=== PATIENT | male | born 1955 | race Caucasian/White ===

== ENCOUNTER 2022-10-05 18:55 | Inpatient (IN) | payer MEDICARE, BC, SELFPAY ==
--- NOTE | ~2022-10-05 | XR_ITS ---
EXAMINATION: XR HIP, RIGHT CLINICAL INFORMATION: Acute right hip pain COMPARISON: None available. TECHNIQUE: Two views of the right hip. FINDINGS: There is a subtle irregular lucency seen along the intertrochanteric region suggestive of complex fracture. There is no dislocation. There is total left hip prosthesis in place.. Rest of the visualized pelvis is unremarkable XR/XR hip RT w PEL1V IMPRESSION: Nondisplaced complex intertrochanteric fracture right hip. Total left hip prosthesis is in place with no loosening. There is no dislocation.
--- NOTE | ~2022-10-05 | CT_ITS ---
EXAMINATION: CT PELVIS WITHOUT CONTRAST CLINICAL INFORMATION: Right hip pain COMPARISON: AP pelvis performed earlier today at 6:00 PM TECHNIQUE: Helical scanning was performed with submillimeter collimation through the pelvis. Sagittal and coronal multiplanar 2-D reconstructions were obtained. This CT examination was performed using dose optimization techniques as appropriate, variously including the following: *Automated exposure control *Adjustment of mA and/or kV according to patient size (this includes techniques or standardized protocols for targeted exams where dose is matched to indication/reason for exam; i.e. extremities or head) *Use of iterative reconstruction technique DLP: 320 mGy-cm FINDINGS: PELVIS: There is scattered stool and gas seen throughout the colon without distention. The small bowel loops are normal caliber. No retroperitoneal lymph nodes or mass seen. There is no free fluid or free air. The bladder is nondistended with multiple dependent radiopaque calculi or gravel. No bladder wall thickening seen. OSSEOUS STRUCTURES: There is a right hip comminuted intertrochanteric fracture without displacement. No additional fracture seen. There is diffuse osteopenia. There is a normal left hip prosthesis in place. CT/CT pelvis wo IV con IMPRESSION: 1. Comminuted right hip intertrochanteric fracture without displacement or dislocation. 2. Total left hip prosthesis in satisfactory alignment.. 3. Diffuse osteopenia..
--- NOTE | ~2022-10-05 | FL_ITS ---
EXAMINATION: XR FLUOROSCOPY WITH IMAGES CLINICAL INFORMATION: Right hip fracture. COMPARISON: 10/05/2022. TECHNIQUE: Fluoroscopy Supervised By: Dr. Sera Stephenson. Fluoroscopy Time: 0.9 minutes. 20.9 mg DAP: 0.363 Gycm2. Images: 5. FINDINGS: 5 images demonstrate placement of compression screw and intramedullary radha for right proximal femoral fracture. Alignment appears satisfactory on provided imaging. FL/FL guidance in OR IMPRESSION: Intraoperative fluoroscopy for orthopedic procedure.
[2022-10-05 19:13] VITALS: BP 125/86; BP 142/98; PULSE 79; PULSE 81; RESP 18; TEMP 36.6; O2SAT 98; O2SAT 99; BMI 23.9
--- NOTE | 2022-10-05 19:24 | ED.GENADULT ---
HPI - General Adult General Chief complaint: Extremity Injury, Lower Stated complaint: fall Time Seen by Provider: 10/05/22 19:14 Source: patient and EMS Mode of arrival: EMS Limitations: other (Dementia) History of Present Illness HPI narrative: 66-year-old male with history of dementia presents with right hip pain. Appears the hip pain may have started 2 days ago. There was no witnessed fall or injury. The pain is moderate in nature. Does not radiate. Worse with movement. Patient does claim to have fallen but he reports this could have happened months ago. He denies any headache, vision changes, nausea, vomiting, photo or phonophobia. He denies any new numbness, tingling or focal weakness. He denies any other musculoskeletal complaints. Related Data Allergies Allergy/AdvReac Type Severity Reaction Status Date / Time No Known Allergies Allergy Verified 10/05/22 19:18 [facility] Social History Social History Advance Directives: No Advance Directives Information Provided: No Physical Exam ED Vital Signs: Vital Signs - 24 hr 10/05/22 19:13 10/05/22 20:44 Temperature 97.9 F 97.7 F Pulse Rate 79 68 Respiratory Rate 18 16 Blood Pressure 125/86 134/75 Pulse Oximetry 98 100 Oxygen Delivery Method Room Air Room Air BMI result Body Mass Index 23.9 GEN: Well developed, no acute distress, alert, oriented to person and place HEENT: Normocephalic, atraumatic, normal external ears, nose appears normal, no oropharyngeal edema or exudates Eyes: Normal to appearance Neck: Supple, no lymphadenopathy Respiratory: Talks in complete sentences, no respiratory distress, clear to auscultation bilaterally Cardiovascular: Regular rate and rhythm, no murmurs rubs or gallops Abdomen: Soft, nontender, nondistended, no guarding, no rebound Back: No CVA tenderness Extremities: No clubbing cyanosis or edema, right leg may be slightly shortened and slightly externally rotated, tender range of motion Neurologic: No focal neurologic deficits, cranial nerves 2-12 intact, strength is 5/5 bilaterally Skin: No rash Course Course Course Narrative: 66-year-old male presents with right hip pain. Reportedly has a nondisplaced hip fracture on the right leg according to external x-ray report however, I do not have this report to confirm this. Patient denies any other complaints. He does have a slight external rotation and shortening of the right leg. The this is concerning for hip fracture. Will order an x-ray and re-evaluate patient there is no evidence of additional trauma. This time, there is no indication to do any further imaging studies. Should a fracture be evident on x-ray, will order routine lab testing and admitted for possible surgical repair. Reevaluation(s) Reevaluation #1: Patient with hip Fracture. Discussed with JOSHUA Meyers after midnight, needs medical clearance. Time: 21:55 Medications Administered Discontinued Medications Generic Name Dose Route Start Last Admin Trade Name Freq PRN Reason Stop Dose Admin Oxycodone HCl 5 mg 10/05/22 19:18 10/05/22 19:25 Oxycodone Hcl Immed Release 5 Mg Tablet PO 10/05/22 19:19 5 mg ONCE ONE Administration Medical Decision Making Medical Decision Making MDM Narrative: 66-year-old male presents with right hip pain. Reportedly has a nondisplaced hip fracture on the right leg according to external x-ray report however, I do not have this report to confirm this. Patient denies any other complaints. He does have a slight external rotation and shortening of the right leg. The this is concerning for hip fracture. Will order an x-ray and re-evaluate patient there is no evidence of additional trauma. This time, there is no indication to do any further imaging studies. Should a fracture be evident on x-ray, will order routine lab testing and admitted for possible surgical repair Differential Diagnosis Differential Diagnoses: The differential diagnosis associated with the presentation includes (Fracture, sprain, strain, contusion, spasm) closed right hip fracture Admission/Observation Consideration of admission/observation: Escalation of care including admission/observation considered Lab Data 10/05/22 21:25 10/05/22 21:25 Labs: Lab Results 10/05/22 10/05/22 10/05/22 Range/Units 21:25 21:25 21:25 WBC 5.8 (4.8-10.8) X10*3/uL RBC 3.95 L (4.60-5.80) X10*6/uL Hgb 12.5 L (14.0-18.0) g/dl Hct 37.5 L (42.0-52.0) % MCV 94.9 (80.0-98.0) fL MCH 31.6 (27.0-33.0) pg MCHC 33.3 (31.0-36.0) g/dl RDW 12.8 (11.0-16.0) % Plt Count 213 (160-400) X10*3/uL MPV 8.4 L (9.4-12.4) fL Immature Gran % (Auto) 1.0 H (0.0-0.4) % Neut % (Auto) 66.7 (45-73) % Lymph % (Auto) 16.8 L (20-40) % [place] % (Auto) 9.0 (2-11) % Eos % (Auto) 6.2 H (0-4) % Baso % (Auto) 0.3 (0-2) % Lymph # (Auto) 1.0 L (1.2-4.9) X10*3/uL [place] # (Auto) 0.5 (0.1-1.2) X10*3/uL Eos # (Auto) 0.4 (0.0-0.4) X10*3/uL Baso # (Auto) 0.0 (0.0-0.2) X10*3/uL Abs Immat Gran (auto) 0.06 H (0.00-0.03) X10*3/uL Absolute Neuts (auto) 3.9 (2.0-8.3) x10*3/uL Absolute Nucleated RBC 0.000 (0.0-0.012) X10*3/uL Nucleated RBC % (auto) 0.0 (0.0-0.2) /100WBC PT 10.8 (10.0-13.1) SEC INR 0.9 (0.9-1.1) APTT 36.7 H (26.0-36.4) SEC Sodium 139 (135-145) mmol/L Potassium 4.3 (3.3-5.1) mmol/L Chloride 103 (96-108) mmol/L Carbon Dioxide 31 H (22-29) mmol/L Anion Gap 9 L (12-20) BUN 21 H (9-16) mg/dL Creatinine 0.65 (0.5-1.4) mg/dL Estim Creat Clear Calc 113.8 Estimated GFR > 60 Random Glucose 103 (60-115) mg/dL Calcium 9.2 (8.4-10.2) mg/dL Independent Interpretation I performed an independent interpretation of an: EKG (Normal sinus rhythm heart rate 69, normal intervals, no acute ST elevations or depressions) and Plain X-Ray Radiology Impression Discussion of test interpretation with radiology: I have reviewed the radiologist's reading. ( XR/XR hip RT w PEL1V IMPRESSION: Nondisplaced complex intertrochanteric fracture right hip. Total left hip prosthesis is in place with no loosening. There is no dislocation. Dictated By:Angelito De La Cruz MDSigned By:<Electronically signed by Angelito De La Cruz MD in OV>10/05/22) Independent Historian Clinical information obtained from an independent historian. History obtained from or confirmed by: EMS Prescription Management I considered prescription management with: Pain Medication Discharge Plan Discharge Clinical Impression: Fracture of hip Patient Disposition: Admitted As Inpatient
[2022-10-05] MEDS: oxyCODONE HCl Immed Release 5 MG TABLET PO (19:25)
[2022-10-05 20:44] VITALS: BP 134/75; PULSE 68; RESP 16; TEMP 36.5; O2SAT 100
--- NOTE | 2022-10-05 20:51 | ECG_ITS ---
Test Reason : CHEST PAIN Blood Pressure : / mmHG Vent. Rate : 069 BPM Atrial Rate : 069 BPM P-R Int : 204 ms QRS Dur : 100 ms QT Int : 376 ms P-R-T Axes : 058 029 063 degrees QTc Int : 402 ms Normal sinus rhythm Normal ECG No previous ECGs available Referred By: Colt Jackson Electronically Signed By:ERIKA ALEXANDER
[2022-10-05 21:29] LABS: MANUAL DIFF FLAG NO
[2022-10-05 21:31] LABS: Basophils Percent Auto 0.3 % (0-2); Eosinophils Absolute Auto 0.4 X10*3/uL (0.0-0.4); Eosinophils Percent Auto 6.2 % (0-4); Hematocrit 37.5 % (42.0-52.0); Hemoglobin 12.5 g/dl (14.0-18.0); Imm Gran Abs Auto 0.06 X10*3/uL (0.00-0.03); Lymphocytes Percent Auto 16.8 % (20-40); Mean Corpuscular HGB Conc 33.3 g/dl (31.0-36.0); Mean Corpuscular Hemoglobin 31.6 pg (27.0-33.0); Mean Corpuscular Volume 94.9 fL (80.0-98.0); Mean Platelet Volume 8.4 fL (9.4-12.4); Monocytes Absolute Auto 0.5 X10*3/uL (0.1-1.2); Neutrophils Absolute Auto 3.9 x10*3/uL (2.0-8.3); Neutrophils Percent Auto 66.7 % (45-73); Platelet Count 213 X10*3/uL (160-400); Red Blood Count 3.95 X10*6/uL (4.60-5.80); Red Cell Distribution Width 12.8 % (11.0-16.0); White Blood Count 5.8 X10*3/uL (4.8-10.8)
[2022-10-05 21:36] LABS: INTERNATIONAL NORM RATIO 0.9 (0.9-1.1); Prothrombin Time 10.8 SEC (10.0-13.1)
[2022-10-05 21:39] LABS: Partial Thromboplastin Time 36.7 SEC (26.0-36.4)
[2022-10-05 21:42] LABS: Anion Gap 9 (12-20); Blood Urea Nitrogen 21 mg/dL (9-16); Calcium 9.2 mg/dL (8.4-10.2); Carbon Dioxide 31 mmol/L (22-29); Chloride 103 mmol/L (96-108); Creatinine Clr Calc Pharmacy 113.8; Estimated Glomerular Filt Rate > 60; Glucose Random 103 mg/dL (60-115); Potassium 4.3 mmol/L (3.3-5.1); Sodium 139 mmol/L (135-145)
[2022-10-05 22:00] VITALS: BP 123/83; PULSE 67; RESP 14; TEMP 36.2; O2SAT 98
--- NOTE | 2022-10-05 22:00 | PC.NURSE ---
late entry-this rn assisted pt in changing into hospital gown. bedlinens changed. excess linens removed from bed. pt HOB lowered for comfort
--- NOTE | 2022-10-05 22:21 | P.HPHOSP_ITS ---
History of Present Illness Date of Service: 10/05/22 Attending physician on admission: Corinne Saha Chief Complaint: hip pain This is a 66-year-old male with a past medical history as noted below who presents to the emergency department with right-sided hip pain ongoing for the past 2 days. Unfortunately, patient is a limited historian secondary to dementia however he denies recent falls/trauma. Patient did report to ED provider that he ?might have fallen a few months ago?. Unfortunately, I am unable to reach patient's mother whom he lives with at this time. Currently, denies headache, nausea, vomiting, numbness, tingling or weakness trauma extremities. Hip and pelvis x-ray:Nondisplaced complex intertrochanteric fracture right hip. Total left hip prosthesis is in place with no loosening. There is no dislocation. Official read of CT pelvis pending at time of this dictation. Initial laboratory results: HGB 12 0.5/37.5, platelets 213, PTT/INR 10.8/0.9, APTT 36.7, BUN/creatinine 21/0.65, carbon dioxide 31, anion gap 9. In the emergency department the above was performed and patient received 5 mg p.o. oxycodone. The decision was made to admit patient for medical management. Review of Systems Review of Systems: A complete 12 point review of systems was performed and are negative if not noted in HPI. [facility] Medical History (Updated 10/05/22 @ 22:56 by JENA Dupree) Chronic back pain Dementia Skull fracture Pertinent family history: Patient reports mother is healthy Surgical History (Updated 10/05/22 @ 22:56 by JENA Dupree) History of surgery on lower extremity Social History Advance Directives: No Advance Directives Information Provided: No Meds Allergies Allergy/AdvReac Type Severity Reaction Status Date / Time No Known Allergies Allergy Verified 10/05/22 19:18 Physical Exam Vital Signs and Narrative: Vital Signs: Last Vital Signs Temp 97.2 F 10/05/22 22:00 Pulse 67 10/05/22 22:00 Resp 14 10/05/22 22:00 BP 123/83 10/05/22 22:00 Pulse Ox 98 10/05/22 22:00 O2 Del Method Room Air 10/05/22 22:00 BMI result Body Mass Index 23.9 Const: Other: General: Appears stated age, in no acute distress, patient is limited with replies to questions secondary to dementia. Skin: Warm and well perfused, no obvious lesions, bruises, open wounds or sores Cardiology: Regular rate and rhythm, no murmurs, rubs, gallops or clicks, no JVD or carotid bruits appreciated Respiratory: Lungs CTAB, no inspiratory wheezing, rales or rhonchi, no increased accessory muscle use noted Abdomen: Soft, non distended, nontender, bowel sounds active in all 4 quadrants, no abdominal guarding or Wayne sign Musculoskeletal: Extremity: No pitting edema noted, no redness, tenderness or swelling noted to bilateral lower extremities. Right lower extremity mildly rotated externally, tenderness noted to right hip on exam without bruising. Neuro: Alert and oriented to person and situation, limited historian secondary to dementia Psych: Calm, appropriate, follows commands, no agitation restlessness noted Results Labs 10/05/22 21:25 10/05/22 21:25 Labs: Laboratory Results - last 24 hr 10/05/22 10/05/22 10/05/22 21:25 21:25 21:25 MCV 94.9 MCH 31.6 MCHC 33.3 RDW 12.8 Plt Count 213 MPV 8.4 L Immature Gran % (Auto) 1.0 H Neut % (Auto) 66.7 Lymph % (Auto) 16.8 L [place] % (Auto) 9.0 Eos % (Auto) 6.2 H Baso % (Auto) 0.3 Lymph # (Auto) 1.0 L [place] # (Auto) 0.5 Eos # (Auto) 0.4 Baso # (Auto) 0.0 Abs Immat Gran (auto) 0.06 H Absolute Neuts (auto) 3.9 Absolute Nucleated RBC 0.000 Nucleated RBC % (auto) 0.0 PT 10.8 INR 0.9 APTT 36.7 H Anion Gap 9 L Estim Creat Clear Calc 113.8 Estimated GFR > 60 Random Glucose 103 Calcium 9.2 Blood Type Antibody Screen 10/05/22 21:25 MCV MCH MCHC RDW Plt Count MPV Immature Gran % (Auto) Neut % (Auto) Lymph % (Auto) [place] % (Auto) Eos % (Auto) Baso % (Auto) Lymph # (Auto) [place] # (Auto) Eos # (Auto) Baso # (Auto) Abs Immat Gran (auto) Absolute Neuts (auto) Absolute Nucleated RBC Nucleated RBC % (auto) PT INR APTT Anion Gap Estim Creat Clear Calc Estimated GFR Random Glucose Calcium Blood Type O Positive Antibody Screen NEGATIVE Imaging Radiologist's Impressions: Impressions Hip/Pelvis X-Ray 10/05/22 19:47 IMPRESSION: Nondisplaced complex intertrochanteric fracture right hip. Total left hip prosthesis is in place with no loosening. There is no dislocation. Assessment and Plan (1) Fracture of hip: Status: Acute Plan This is a [age]-year-old male with a past medical history of dementia will be admitted to the hospital due to right hip fracture. ACUTE MEDICAL ISSUES: Right hip fracture -Hip and pelvis x-ray:Nondisplaced complex intertrochanteric fracture right hip. Total left hip prosthesis is in place with no loosening. There is no dislocation. -Official read of CT pelvis pending at time of this dictation. -analgesics, antiemetics antipyretics ordered -consult placed for ortho as patient will likely require surgical repair in a.m. -NPO at midnight. IV fluids. Up questions in place. CHRONIC MEDICAL ISSUES: Chronic back pain -patient wears a brace. Denies change in pain level. Fall precautions in place. Dementia -frequent reorientation. Fall /aspiration precautions. OTHER: DVT prophylaxis-intermittent sequential boots, patient requires surgical procedure in a.m., hold off chemical. Patient is presumed full code. HCP/person to contact is patient's mother Christal Mac, Time Spent With Patient Time: Total time managing care of this patient today ____ minutes. Quality Stroke Does the patient have a stroke diagnosis?: No VTE Prior VTE?: No VTE Risk Level:: Medical - moderate - high VTE Device Contraindication: N/A - Device Ordered VTE Drug Contraindication: Treatment Not Indicated
[2022-10-06] VITALS (11 sets, daily range): BP systolic 96–136; BP diastolic 55–87; PULSE 62–78; RESP 14–18; TEMP 36.1–36.6; O2SAT 97–99; BMI 23.9
[2022-10-06] MEDS: oxyCODONE HCl Immed Release 5 MG TABLET PO (00:54)
[2022-10-06] MEDS: Lactated Ringers 1,000 ML 80 ML IVCONT ×2 (01:20→11:35)
[2022-10-06] MEDS: 0.9 % Sodium Chloride Flush 3 ML SYRINGE IVFLUSH (01:21)
--- NOTE | 2022-10-06 01:30 | PC.NURSE ---
late entry- iv placed. 20 g in L ac. pt medicated according to aug. pt boosted up in bed. lights dimmed
--- NOTE | 2022-10-06 04:20 | PC.NURSE ---
IV line infiltrated. this rn placed 20g in R AC. pt tolerated well. . IV fluids switched to this iv line. running well. no signs of occlusion. IV in L AC removed at this time
[2022-10-06] MEDS: oxyCODONE HCl Immed Release 5 MG TABLET 7.5 MG PO (06:15)
--- NOTE | 2022-10-06 06:19 | PC.NURSE ---
pt reporting 7/10 pain at this time. pt medicated according to mar. pt clean and dry at this time. this rn emptied 200ml of urine from bedside urinal. pt states no new needs at this time
[2022-10-06 06:26] LABS: Hematocrit 36.9 % (42.0-52.0); Hemoglobin 12.2 g/dl (14.0-18.0); Mean Corpuscular HGB Conc 33.1 g/dl (31.0-36.0); Mean Corpuscular Hemoglobin 31.6 pg (27.0-33.0); Mean Corpuscular Volume 95.6 fL (80.0-98.0); Mean Platelet Volume 8.5 fL (9.4-12.4); Platelet Count 208 X10*3/uL (160-400); Red Blood Count 3.86 X10*6/uL (4.60-5.80); White Blood Count 5.4 X10*3/uL (4.8-10.8)
[2022-10-06 06:43] LABS: Anion Gap 11 (12-20); Blood Urea Nitrogen 17 mg/dL (9-16); Calcium 9.2 mg/dL (8.4-10.2); Carbon Dioxide 30 mmol/L (22-29); Chloride 104 mmol/L (96-108); Creatinine Clr Calc Pharmacy 115.6; Estimated Glomerular Filt Rate > 60; Glucose Random 86 mg/dL (60-115); Potassium 4.1 mmol/L (3.3-5.1); Sodium 141 mmol/L (135-145)
--- NOTE | 2022-10-06 07:08 | PC.NURSE ---
pt alert, reporting 7/10 low back pain. LR running. will cont to [facility]
--- NOTE | 2022-10-06 07:38 | PHA.MEDREC ---
Pharmacy Consult ? Medication Reconciliation Pharmacy has completed the medication reconciliation. Pt with list from [facility] and [facility]
--- NOTE | 2022-10-06 08:13 | P.HPOP_ITS ---
History of Present Illness History of Present Illness Date of Service: 10/06/22 Chief complaint: fall Narrative: Nabeel Mac is a 66 year old male who resides at [facility] in [place]. He has a PMH significant for a Brain tumor with brain surgery, Epilepsy last seizure was believed to be December of last year, anxiety, dementia and dysphagia. Patient reports that he fell about 2 weeks ago and this is also confirmed with the family via telephone. He walks at baseline with a walker. No thinner use. Hx of left hip fx with implant. X-rays obtained in the ED reveal a right hip intertrochanteric fracture. The patient was admitted to the medicine service with orthopedic consult for further evaluation and treatment. Review of Systems Review of Systems: Yes all other systems are reviewed and are negative [facility] Past Medical History Medical History (Updated 10/05/22 @ 22:56 by JENA Dupree) Chronic back pain Dementia Skull fracture Surgical History Surgical History (Updated 10/05/22 @ 22:56 by JENA Dupree) History of surgery on lower extremity Social History Social History Patient Tobacco Use Status: Never used Tobacco Smoked in Last 30 Days: No Use of substances other than those prescribed or required for medical reasons: No Advance Directives: No Advance Directives Information Provided: No Nutrition Risks: No Nutritional Risk Meds Allergies Allergy/AdvReac Type Severity Reaction Status Date / Time No Known Allergies Allergy Verified 10/05/22 19:18 Active Medications: Current Medications Acetaminophen (Acetaminophen 325 Mg Tablet) 650 mg PO Q6H PRN PRN Reason: FEVER, Pain,(Pain Scale 1-3) Al Hydroxide/Mg Hydroxide (Magnesium Hydrox/Alum Hydrox 30 Ml Oral.Susp) 30 ml PO Q4H PRN PRN Reason: Indigestion Baclofen (Baclofen 10 Mg Tablet) 5 mg PO BID MICAELA Bisacodyl (Bisacodyl 10 Mg Supp.Rect) 10 mg [place] DAILY PRN PRN Reason: Constipation Docusate Sodium (Docusate Sodium 100 Mg Capsule) 100 mg PO BID MICAELA Folic Acid (Folic Acid 1 Mg Tablet) 1 mg PO DAILY MICAELA Guaifenesin (Guaifenesin 100 Mg/5 Ml Liquid) 10 ml PO Q4H PRN PRN Reason: Cough Lactated Ringer's (Lr) 1,000 mls @ 80 mls/hr IVCONT .[id number] [facility] Last Admin: 10/06/22 01:20 Dose: 80 mls/hr Latanoprost (Latanoprost 0.005 % Ophth Elizabeth 2.5 Ml Drops) 1 drop EYE-BOTH BEDTIME [facility] Levetiracetam (Levetiracetam 1,000 Mg Tablet) 1,000 mg PO BID [facility] Magnesium Hydroxide (Milk Of Magnesia 30 Ml Oral.Susp) 30 ml PO DAILY PRN PRN Reason: Constipation Melatonin (Melatonin 3 Mg Tablet) 6 mg PO BEDTIME [facility] Naloxone HCl (Naloxone Hcl 0.4 Mg/Ml Vial) 0.1 mg IVPUSH Q2M PRN PRN Reason: Respiratory Rate < 10 Ondansetron HCl (Ondansetron Hcl 4 Mg/2 Ml Vial) 4 mg IVPUSH Q8H PRN PRN Reason: Nausea and Vomiting Oxycodone HCl (Oxycodone Hcl Immed Release 5 Mg Tablet) 5 mg PO Q6H PRN PRN Reason: Pain, Moderate (Pain Scale 4-6 Last Admin: 10/06/22 00:54 Dose: 5 mg Oxycodone HCl (Oxycodone Hcl Immed Release 5 Mg Tablet) 7.5 mg PO Q6H PRN PRN Reason: Pain, Severe (Pain Scale 7-10) Last Admin: 10/06/22 06:15 Dose: 7.5 mg Senna (Sennosides 8.6 Mg Tablet) 17.2 mg PO BEDTIME PRN PRN Reason: Constipation Sodium Chloride (0.9 % Sodium Chloride Flush 3 Ml Syringe) 3 ml IVFLUSH QSHIFT [facility] Last Admin: 10/06/22 01:21 Dose: 3 ml Tamsulosin HCl (Tamsulosin Hcl 0.4 Mg Capsule) 0.4 mg PO DAILY [facility] Timolol Maleate (Timolol Maleate 0.5 % Oph Elizabeth 5 Ml Drbtl) 1 drop EYE-LEFT DAILY [facility] Home Medications Medication Instructions Recorded Confirmed Last Taken Type acetaminophen 325 mg tablet 650 mg PO Q4H PRN Fever 10/06/22 10/06/22 Unknown History acetaminophen 500 mg tablet 1,000 mg PO BID 10/06/22 10/06/22 Unknown History aluminum-mag hydroxide-simethicone 30 ml PO Q4H PRN Indigestion 10/06/22 3 Unknown History 200 mg-200 mg-20 mg/5 mL oral susp (Ophelia-Lanta) baclofen 5 mg tablet 5 mg PO BID 10/06/22 10/06/22 Unknown History bisacodyl 10 mg rectal suppository 10 mg [place] DAILY PRN Constipation 10/06/22 10/06/22 Unknown History folic acid 1 mg tablet 1 mg PO DAILY 10/06/22 10/06/22 Unknown History guaifenesin 100 mg/5 mL oral 200 mg PO Q4H PRN Cough 10/06/22 10/06/22 Unknown History liquid (Ophelia-Tussin) latanoprost 0.005 % eye drops 1 drp ophthalmic (eye) BEDTIME 10/06/22 10/06/22 Unknown History levetiracetam 1,000 mg tablet 1,000 mg PO BID 10/06/22 10/06/22 Unknown History linaclotide 290 mcg capsule 290 mcg PO DAILY 10/06/22 10/06/22 Unknown History (Linzess) magnesium hydroxide 400 mg/5 mL 30 ml PO DAILY PRN Constipation 10/06/22 10/06/22 Unknown History oral suspension (Milk of Magnesia) melatonin 3 mg tablet 6 mg PO BEDTIME 10/06/22 10/06/22 Unknown History menthol 5 % topical patch (Icy Hot 1 patch topical DAILY 10/06/22 10/06/22 Unknown History (menthol)) tamsulosin 0.4 mg capsule 0.4 mg PO DAILY 10/06/22 10/06/22 Unknown History timolol maleate 0.5 % eye drops 1 drp ophthalmic-Left DAILY 10/06/22 10/06/22 Un known History Physical Exam Vital Signs: Vital Signs: Last Vital Signs Temp 97.7 F 10/06/22 07:31 Pulse 68 10/06/22 07:31 Resp 17 10/06/22 07:31 BP 131/70 10/06/22 07:31 Pulse Ox 99 10/06/22 07:31 O2 Del Method Room Air 10/06/22 07:31 BMI result Body Mass Index 23.9 Const: General: cooperative, healthy appearing and no acute distress Resp: Effort & Inspection: normal respiratory effort and able to speak in complete sentences Cardio: Rate: regular rate Peripheral pulses: Peripheral pulses 2+ throughout GI: Palpation (GI): Soft to palpation Skin: Lesions: no lesions Rashes: no rashes Extrem: Other: Right hip tenderness to palpation lateral aspect. Skin is intact. Able to dorsi/plantarflex. NVI. Results Labs 10/06/22 05:48 10/06/22 05:48 Labs: Abnormal lab results 10/05/22 10/05/22 10/05/22 Range/Units 21:25 21:25 21:25 RBC 3.95 L (4.60-5.80) X10*6/uL Hgb 12.5 L (14.0-18.0) g/dl Hct 37.5 L (42.0-52.0) % MPV 8.4 L (9.4-12.4) fL Immature Gran % (Auto) 1.0 H (0.0-0.4) % Lymph % (Auto) 16.8 L (20-40) % Eos % (Auto) 6.2 H (0-4) % Lymph # (Auto) 1.0 L (1.2-4.9) X10*3/uL Abs Immat Gran (auto) 0.06 H (0.00-0.03) X10*3/uL APTT 36.7 H (26.0-36.4) SEC Carbon Dioxide 31 H (22-29) mmol/L Anion Gap 9 L (12-20) BUN 21 H (9-16) mg/dL 10/06/22 10/06/22 Range/Units 05:48 05:48 RBC 3.86 L (4.60-5.80) X10*6/uL Hgb 12.2 L (14.0-18.0) g/dl Hct 36.9 L (42.0-52.0) % MPV 8.5 L (9.4-12.4) fL Immature Gran % (Auto) (0.0-0.4) % Lymph % (Auto) (20-40) % Eos % (Auto) (0-4) % Lymph # (Auto) (1.2-4.9) X10*3/uL Abs Immat Gran (auto) (0.00-0.03) X10*3/uL APTT (26.0-36.4) SEC Carbon Dioxide 30 H (22-29) mmol/L Anion Gap 11 L (12-20) BUN 17 H (9-16) mg/dL H & H 10/05/22 10/06/22 Range/Units 21:25 05:48 Hgb 12.5 L 12.2 L (14.0-18.0) g/dl Hct 37.5 L 36.9 L (42.0-52.0) % Coagulation 10/05/22 Range/Units 21:25 INR 0.9 (0.9-1.1) All other labs normal. Assessment and Plan (1) Fracture of hip: Status: Acute Plan I discussed the case with Seema Ramachandran and explained the extent of the injury to the patient as well has his mother, Komal, and sister Camille. I discussed options available which include surgical intervention. I explained the procedure in detail along with the length of recovery and rehab course. I explained the risk, benefits and alternatives. Risk including, but not limited to infection, blood clots, bleeding, non union or malunion and nerve/tissue damage to surrounding areas. I answered all their questions and with their understanding they have consented to move forward with Operative Fixation of the right hip. The patient will be T&S, med clearance obtained by medicine and remain NPO. Camille can be reached at [phone] for consent. Patient's mother is 93 and requests we contact daughter. Time Spent With Patient Time: Total time managing care of this patient today ____ minutes. Quality Stroke Does the patient have a stroke diagnosis?: No VTE Prior VTE?: No VTE Risk Level:: Medical - moderate - high VTE Device Contraindication: N/A - Device Ordered VTE Drug Contraindication: Treatment Not Indicated Procedures Date of Service Date of Service: 10/06/22
--- NOTE | 2022-10-06 08:13 | PC.NURSE ---
Sister phone Number Camille [phone]
[2022-10-06] MEDS: Docusate Sodium 100 MG CAPSULE PO ×2 (10:25→20:25)
[2022-10-06] MEDS: Folic Acid 1 MG TABLET PO (10:26)
[2022-10-06] MEDS: levETIRAcetam 1,000 MG TABLET 1000 MG PO ×2 (10:26→20:25)
[2022-10-06] MEDS: Tamsulosin HCL 0.4 MG CAPSULE PO (10:27)
[2022-10-06] MEDS: Baclofen 10 MG TABLET 5 MG PO ×2 (10:29→20:24)
--- NOTE | 2022-10-06 10:34 | PC.NURSE ---
pt medicated per AUG. Aguilar inserted per tiged text from
--- NOTE | 2022-10-06 10:36 | P.PNIM_ITS ---
Subjective Subjective Date of Service: 10/06/22 Interval History: Seen and evaluated reports pain under fair control No fever or chills No other overnight events Review of Systems Review of Systems: Yes all other systems are reviewed and are negative Physical Exam Vital Signs: Vital Signs: Last Vital Signs Temp 97.7 F 10/06/22 07:31 Pulse 68 10/06/22 07:31 Resp 17 10/06/22 07:31 BP 131/70 10/06/22 07:31 Pulse Ox 99 10/06/22 07:31 O2 Del Method Room Air 10/06/22 07:31 BMI result Body Mass Index 23.9 Const: Other: General: no acute distress, interactive Skin: Warm and well perfused Cardiology: Regular rate and rhythm, no murmurs,, no JVD or carotid bruits appreciated Respiratory: Lungs CTAB, no inspiratory wheezing, rales or rhonchi, Abdomen: Soft, non distended, nontender, bowel sounds active Musculoskeletal: Right leg externally rotated Extremity: No pitting edemano redness, tenderness or swelling noted to bilateral lower extremities Neuro: Alert and oriented to person and situation, limited historian secondary to dementia Psych: Calm, follows commands, no agitation restlessness noted Objective Data Active Medications Acetaminophen (Acetaminophen 325 Mg Tablet) 650 mg PO Q6H PRN PRN Reason: FEVER, Pain,(Pain Scale 1-3) Al Hydroxide/Mg Hydroxide (Magnesium Hydrox/Alum Hydrox 30 Ml Oral.Susp) 30 ml PO Q4H PRN PRN Reason: Indigestion Baclofen (Baclofen 10 Mg Tablet) 5 mg PO BID [facility] Last Admin: 10/06/22 10:29 Dose: 5 mg Documented By: PREET Bisacodyl (Bisacodyl 10 Mg Supp.Rect) 10 mg [place] DAILY PRN PRN Reason: Constipation Docusate Sodium (Docusate Sodium 100 Mg Capsule) 100 mg PO BID [facility] Last Admin: 10/06/22 10:25 Dose: 100 mg Documented By: PREET Folic Acid (Folic Acid 1 Mg Tablet) 1 mg PO DAILY [facility] Last Admin: 10/06/22 10:26 Dose: 1 mg Documented By: PREET Guaifenesin (Guaifenesin 100 Mg/5 Ml Liquid) 10 ml PO Q4H PRN PRN Reason: Cough Lactated Ringer's (Lr) 1,000 mls @ 80 mls/hr IVCONT .[id number] [facility] Last Admin: 10/06/22 01:20 Dose: 80 mls/hr Documented By: MAKENZIE Latanoprost (Latanoprost 0.005 % Ophth Elizabeth 2.5 Ml Drops) 1 drop EYE-BOTH BEDTIME [facility] Levetiracetam (Levetiracetam 1,000 Mg Tablet) 1,000 mg PO BID [facility] Last Admin: 10/06/22 10:26 Dose: 1,000 mg Documented By: PREET Magnesium Hydroxide (Milk Of Magnesia 30 Ml Oral.Susp) 30 ml PO DAILY PRN PRN Reason: Constipation Melatonin (Melatonin 3 Mg Tablet) 6 mg PO BEDTIME [facility] Naloxone HCl (Naloxone Hcl 0.4 Mg/Ml Vial) 0.1 mg IVPUSH Q2M PRN PRN Reason: Respiratory Rate < 10 Ondansetron HCl (Ondansetron Hcl 4 Mg/2 Ml Vial) 4 mg IVPUSH Q8H PRN PRN Reason: Nausea and Vomiting Oxycodone HCl (Oxycodone Hcl Immed Release 5 Mg Tablet) 5 mg PO Q6H PRN PRN Reason: Pain, Moderate (Pain Scale 4-6 Last Admin: 10/06/22 00:54 Dose: 5 mg Documented By: MAKENZIE Oxycodone HCl (Oxycodone Hcl Immed Release 5 Mg Tablet) 7.5 mg PO Q6H PRN PRN Reason: Pain, Severe (Pain Scale 7-10) Last Admin: 10/06/22 06:15 Dose: 7.5 mg Documented By: MAKENZIE Senna (Sennosides 8.6 Mg Tablet) 17.2 mg PO BEDTIME PRN PRN Reason: Constipation Sodium Chloride (0.9 % Sodium Chloride Flush 3 Ml Syringe) 3 ml IVFLUSH QSHIFT [facility] Last Admin: 10/06/22 10:25 Dose: Not Given Documented By: PREET Non-Admin Reason: IV Running Tamsulosin HCl (Tamsulosin Hcl 0.4 Mg Capsule) 0.4 mg PO DAILY [facility] Last Admin: 10/06/22 10:27 Dose: 0.4 mg Documented By: PREET Timolol Maleate (Timolol Maleate 0.5 % Oph Elizabeth 5 Ml Drbtl) 1 drop EYE-LEFT DAILY [facility] Labs 10/06/22 05:48 10/06/22 05:48 Labs: Laboratory Results - last 24 hr 10/05/22 10/05/22 10/05/22 21:25 21:25 21:25 MCV 94.9 MCH 31.6 MCHC 33.3 RDW 12.8 Plt Count 213 MPV 8.4 L Immature Gran % (Auto) 1.0 H Neut % (Auto) 66.7 Lymph % (Auto) 16.8 L Rankin % (Auto) 9.0 Eos % (Auto) 6.2 H Baso % (Auto) 0.3 Lymph # (Auto) 1.0 L Rankin # (Auto) 0.5 Eos # (Auto) 0.4 Baso # (Auto) 0.0 Abs Immat Gran (auto) 0.06 H Absolute Neuts (auto) 3.9 Absolute Nucleated RBC 0.000 Nucleated RBC % (auto) 0.0 PT 10.8 INR 0.9 APTT 36.7 H Anion Gap 9 L Estim Creat Clear Calc 113.8 Estimated GFR > 60 Random Glucose 103 Calcium 9.2 Blood Type Antibody Screen 10/05/22 10/06/22 10/06/22 21:25 05:48 05:48 MCV 95.6 MCH 31.6 MCHC 33.1 RDW 13.0 Plt Count 208 MPV 8.5 L Immature Gran % (Auto) Neut % (Auto) Lymph % (Auto) Rankin % (Auto) Eos % (Auto) Baso % (Auto) Lymph # (Auto) Rankin # (Auto) Eos # (Auto) Baso # (Auto) Abs Immat Gran (auto) Absolute Neuts (auto) Absolute Nucleated RBC 0.000 Nucleated RBC % (auto) 0.0 PT INR APTT Anion Gap 11 L Estim Creat Clear Calc 115.6 Estimated GFR > 60 Random Glucose 86 Calcium 9.2 Blood Type O Positive Antibody Screen NEGATIVE Assessment and Plan (1) Fracture of hip: Status: Acute Plan This is a [age]-year-old male with a past medical history of dementia will be admitted to the hospital due to right hip fracture. PreOp eval No ACS, Non-emergency surgery RCRI score of 0 Patient carries mild-moderate perioperative cardiovascular risk Can proceed to operating room, no further testing needed Right hip fracture Hip and pelvis x-ray:Nondisplaced complex intertrochanteric fracture right hip analgesics, antiemetics antipyretics Orthopeding to do surgery this afternoon NPO for now Chronic back pain patient wears a brace.Denies change in pain level. Fall precautions in place. Dementia frequent reorientation. Fall /aspiration precautions. Hx Seizure disorder Continue Keppra seizure precautions DVT prophylaxis intermittent sequential boots full code. HCP/person to contact is patient's mother Christal Mac, Will need overnight hospital stay for hip surgery and safe discharge plan Time Spent With Patient Time: Total time managing care of this patient today ____ minutes. Quality Stroke Does the patient have a stroke diagnosis?: No VTE Prior VTE?: No VTE Risk Level:: Medical - moderate - high VTE Device Contraindication: N/A - Device Ordered VTE Drug Contraindication: Treatment Not Indicated
--- NOTE | 2022-10-06 10:57 | PC.NURSE ---
called pharmacy for eye drops, unavailable in [facility].
[2022-10-06] MEDS: timoloL maleate 0.5 % Oph Sol 5 ML DRBTL 1 DROP EYE-LEFT (11:10)
--- NOTE | 2022-10-06 11:30 | PC.NURSE ---
seizure precautions in place, pads in place. O2 functional
--- NOTE | 2022-10-06 11:37 | PC.NURSE ---
pt remians NPO except for PO meds as ordered per MD. LR running per order. Aguilar output at this time 300ml. vitals stable, call feng within reach, will CTM
--- NOTE | 2022-10-06 13:17 | PC.NURSE ---
report given to RN on [employer]
--- NOTE | 2022-10-06 15:25 | P.CONAN_ITS ---
HPI - Anesthesia Eval Consult details Narrative: for IM Nail right hip. PMFSH Active Problems Active Problems: All Active Problems (Updated 10/05/22 @ 22:56 by JENA Dupree) Chronic back pain (Acute) Fracture of hip (Acute) Past Medical History Medical History (Updated 10/05/22 @ 22:56 by JENA Dupree) Chronic back pain Dementia Skull fracture Functional capacity: uses cane/walker Family History Family history of problems with anesthesia: No Surgical History Surgical History (Updated 10/05/22 @ 22:56 by JENA Dupree) History of surgery on lower extremity History of Problems with Anesthesia: No Social History Social History Patient Tobacco Use Status: Never used Tobacco Meds Allergies Allergy/AdvReac Type Severity Reaction Status Date / Time No Known Allergies Allergy Verified 10/05/22 19:18 Active Medications: Current Medications Acetaminophen (Acetaminophen 325 Mg Tablet) 650 mg PO Q6H PRN PRN Reason: FEVER, Pain,(Pain Scale 1-3) Al Hydroxide/Mg Hydroxide (Magnesium Hydrox/Alum Hydrox 30 Ml Oral.Susp) 30 ml PO Q4H PRN PRN Reason: Indigestion Baclofen (Baclofen 10 Mg Tablet) 5 mg PO BID [facility] Last Admin: 10/06/22 10:29 Dose: 5 mg Bisacodyl (Bisacodyl 10 Mg Supp.Rect) 10 mg MS DAILY PRN PRN Reason: Constipation Docusate Sodium (Docusate Sodium 100 Mg Capsule) 100 mg PO BID [facility] Last Admin: 10/06/22 10:25 Dose: 100 mg Folic Acid (Folic Acid 1 Mg Tablet) 1 mg PO DAILY [facility] Last Admin: 10/06/22 10:26 Dose: 1 mg Guaifenesin (Guaifenesin 100 Mg/5 Ml Liquid) 10 ml PO Q4H PRN PRN Reason: Cough Lactated Ringer's (Lr) 1,000 mls @ 80 mls/hr IVCONT .[id number] [facility] Last Admin: 10/06/22 11:35 Dose: 80 mls/hr Latanoprost (Latanoprost 0.005 % Ophth Elizabeth 2.5 Ml Drops) 1 drop EYE-BOTH BEDTIME [facility] Levetiracetam (Levetiracetam 1,000 Mg Tablet) 1,000 mg PO BID [facility] Last Admin: 10/06/22 10:26 Dose: 1,000 mg Magnesium Hydroxide (Milk Of Magnesia 30 Ml Oral.Susp) 30 ml PO DAILY PRN PRN Reason: Constipation Melatonin (Melatonin 3 Mg Tablet) 6 mg PO BEDTIME [facility] Naloxone HCl (Naloxone Hcl 0.4 Mg/Ml Vial) 0.1 mg IVPUSH Q2M PRN PRN Reason: Respiratory Rate < 10 Ondansetron HCl (Ondansetron Hcl 4 Mg/2 Ml Vial) 4 mg IVPUSH Q8H PRN PRN Reason: Nausea and Vomiting Oxycodone HCl (Oxycodone Hcl Immed Release 5 Mg Tablet) 5 mg PO Q6H PRN PRN Reason: Pain, Moderate (Pain Scale 4-6 Last Admin: 10/06/22 00:54 Dose: 5 mg Oxycodone HCl (Oxycodone Hcl Immed Release 5 Mg Tablet) 7.5 mg PO Q6H PRN PRN Reason: Pain, Severe (Pain Scale 7-10) Last Admin: 10/06/22 06:15 Dose: 7.5 mg Senna (Sennosides 8.6 Mg Tablet) 17.2 mg PO BEDTIME PRN PRN Reason: Constipation Sodium Chloride (0.9 % Sodium Chloride Flush 3 Ml Syringe) 3 ml IVFLUSH QSHIFT [facility] Last Admin: 10/06/22 10:25 Dose: Not Given Tamsulosin HCl (Tamsulosin Hcl 0.4 Mg Capsule) 0.4 mg PO DAILY [facility] Last Admin: 10/06/22 10:27 Dose: 0.4 mg Timolol Maleate (Timolol Maleate 0.5 % Oph Elizabeth 5 Ml Drbtl) 1 drop EYE-LEFT DAILY [facility] Last Admin: 10/06/22 11:10 Dose: 1 drop Home Medications Medication Instructions Recorded Confirmed Last Taken Type acetaminophen 325 mg tablet 650 mg PO Q4H PRN Fever 10/06/22 10/06/22 Unknown History acetaminophen 500 mg tablet 1,000 mg PO BID 10/06/22 10/06/22 Unknown History aluminum-mag hydroxide-simethicone 30 ml PO Q4H PRN Indigestion 10/06/22 10/06/22 Unknown History 200 mg-200 mg-20 mg/5 mL oral susp (Ophelia-Lanta) baclofen 5 mg tablet 5 mg PO BID 10/06/22 10/06/22 Unknown History bisacodyl 10 mg rectal suppository 10 mg MS DAILY PRN Constipation 10/06/22 10/06/22 Unknown History folic acid 1 mg tablet 1 mg PO DAILY 10/06/22 10/06/22 Unknown History guaifenesin 100 mg/5 mL oral 200 mg PO Q4H PRN Cough 10/06/22 10/06/22 Unknown History liquid (Ophelia-Tussin) latanoprost 0.005 % eye drops 1 drp ophthalmic (eye) BEDTIME 10/06/22 10/06/22 Unknown History levetiracetam 1,000 mg tablet 1,000 mg PO BID 10/06/22 10/06/22 Unknown History linaclotide 290 mcg capsule 290 mcg PO DAILY 10/06/22 10/06/22 Unknown History (Linzess) magnesium hydroxide 400 mg/5 mL 30 ml PO DAILY PRN Constipation 10/06/22 10/06/22 Unknown History oral suspension (Milk of Magnesia) melatonin 3 mg tablet 6 mg PO BEDTIME 10/06/22 10/06/22 Unknown History menthol 5 % topical patch (Icy Hot 1 patch topical DAILY 10/06/22 10/06/22 Unknown History (menthol)) tamsulosin 0.4 mg capsule 0.4 mg PO DAILY 10/06/22 10/06/22 Unknown History timolol maleate 0.5 % eye drops 1 drp ophthalmic-Left DAILY 10/06/22 10/06/22 Unknown History Exam Exam Date and Time: October 06, 2022 1525 Height,Weight and Vital Signs: Height 5 ft 10 in Weight 75.75 kg Last Vital Signs Temp 97.7 F 10/06/22 07:31 Pulse 64 10/06/22 11:39 Resp 16 10/06/22 11:39 BP 131/77 10/06/22 11:39 Pulse Ox 98 10/06/22 11:39 O2 Del Method Room Air 10/06/22 11:39 Pertinent Lab Results Pertinent Lab Results: Laboratory Tests 10/05/22 10/05/22 10/05/22 21:25 21:25 21:25 WBC 5.8 RBC 3.95 L Hgb 12.5 L Hct 37.5 L MCV 94.9 MCH 31.6 MCHC 33.3 RDW 12.8 Plt Count 213 MPV 8.4 L Immature Gran % (Auto) 1.0 H Neut % (Auto) 66.7 Lymph % (Auto) 16.8 L Loup % (Auto) 9.0 Eos % (Auto) 6.2 H Baso % (Auto) 0.3 Lymph # (Auto) 1.0 L Loup # (Auto) 0.5 Eos # (Auto) 0.4 Baso # (Auto) 0.0 Abs Immat Gran (auto) 0.06 H Absolute Neuts (auto) 3.9 Absolute Nucleated RBC 0.000 Nucleated RBC % (auto) 0.0 PT 10.8 INR 0.9 APTT 36.7 H Sodium 139 Potassium 4.3 Chloride 103 Carbon Dioxide 31 H Anion Gap 9 L BUN 21 H Creatinine 0.65 Estim Creat Clear Calc 113.8 Estimated GFR > 60 Random Glucose 103 Calcium 9.2 Blood Type Antibody Screen 10/05/22 10/06/22 10/06/22 21:25 05:48 05:48 WBC 5.4 RBC 3.86 L Hgb 12.2 L Hct 36.9 L MCV 95.6 MCH 31.6 MCHC 33.1 RDW 13.0 Plt Count 208 MPV 8.5 L Immature Gran % (Auto) Neut % (Auto) Lymph % (Auto) Loup % (Auto) Eos % (Auto) Baso % (Auto) Lymph # (Auto) Loup # (Auto) Eos # (Auto) Baso # (Auto) Abs Immat Gran (auto) Absolute Neuts (auto) Absolute Nucleated RBC 0.000 Nucleated RBC % (auto) 0.0 PT INR APTT Sodium 141 Potassium 4.1 Chloride 104 Carbon Dioxide 30 H Anion Gap 11 L BUN 17 H Creatinine 0.64 Estim Creat Clear Calc 115.6 Estimated GFR > 60 Random Glucose 86 Calcium 9.2 Blood Type O Positive Antibody Screen NEGATIVE Airway Mallampati Class: I TM Dist: >3cm Neck ROM: Full Loose/Missing/Broken Teeth: Yes Heart: ok Lungs: ok, 97% Sat on room air Assessment and Plan Assessment Anesthesia Assessment: Anesthesia Plan Discussed (D/W HCP) and Chart Reviewed Final Anesthetic Review Family History of Problems with Anesthesia: No History of Problems with Anesthesia: No NPO: Yes ASA Class: IV Final Preanesthetic Review: No Changes in Pt Med Stat, Meds/Allgs Chart Reviewed, Consent Obtained/Reviewed (Consent obtained from 2? HCP) and Anes Risks/Benef Reviewed Patient Risk: High Procedure Risk: Intermediate Anesthetic Plan Anesthetic Plan: Spinal Disposition: Standard PACU
--- NOTE | 2022-10-06 15:43 | PC.NURSE ---
PT RECEIVED INTO ROOM 378 AT 1445 VIA STRETCHER FROM THE ED. HE SETTLED INTO ROOM. CALL LEDESMA IN REACH. CAMERA AND HIGH FALL MEASURES IN PLACE. POSADAS CATH DRAINING CLEAR YELLOW. SKIN IN TACT. UNABLE TO COMPLETE ADMISSION AT THIS TIME. PT TRANSPORT TO OR AT 1530.
[2022-10-06] MEDS: Lactated Ringers 1,000 ML 100 ML IVCONT (16:00)
--- NOTE | 2022-10-06 16:13 | PC.NURSE ---
Anesthesia consent initially received via telephone consent with sister Camille Guzman who states she is the [facility]. RN checked record to confirm the proxy. The transfer record from [facility] states that sister Amara Hudson is the HCP and her Keshav is the secondary HCP. Camille Guzman was contacted and is aware that she will need to contact rehab facility if she would like to be added as secondary or tertiary HCP. Plan is to contact HCP on record.
--- NOTE | 2022-10-06 16:51 | PC.NURSE ---
Both anesthesia and surgical consent have been obtained from the secondary HCP Keshav Hudson via telephone. Pt gives permission for information about surgery/condition to be shared with his sister Camille Guzman.
[2022-10-06] MEDS: ceFAZolin Sodium/Dextrose,Iso 2 GM/50 ML PIGGYBACK IV ×2 (17:00→22:58)
--- NOTE | 2022-10-06 17:09 | MHC.SHP ---
Pre-Procedural Eval Section A Date of Service: 10/06/22 The patient is an INPATIENT: Yes The History & Physical has been completed within 30 days and I have reviewed it.: Yes Section B Chief Complaint: Right inner trochanteric hip fracture Allergies: Allergies Allergy/AdvReac Type Severity Reaction Status Date / Time No Known Allergies Allergy Verified 10/05/22 19:18 Plan I have reviewed the history and physical and performed a pertinent physical examination on my patient. No changes have occurred unless specified. Assessment and plan: 1. Right inner trochanteric hip fracture Patient was seen and evaluated by me in preop hold. The right hip was marked. We obtained permission from his health proxy to proceed with an ORIF/IM nailing of his right hip fracture. Time Spent With Patient Time: Total time managing care of this patient today ____ minutes.
--- NOTE | 2022-10-06 17:11 | P.OP_ITS ---
Operative Note Operative Note Date of Service: 10/06/22 Narrative: Operative Note Narrative: Preop diagnosis: Right Inter trochanteric hip fracture Postop diagnosis: Same Procedure: Right Short femoral IM nailing Surgeon: Sera Stephenson MD Anesthesia: General Anesthesia plus spinal anesthesia Findings: Right intertrochanteric hip fracture Implants: Rosaura short Gamma 3 intramedullary femoral nail 11 mm x 180 mm, 130 degrees, set screw, 95mm lag screw,, and a 5.5 cortical distal locking screw EBL: 20.0 ml Specimen: none Drains: None Complications: None Disposition: Brought to the recovery room in stable condition Plan: Admit back to floor. Weightbear as tolerated. Follow-up in 10-14 days for wound check, suture removal pre clinic radiographs Indications: The patient is 66 years old with dementia and a right inter trochanteric femur fracture . The risks and benefits of operative treatment, including but not limited to risk of damage to blood vessels, nerves, tendons, infection, recurrence, persistent pain or numbness, incomplete resolution of preoperative symptoms, nonunion, malunion, risks of anesthesia or need for further surgery were discussed with the patient and his medical proxy on the isidro ne and they wished to proceed with surgery. Procedure: Once consent was obtained patient was brought back to the operating suite and placed in the operating fracture table in a supine position. Spinal anesthesia was performed by the anesthesia team. The well leg was positioned in some hip flexion external rotation and abduction. A gentle fracture reduction was performed applying traction and gentle internal rotation through the fracture table. Perioperative antibiotics and anesthesia was administered by the anesthesia team. The C-arm was properly positioned and used throughout the case to assess our reduction and placement of all implants. The right hip and lower extremity was prepped and draped in a standard surgical fashion. Once assured we obtained a satisfactory reduction of our IT hip fracture, a 3 cm longitudinal incision was made proximal to the greater trochanter. A guidewire was passed through the tip of the greater trochanter and into the proximal femur. Its position was assessed on orthogonal fluoroscopic images. Once satisfied, proximal aspect of the canal was prepared using the 15.5 mm conical Reamer through a soft tissue protector. The ball-tipped guidewire was then advanced through the femoral canal down to the distal femur. C-arm images were again obtained to assure proper position. We then reamed sequentially up to a 12.5 mm Reamer, opening up the proximal aspect of the femoral canal in preparation for placement of the femoral nail. An 11 mm x 180 mm, 130 degree short Gamma 3 femoral intramedullary nail was then advanced into the femoral canal. It was advanced such that the lag screw would be properly positioned within the femoral head. At this point the ball-tipped guidewire was removed. The drill guide for the lag screw was then advanced to the skin to help identify proper location of the skin incision. A 2 cm longitudinal incision was then made using a 15. Blade. A shnit was then used to dissected down to the femoral shaft. The drill guide was then advanced on to the femoral shaft. The guidewire for the gamma 3 lag screw was then advanced into the neck of the femur. Orthogonal C-arm images were then obtained as the guidewire position was adjusted to obtain a center center position in the femoral head. Once satisfied, the appropriate lag screw length was selected, the guidewire removed and the lag screw advanced into the femoral head. Screwdriver handle was position parallel to the floor to allow for proper seating of the set screw. The set screw was then placed tight and then backed out a quarter turn. The guide handle was adjusted for placement of the distal locking screw. The drill guide was advanced to the skin to allow for proper skin skin incision placement. A 2 cm longitudinal incision was made using a 15. Blade. A dalton it was used to dissect down to the femoral shaft. The drill was advanced bicortically through the femoral shaft and the screw length measured with a depth gauge. The appropriate length 5.5 mm cortical distal locking screw was then placed. Final AP and lateral fluoroscopic images were then obtained. The wounds were copiously irrigated with normal saline. The subcutaneous layer was closed with 0 Vicryl and 2 0 Vicryl suture, and the skin edges were reapproximated with skin cachorro. The wounds were infiltrated with some 1% lidocaine with epinephrine for postop pain control and a sterile dressing was applied. The patient appears to have tolerated the procedure well and with no complications. She was placed on her bed and brought to the recovery room in stable condition.
[2022-10-06] MEDS: oxyCODONE HCl ER 10 MG TAB.ER.12H PO (20:24)
[2022-10-06] MEDS: Melatonin 3 MG TABLET 6 MG PO (20:24)
[2022-10-06] MEDS: Celecoxib 200 MG CAPSULE PO (20:25)
[2022-10-07] MEDS: Lactated Ringers 1,000 ML 100 ML IVCONT ×3 (02:12→22:10)
[2022-10-07 03:07] VITALS: BP 96/56; PULSE 78; RESP 16; TEMP 37.2; O2SAT 95
[2022-10-07 07:16] LABS: MANUAL DIFF FLAG NO
[2022-10-07 07:21] LABS: Hematocrit 31.6 % (42.0-52.0); Mean Corpuscular HGB Conc 34.8 g/dl (31.0-36.0); Mean Corpuscular Volume 94.9 fL (80.0-98.0); Mean Platelet Volume 8.8 fL (9.4-12.4); Platelet Count 194 X10*3/uL (160-400); Red Blood Count 3.33 X10*6/uL (4.60-5.80); Red Cell Distribution Width 12.9 % (11.0-16.0); White Blood Count 5.4 X10*3/uL (4.8-10.8)
[2022-10-07 07:24] LABS: Basophils Percent Auto 0.4 % (0-2); Eosinophils Absolute Auto 0.2 X10*3/uL (0.0-0.4); Eosinophils Percent Auto 4.3 % (0-4); Hematocrit 31.2 % (42.0-52.0); Hemoglobin 10.5 g/dl (14.0-18.0); Imm Gran Abs Auto 0.06 X10*3/uL (0.00-0.03); Imm Gran Pct Auto 1.1 % (0.0-0.4); Lymphocytes Absolute Auto 0.5 X10*3/uL (1.2-4.9); Lymphocytes Percent Auto 9.2 % (20-40); Mean Corpuscular HGB Conc 33.7 g/dl (31.0-36.0); Mean Corpuscular Hemoglobin 31.7 pg (27.0-33.0); Mean Corpuscular Volume 94.3 fL (80.0-98.0); Mean Platelet Volume 8.8 fL (9.4-12.4); Monocytes Absolute Auto 0.5 X10*3/uL (0.1-1.2); Monocytes Percent Auto 8.5 % (2-11); Neutrophils Absolute Auto 4.1 x10*3/uL (2.0-8.3); Neutrophils Percent Auto 76.5 % (45-73); Platelet Count 196 X10*3/uL (160-400); Red Blood Count 3.31 X10*6/uL (4.60-5.80); Red Cell Distribution Width 12.7 % (11.0-16.0); White Blood Count 5.3 X10*3/uL (4.8-10.8)
[2022-10-07] MEDS: Folic Acid 1 MG TABLET PO (07:25)
[2022-10-07] MEDS: Docusate Sodium 100 MG CAPSULE PO ×2 (07:25→19:54)
[2022-10-07] MEDS: Baclofen 10 MG TABLET 5 MG PO ×2 (07:25→19:54)
[2022-10-07] MEDS: Tamsulosin HCL 0.4 MG CAPSULE PO (07:26)
[2022-10-07] MEDS: levETIRAcetam 1,000 MG TABLET 1000 MG PO ×2 (07:26→19:53)
[2022-10-07] MEDS: oxyCODONE HCl Immed Release 5 MG TABLET PO ×3 (07:26→16:13)
[2022-10-07] MEDS: Celecoxib 200 MG CAPSULE PO ×2 (07:27→19:52)
[2022-10-07] MEDS: Acetaminophen 325 MG TABLET 650 MG PO (07:27)
[2022-10-07 07:29] VITALS: BP 120/63; PULSE 75; RESP 20; TEMP 36.9; O2SAT 99
[2022-10-07 08:09] LABS: Anion Gap 10 (12-20); Blood Urea Nitrogen 16 mg/dL (9-16); Calcium 8.9 mg/dL (8.4-10.2); Carbon Dioxide 28 mmol/L (22-29); Chloride 102 mmol/L (96-108); Creatinine Clr Calc Pharmacy 125.4; Estimated Glomerular Filt Rate > 60; Glucose Fasting 73 mg/dL (60-99); Potassium 4.2 mmol/L (3.3-5.1); Sodium 136 mmol/L (135-145)
[2022-10-07 08:10] LABS: Anion Gap 11 (12-20); Blood Urea Nitrogen 15 mg/dL (9-16); Calcium 8.9 mg/dL (8.4-10.2); Carbon Dioxide 28 mmol/L (22-29); Chloride 101 mmol/L (96-108); Creatinine Clr Calc Pharmacy 125.4; Estimated Glomerular Filt Rate > 60; Glucose Random 72 mg/dL (60-115); Sodium 136 mmol/L (135-145)
--- NOTE | 2022-10-07 08:36 | P.PNOP_ITS ---
Subjective Subjective Date of Service: 10/07/22 Interval history: POD 1 s/p Right hip IMN no overnight events resting in chair, worked with PT Denies cp, sob, palpitations Physical Exam Vital Signs: Vital Signs: Last Vital Signs Temp 98.5 F 10/07/22 07:29 Pulse 75 10/07/22 07:29 Resp 20 10/07/22 07:29 BP 120/63 10/07/22 07:29 Pulse Ox 99 10/07/22 07:29 O2 Del Method Room Air 10/07/22 07:29 BMI result Body Mass Index 23.9 Const: General: cooperative, healthy appearing and no acute distress Resp: Effort & Inspection: normal respiratory effort and able to speak in complete sentences Cardio: Rate: regular rate Peripheral pulses: Peripheral pulses 2+ throughout GI: Palpation (GI): Soft to palpation Skin: General skin exam: no rashes or lesions noted Extrem: Other: incision clean dry and intact. Ceres intact. No erythema or effusion. Calf supple nontender. Neurovascularly intact. Procedures Date of Service Date of Service: 10/07/22 Progress Note: A&P Assessment and plan (1) Fracture of hip: Status: Acute Assessment and Plan: * Continue pain mgmnt * Begin lovenox for dvt ppx * begin PT / OT for right hip imn -wbat * Dispo planning-Pending PT eval, pain mgmnt Time Spent With Patient Time: Total time managing care of this patient today ____ minutes. Quality Stroke Does the patient have a stroke diagnosis?: No VTE Prior VTE?: No VTE Risk Level:: Medical - moderate - high VTE Device Contraindication: N/A - Device Ordered VTE Drug Contraindication: Treatment Not Indicated
[2022-10-07] MEDS: oxyCODONE HCl ER 10 MG TAB.ER.12H PO ×2 (09:02→19:54)
--- NOTE | 2022-10-07 10:18 | HO.POSTANES ---
Post Anesthesia Evaluation Post Anesthesia Evaluation Vital Signs: Vital Signs Temp Pulse Resp BP Pulse Ox O2 Del Method 10/07/22 07:29 98.5 F 75 20 120/63 99 Room Air 10/07/22 03:07 98.9 F 78 16 96/56 L 95 Room Air 10/06/22 23:31 98 F 75 16 96/55 L 98 Room Air Anesthesia: Spinal Mental Status: Awake Pain Control: Satisfactory Nausea/Vomiting: None Hydration: Adequate Anesthesia-Related Issues: No Anes. Related Issues
[2022-10-07] MEDS: Cyclobenzaprine HCl 5 MG TABLET PO (12:12)
--- NOTE | 2022-10-07 13:13 | MHC.CM.PN ---
met with pt and family pt from [facility] where he is a [facility] resident pt will return when dcd
[2022-10-07 15:33] VITALS: BP 127/59; PULSE 77; RESP 20; TEMP 36.6; O2SAT 96
--- NOTE | 2022-10-07 15:52 | PC.NURSE ---
thompson cath removed at 0915
[2022-10-07] MEDS: 0.9 % Sodium Chloride Flush 3 ML SYRINGE IVFLUSH (16:13)
[2022-10-07] MEDS: Enoxaparin Sodium 40 MG/0.4 ML SYRINGE SUBCUT (16:13)
[2022-10-07 19:16] VITALS: BP 150/70; PULSE 75; RESP 18; TEMP 37; O2SAT 97
[2022-10-07] MEDS: Melatonin 3 MG TABLET 6 MG PO (19:53)
[2022-10-07] MEDS: Latanoprost 0.005 % Ophth Sol 2.5 ML DROPS 1 DROP EYE-BOTH (22:10)
[2022-10-08] MEDS: HYDROmorphone HCl 0.5 MG/0.5 ML SYRINGE 0.25 MG IVPUSH (00:06)
--- NOTE | 2022-10-08 01:38 | PC.NURSE ---
pt was touching the incision site, dressing was falling off half of them old blood stain on the dressing, clean with iodine swabstick and new sterile dressing applied with big tegaderm. will continuously monitor.
[2022-10-08 03:46] VITALS: BP 99/55; PULSE 67; RESP 18; TEMP 36.8; O2SAT 98
[2022-10-08] MEDS: oxyCODONE HCl Immed Release 5 MG TABLET PO ×2 (04:15→16:10)
[2022-10-08 06:10] LABS: MANUAL DIFF FLAG NO
[2022-10-08 07:06] LABS: Basophils Percent Auto 0.5 % (0-2); Eosinophils Absolute Auto 0.3 X10*3/uL (0.0-0.4); Eosinophils Percent Auto 6.9 % (0-4); Hematocrit 28.3 % (42.0-52.0); Hemoglobin 9.8 g/dl (14.0-18.0); Imm Gran Abs Auto 0.03 X10*3/uL (0.00-0.03); Imm Gran Pct Auto 0.7 % (0.0-0.4); Lymphocytes Absolute Auto 0.6 X10*3/uL (1.2-4.9); Lymphocytes Percent Auto 15.2 % (20-40); Mean Corpuscular HGB Conc 34.6 g/dl (31.0-36.0); Mean Corpuscular Hemoglobin 32.3 pg (27.0-33.0); Mean Corpuscular Volume 93.4 fL (80.0-98.0); Mean Platelet Volume 8.9 fL (9.4-12.4); Monocytes Absolute Auto 0.4 X10*3/uL (0.1-1.2); Monocytes Percent Auto 8.3 % (2-11); Neutrophils Absolute Auto 2.9 x10*3/uL (2.0-8.3); Neutrophils Percent Auto 68.4 % (45-73); Platelet Count 177 X10*3/uL (160-400); Red Blood Count 3.03 X10*6/uL (4.60-5.80); Red Cell Distribution Width 13.1 % (11.0-16.0); White Blood Count 4.2 X10*3/uL (4.8-10.8)
[2022-10-08 08:00] VITALS: BP 112/56; PULSE 80; RESP 18; TEMP 35.7; O2SAT 96
--- NOTE | 2022-10-08 08:48 | P.CDIM_ITS ---
PROVIDER RESPONSE TEXT: To clarify, the appropriate diagnosis supported by the clinical indicators: Other Anemia (please specify): Dilutional QUERY TEXT: PHYSICIAN'S DOCUMENTATION REQUEST Date of Query: 10/08/2022 08:31 AM EDT Patient Name: Nabeel Mac Admit Date: 10/06/2022 Dear Walker Palm, A review of the medical record indicates additional documentation may be needed. Please review below and update the documentation accordingly. Clinical Indicators: The following diagnoses or signs and symptoms were noted in the patient record: H&H on 10/05/22: 12.5/37.5 H&H on 10/08/22: 9.8/28.3 s/p 10/06/22 right short femoral IM nailing of right intertrochanter fracture Based on the above, could you clarify the appropriate diagnosis, if significant, that supports the ab ove abnormalities and additional evaluation, monitoring, and/or treatment rendered: Acute blood loss anemia Other Anemia (please specify) Clinically unable to determine Other (explain) Clinically unable to determine (explain) Thank you, Zuleyka Amado RN Use of terms such as suspected, likely, concern for, or probable (associated with a specific diagnosi s that is being evaluated, monitored, or treated as if it exists) are acceptable and can be coded in the inpatient se tting, when documented at the time of discharge. Please use your independent medical judgment in providing your response. THIS QUERY IS PART OF THE PERMANENT MEDICAL RECORD
--- NOTE | 2022-10-08 08:50 | P.PNOP_ITS ---
Subjective Subjective Date of Service: 10/08/22 Interval history: POD 2 s/p Right hip IMN no overnight events Resting in recliner Denies cp, sob, palpitations Physical Exam Vital Signs: Vital Signs: Last Vital Signs Temp 96.2 F L 10/08/22 08:00 Pulse 80 10/08/22 08:00 Resp 18 10/08/22 08:00 BP 112/56 L 10/08/22 08:00 Pulse Ox 96 10/08/22 08:00 O2 Del Method Room Air 10/08/22 08:00 BMI result Body Mass Index 23.9 Const: General: cooperative, healthy appearing and no acute distress Resp: Effort & Inspection: normal respiratory effort and able to speak in complete sentences Cardio: Rate: regular rate Peripheral pulses: Peripheral pulses 2+ throughout GI: Palpation (GI): Soft to palpation Skin: General skin exam: no rashes or lesions noted Extrem: Other: Dressings are c/d/i. No erythema or effusion. Calf supple nontender. Able to dorsi/plantarflex. Neurovascularly intact. Procedures Date of Service Date of Service: 10/08/22 Progress Note: A&P Assessment and plan (1) Fracture of hip: Status: Acute Assessment and Plan: * Continue pain mgmnt * Continue lovenox for dvt ppx * Continue PT / OT for right hip imn -wbat * Dispo planning- Cleared for d/c from ortho standpoint. Should followup in office in 2 weeks outpatient. Time Spent With Patient Time: Total time managing care of this patient today ____ minutes. Quality Stroke Does the patient have a stroke diagnosis?: No VTE Prior VTE?: No VTE Risk Level:: Medical - moderate - high VTE Device Contraindication: N/A - Device Ordered VTE Drug Contraindication: Treatment Not Indicated
[2022-10-08] MEDS: oxyCODONE HCl ER 10 MG TAB.ER.12H PO (09:19)
[2022-10-08] MEDS: Celecoxib 200 MG CAPSULE PO (09:20)
[2022-10-08] MEDS: levETIRAcetam 1,000 MG TABLET 1000 MG PO (09:20)
[2022-10-08] MEDS: Folic Acid 1 MG TABLET PO (09:21)
[2022-10-08] MEDS: Tamsulosin HCL 0.4 MG CAPSULE PO (09:22)
[2022-10-08] MEDS: Baclofen 10 MG TABLET 5 MG PO (09:38)
--- NOTE | 2022-10-08 11:27 | P.DS_ITS ---
DS: Providers Provider Date of Service: 10/08/22 Date of admission: 10/05/22 22:47 Primary care physician: Nonstaff Physician Consults: 10/05/22 22:51 Consult to Orthopedics Routine Consulting Provider: [facility] Reason for consultation: R hip fracture Has provider been notified: Yes DS: Diagnosis Discharge Diagnosis (1) Fracture of hip: Status: Acute DS: Summary Hospital Course Hospital Course: Admission note HPI This is a 66-year-old male with a past medical history as noted below who presents to the emergency department with right-sided hip pain ongoing for the past 2 days.? Unfortunately, patient is a limited historian secondary to dementia however he denies recent falls/trauma.? Patient did report to ED provider that he ?might have fallen a few months ago?.? Unfortunately, I am unable to reach patient's mother whom he lives with at this time.? Currently, denies headache, nausea, vomiting, numbness, tingling or weakness trauma extremities. Hip and pelvis x-ray:Nondisplaced complex intertrochanteric fracture right hip. Total left hip prosthesis is in place with no loosening. There is no dislocation. Official read of CT pelvis pending at time of this dictation.? Initial laboratory results:? HGB 12 0.5/37.5, platelets 213, PTT/INR 10.8/0.9, APTT 36.7, BUN/creatinine 21/0.65, carbon dioxide 31, anion gap 9.? In the emergency department the above was performed and patient received 5 mg p.o. oxycodone.? The decision was made to admit patient for medical management. Hospital course Right hip fracture on presentation after a mechanical fall. Hip and pelvis x-r ay:Nondisplaced complex intertrochanteric fracture right hip. had IMN nailing of his right hip fracture. started physical therapy with good tolerance. started on Lovenox for DVT PPx. plan to DC to facility to continue rehab. Hemoglobin level dropped a little after surgery, likely 2/2 surgical loss and dilution from IVF with no bleeding reported and good looking wound with no oozing. Continue Lovenox for dvt ppx x4 weeks Keep dressing clean,dry and intact-no showering or tub baths Follow up with Orthopedics in 2 weeks Continue physical therapy OXycodone for pain Colace for constipation Time Spent with Patient Time attestation: Total time managing care of this patient today ____ minutes. Discharge coordination time: Greater than 30 minutes Quality: Safe Use of Opioids Does Pt have an Active Cancer Diagnosis on the Problem List?: No Quality: Stroke Does the patient have a stroke diagnosis?: No Physical Exam Vital Signs: Vital Signs: Last Vital Signs Temp 96.2 F L 10/08/22 08:00 Pulse 80 10/08/22 08:00 Resp 18 10/08/22 08:00 BP 112/56 L 10/08/22 08:00 Pulse Ox 96 10/08/22 08:00 O2 Del Method Room Air 10/08/22 08:00 BMI result Body Mass Index 23.9 Const: Other: General: no acute distress, interactive Skin: Warm and well perfused Cardiology: Regular rate and rhythm, no murmurs,, no JVD or carotid bruits appreciated Respiratory: Lungs CTAB, no inspiratory wheezing, rales or rhonchi, Abdomen: Soft, non distended, nontender, bowel sounds active Musculoskeletal: Right hip surigcal site clean with no bleeding. Extremity: No pitting edemano redness, tenderness or swelling noted to bilateral lower extremities Neuro: Alert and oriented to person and situation, limited historian secondary to dementia Psych: Calm, follows commands, no agitation restlessness noted DS: Data Data Completed and Pending Labs on day of discharge: Laboratory Results - last 24 hr 10/08/22 05:52 WBC 4.2 L RBC 3.03 L Hgb 9.8 L Hct 28.3 L MCV 93.4 MCH 32.3 MCHC 34.6 RDW 13.1 Plt Count 177 MPV 8.9 L Immature Gran % (Auto) 0.7 H Neut % (Auto) 68.4 Lymph % (Auto) 15.2 L [place] % (Auto) 8.3 Eos % (Auto) 6.9 H Baso % (Auto) 0.5 Lymph # (Auto) 0.6 L [place] # (Auto) 0.4 Eos # (Auto) 0.3 Baso # (Auto) 0.0 Abs Immat Gran (auto) 0.03 Absolute Neuts (auto) 2.9 Absolute Nucleated RBC 0.000 Nucleated RBC % (auto) 0.0 Imaging XR : Radiologist's impression: ITS Impressions Hip/Pelvis X-Ray 10/05/22 19:47 IMPRESSION: Nondisplaced complex intertrochanteric fracture right hip. Total left hip prosthesis is in place with no loosening. There is no dislocation. Pelvis CT 10/05/22 21:46 IMPRESSION: 1. Comminuted right hip intertrochanteric fracture without displacement or dislocation. 2. Total left hip prosthesis in satisfactory alignment.. 3. Diffuse osteopenia.. Guidance Fluoroscopy 10/06/22 19:01 IMPRESSION: Intraoperative fluoroscopy for orthopedic procedure. Discharge Plan Discharge Anticipated Discharge Date/Time: 10/08/22 11:23 Patient Disposition: [facility] Discharge Diagnosis: Right hip fracture Referrals: Physician,Nonstaff [Primary Care Provider] - 1 Week Lissa Tenorio PA-C [Physician Carpet Installer Helper] - 2 Weeks (10/21/22 10:45 [facility] Lissa Tenorio PA-C) Discharge Medications: New docusate sodium 100 mg Capsule 100 mg PO BID Qty: 60 0RF oxycodone 5 mg Tablet 5 mg PO Q4H PRN (Reason: Pain, Moderate (Pain Scale 4-6) Qty: 24 0RF Rx Instructions: Partial Fill upon patient request. enoxaparin [Lovenox] 40 mg/0.4 mL syringe 40 mg subcut DAILY 28 Days Qty: 11.2 0RF Continued latanoprost 0.005 % drops 1 drp ophthalmic (eye) BEDTIME tamsulosin 0.4 mg capsule 0.4 mg PO DAILY timolol maleate 0.5 % drops 1 drp ophthalmic-Left DAILY levetiracetam 1,000 mg tablet 1,000 mg PO BID Linzess 290 mcg capsule 290 mcg PO DAILY baclofen 5 mg tablet 5 mg PO BID acetaminophen 325 mg Tablet 650 mg PO Q4H PRN (Reason: Fever) melatonin 3 mg Tablet 6 mg PO BEDTIME acetaminophen 500 mg Tablet 1,000 mg PO BID Rx Instructions: back pain guaifenesin [Ophelia-Tussin] 100 mg/5 mL Liquid 200 mg PO Q4H PRN (Reason: Cough) magnesium hydroxide [Milk of Magnesia] 400 mg/5 mL Suspension 30 ml PO DAILY PRN (Reason: Constipation) bisacodyl 10 mg Suppository 10 mg ME DAILY PRN (Reason: Constipation) Rx Instructions: if no BM 8 hours after milk of magnesia folic acid 1 mg Tablet 1 mg PO DAILY alum-mag hydroxide-simeth [Ophelia-Lanta] 200-200-20 mg/5 mL Suspension 30 ml PO Q4H PRN (Reason: Indigestion) Icy Hot (menthol) 5 % Adhesive Patch,Medicated 1 patch TOPICAL DAILY Rx Instructions: Apply to right hip in AM, remove in PM Discharge Orders: Discharge Order (Routine); Ordered 10/08/22 Ordered By: Walker Palm Diet: Advance to usual diet Activity on Discharge: As tolerated Stand Alone Forms: Patient Portal Discharge page Care Plan Goals: Read below Health Concerns: Read below Plan of Treatment: Gait training, strengthening, ADLs Continue Lovenox for dvt ppx x4 weeks Keep dressing clean,dry and intact-no showering or tub baths Follow up with Orthopedics in 2 weeks Assessment: Continue physical therapy OXycodone for pain Colace for constipation
--- NOTE | 2022-10-08 11:45 | HO.PM.IMPN ---
Subjective Subjective Date of Service: 10/07/22 Interval History: Seen and evaluated reports pain under fair control POD 1 drop in Hb No fever or chills No other overnight events Review of Systems Review of Systems: Yes all other systems are reviewed and are negative Physical Exam Vital Signs: Vital Signs: Last Vital Signs Temp 96.2 F L 10/08/22 08:00 Pulse 80 10/08/22 08:00 Resp 18 10/08/22 08:00 BP 112/56 L 10/08/22 08:00 Pulse Ox 96 10/08/22 08:00 O2 Del Method Room Air 10/08/22 08:00 BMI result Body Mass Index 23.9 Const: Other: General: no acute distress, interactive Skin: Warm and well perfused Cardiology: Regular rate and rhythm, no murmurs,, no JVD or carotid bruits appreciated Respiratory: Lungs CTAB, no inspiratory wheezing, rales or rhonchi, Abdomen: Soft, non distended, nontender, bowel sounds active Musculoskeletal: Right hip surigcal site clean with no bleeding. Extremity: No pitting edemano redness, tenderness or swelling noted to bilateral lower extremities Neuro: Alert and oriented to person and situation, limited historian secondary to dementia Psych: Calm, follows commands, no agitation restlessness noted Objective Data Active Medications Acetaminophen (Acetaminophen 325 Mg Tablet) 650 mg PO Q6H PRN PRN Reason: Pain, Mild (Pain Scale 1-3) Last Admin: 10/07/22 07:27 Dose: 650 mg Documented By: LUAN Al Hydroxide/Mg Hydroxide (Magnesium Hydrox/Alum Hydrox 30 Ml Oral.Susp) 30 ml PO Q4H PRN PRN Reason: Indigestion Baclofen (Baclofen 10 Mg Tablet) 5 mg PO BID [facility] Last Admin: 10/08/22 09:38 Dose: 5 mg Documented By: BRADY Bisacodyl (Bisacodyl 10 Mg Supp.Rect) 10 mg LA DAILY PRN PRN Reason: Constipation Celecoxib (Celecoxib 200 Mg Capsule) 200 mg PO BID [facility] Last Admin: 10/08/22 09:20 Dose: 200 mg Documented By: BRADY Docusate Sodium (Docusate Sodium 100 Mg Capsule) 100 mg PO BID [facility] Last Admin: 10/08/22 09:25 Dose: Not Given Documented By: BRADY Non-Admin Reason: Patient Refused Enoxaparin Sodium (Enoxaparin Sodium 40 Mg/0.4 Ml Syringe) 40 mg SUBCUT Q24H [facility] Last Admin: 10/07/22 16:13 Dose: 40 mg Documented By: ONELIA Fentanyl (Fentanyl Citrate/Pf 100 Mcg/2 Ml Vial) 50 mcg IVPUSH Q5M PRN; Protocol PRN Reason: Pain, Severe (Pain Scale 7-10) Folic Acid (Folic Acid 1 Mg Tablet) 1 mg PO DAILY [facility] Last Admin: 10/08/22 09:21 Dose: 1 mg Documented By: BRADY Guaifenesin (Guaifenesin 100 Mg/5 Ml Liquid) 10 ml PO Q4H PRN PRN Reason: Cough Hydromorphone HCl (Hydromorphone Hcl 0.5 Mg/0.5 Ml Syringe) 0.25 mg IVPUSH Q4H PRN; Protocol PRN Reason: Pain, Severe (Pain Scale 7-10) Last Admin: 10/08/22 00:06 Dose: 0.25 mg Documented By: YAA Hydromorphone HCl (Hydromorphone Hcl 0.5 Mg/0.5 Ml Syringe) 0.25 mg IVPUSH Q5M PRN; Protocol PRN Reason: Pain, Severe (Pain Scale 7-10) Latanoprost (Latanoprost 0.005 % Ophth Elizabeth 2.5 Ml Drops) 1 drop EYE-BOTH BEDTIME [facility] Last Admin: 10/07/22 22:10 Dose: 1 drop Documented By: YAA Levetiracetam (Levetiracetam 1,000 Mg Tablet) 1,000 mg PO BID [facility] Last Admin: 10/08/22 09:20 Dose: 1,000 mg Documented By: BRADY Magnesium Hydroxide (Milk Of Magnesia 30 Ml Oral.Susp) 30 ml PO DAILY PRN PRN Reason: Constipation Melatonin (Melatonin 3 Mg Tablet) 6 mg PO BEDTIME [facility] Last Admin: 10/07/22 19:53 Dose: 6 mg Documented By: YAA Non-Formulary Medication (Linaclotide [Linzess]) 290 mcg PO DAILY [facility] Ondansetron HCl (Ondansetron Hcl 4 Mg/2 Ml Vial) 4 mg IVPUSH ONCE PRN PRN Reason: Nausea and Vomiting Oxycodone HCl (Oxycodone Hcl Immed Release 5 Mg Tablet) 5 mg PO Q4H PRN PRN Reason: Pain, Moderate (Pain Scale 4-6 Last Admin: 10/08/22 04:15 Dose: 5 mg Documented By: YAA Oxycodone HCl (Oxycodone Hcl Er 10 Mg Tab.Er.12h) 10 mg PO BID [facility] Last Admin: 10/08/22 09:19 Dose: 10 mg Documented By: BRADY Sodium Chloride (0.9 % Sodium Chloride Flush 3 Ml Syringe) 3 ml IVFLUSH [facility] Last Admin: 10/08/22 07:58 Dose: Not Given Documented By: CIELO Non-Admin Reason: IV Running Sodium Chloride (0.9 % Sodium Chloride Flush 3 Ml Syringe) 3 ml IVFLUSH [facility] Last Admin: 10/08/22 07:59 Dose: Not Given Documented By: CIELO Non-Admin Reason: IV Running Tamsulosin HCl (Tamsulosin Hcl 0.4 Mg Capsule) 0.4 mg PO DAILY [facility] Last Admin: 10/08/22 09:22 Dose: 0.4 mg Documented By: BRADY Timolol Maleate (Timolol Maleate 0.5 % Oph Elizabeth 5 Ml Drbtl) 1 drop EYE-LEFT DAILY [facility] Last Admin: 10/08/22 09:31 Dose: Not Given Documented By: BRADY Non-Admin Reason: Med Not Available Labs 10/08/22 05:52 10/07/22 05:49 Labs: Laboratory Results - last 24 hr 10/08/22 05:52 MCV 93.4 MCH 32.3 MCHC 34.6 RDW 13.1 Plt Count 177 MPV 8.9 L Immature Gran % (Auto) 0.7 H Neut % (Auto) 68.4 Lymph % (Auto) 15.2 L Cross % (Auto) 8.3 Eos % (Auto) 6.9 H Baso % (Auto) 0.5 Lymph # (Auto) 0.6 L Cross # (Auto) 0.4 Eos # (Auto) 0.3 Baso # (Auto) 0.0 Abs Immat Gran (auto) 0.03 Absolute Neuts (auto) 2.9 Absolute Nucleated RBC 0.000 Nucleated RBC % (auto) 0.0 Assessment and Plan (1) Fracture of hip: Status: Acute Plan This is a [age]-year-old male with a past medical history of dementia will be admitted to the hospital due to right hip fracture. Right hip fracture Hip and pelvis x-ray:Nondisplaced complex intertrochanteric fracture right hip POD 1 pain meds Orthopedic following start PT and Lovenox Chronic back pain patient wears a brace.Denies change in pain level. Fall precautions in place. Dementia frequent reorientation. Fall /aspiration precautions. Hx Seizure disorder Continue Keppra seizure precautions DVT prophylaxis Lovenox full code. HCP/person to contact is patient's mother Christal Mac, Will need overnight hospital stay for hip surgery and safe discharge plan Time Spent With Patient Time: Total time managing care of this patient today ____ minutes. Quality Stroke Does the patient have a stroke diagnosis?: No VTE Prior VTE?: No VTE Risk Level:: Medical - moderate - high VTE Device Contraindication: N/A - Device Ordered VTE Drug Contraindication: Treatment Not Indicated
--- NOTE | 2022-10-08 12:04 | MHC.CM.PN ---
PATIENT AND FAMILY (IN ROOM) AGREEABLE TO [facility]S [facility] RE[facility] FOR 1500 RN AND UNIT AWARE OF PLAN. IMM 10/07 PREVIOUSLY COMPLETED
[2022-10-08 14:16] LABS: Influenza A PCR NEGATIVE (Negative); Influenza B PCR NEGATIVE (Negative); Resp Syncy Virus RNA Qual PCR NEGATIVE (Negative); SARS COV2 PCR INHOUSE NEGATIVE (Negative)
== END 2022-10-08 17:12 | disposition skilled nursing facility (03) | DRG 482 ==
LOC: HO.ED 21:28 → HO.EDOVER 23:08 → HO.S3 10-06 12:52
PROVIDERS: Orthopaedic Surgery; Physician Assistant; Admitting Provider Registered Nurse; Emergency Provider Emergency Medicine; PCP Internal Medicine; Visit Provider Student in an Organized Health Care Education/Training Program
DX: S72.144A Nondisplaced intertrochanteric fracture of right femur, initial encounter for closed fracture (principal); W19.XXXA Unspecified fall, initial encounter; D64.9 Anemia, unspecified; F03.90 Unspecified dementia, unspecified severity, without behavioral disturbance, psychotic disturbance, mood disturbance, and anxiety; G40.909 Epilepsy, unspecified, not intractable, without status epilepticus; G89.29 Other chronic pain; M54.9 Dorsalgia, unspecified; Z20.822 Contact with and (suspected) exposure to COVID-19; Z79.899 Other long term (current) drug therapy
CPT/HCPCS: 0241U; 36415; 72192; 73502; 80048; 85025; 85027; 85610; 85730; 86850; 86900; 86901; 93005; 97116; 97162; 97166; 97530; 99285; C1713; C1769; J0690; J1170; J1650; J3010

== ENCOUNTER 2022-10-21 06:25 | Outpatient (REF) | payer OTHER, MEDICARE, BC, SELFPAY ==
--- NOTE | ~2022-10-21 | XR_ITS ---
EXAMINATION: XR HIP, RIGHT CLINICAL INFORMATION: Right hip pain. COMPARISON: None available. TECHNIQUE: Two views of the right hip. AP pelvis one view. FINDINGS: AP PELVIS: There is a total left hip prosthesis and right hip intramedullary femoral radha and nail in place. There is no recurrent new acute fracture seen. There is no periprosthetic loosening or hardware malfunction suspected. Mild osteopenia is noted. XR/XR hip RT w PEL1V IMPRESSION: Total left hip prosthesis and a right hip nail and intramedullary femoral radha appear stable. There is no periprosthetic loosening. No new acute fracture seen.
== END 2022-10-21 06:26 | disposition home or self-care (01) ==
LOC: HO.HOSX 06:25
PROVIDERS: Visit Provider Physician Assistant
DX: S72.001D Fracture of unspecified part of neck of right femur, subsequent encounter for closed fracture with routine healing (principal)
CPT/HCPCS: 73502; 99212

== ENCOUNTER 2022-11-19 06:13 | Outpatient (REF) | payer MEDICARE, BC, SELFPAY ==
--- NOTE | ~2022-11-19 | XR_ITS ---
EXAMINATION: XR HIP, RIGHT CLINICAL INFORMATION: Pain COMPARISON: Previous x-ray most recent October 2022 TECHNIQUE: Two views of the right hip and one view of the pelvis. FINDINGS: ORIF of right femoral intertrochanteric fracture with intramedullary radha, proximal compression/lag screw and distal cortical screw. Orthopedic hardware appears unchanged. Intertrochanteric fracture difficult to visualize due to overlapping skinfold. Mild arthritis of the right hip joint. Left hip replacement replacement. Degenerative changes at the sacroiliac joints. Normal soft tissues. XR/XR hip RT w PEL1V IMPRESSION: Stable appearance post ORIF of right femoral intertrochanteric fracture.
== END 2022-11-19 06:14 | disposition home or self-care (01) ==
LOC: HO.HOSX 06:13
PROVIDERS: Visit Provider Physician Assistant
DX: S72.001D Fracture of unspecified part of neck of right femur, subsequent encounter for closed fracture with routine healing (principal); X58.XXXD Exposure to other specified factors, subsequent encounter
CPT/HCPCS: 73502; 99212

== ENCOUNTER 2025-04-15 13:26 | Inpatient (IN) | payer MEDICARE, BC, SELFPAY ==
--- OUTSIDE RECORDS SUMMARY | 2011-06-16 01:00 | XMS_ITS | Encounter Summary ---
Author Organization [facility] Address [address] [facility] [address] [place] [address] Phone Care Team Providers Care Business Analytics Director Name Role Phone Unavailable Primary Care Provider Unavailabl e Reason for Visit * MRI/CAT Scan - Closed Specialty Diagnoses / Procedures Referred By Allyson mackenzie Referred To Contact Procedures CT Head Outside (No Interpretation) Chanda Alejandre MD, MPH [address] [place] [address] Phone: tel: fax: mailto:[email or web address] Referral ID Status Reason Start Date Expiration Date Visits Re quested Visits Authorized [id number] Closed 02/02/2017 02/02/2018 1 1 Encounter Details Date Type Department Care Team (Late st Contact Info) Description 06/16/2011 Hospital Encounter [facility] General Imaging [address] [place] [address] Chanda Alejandre MD, MPH [address] [place] [address] [email or web address] Social History Tobacco Use Types Packs/Day Years Used Date Smoking Tobacco: Never Smokeless Tobacco: Never Alcohol Use Standard Drinks/Week Comments No 0 (1 standard drink = 0.6 oz pur e alcohol) Education Answer Date Recorded Are you interested in more education? Not on antolin e 10/16/2022 Are you concerned about learning? Not on file 10/16/2022 No 10/16/2022 No 10/16/2022 Digital Access Answer Date Recorded No 11/16/2022 No 11/16/2022 No 11/16/2022 Reliable internet access at home? Not on file 11/16/2022 Device with a working camera? Not on file Sex and Gender Information Value Date Recorded Sex Assigned at Not on file Legal Sex Male 10:53 AM EDT Gender Identity Not on file Sexual Orientation Not on file documented as of this encounter Plan of Treatment Not on file documented as of this encounter Procedures Procedure Name Priority Date/Time Associated Diagnosis Comments CT HEAD OUTSIDE (NO INTERPRETATION) Routine 06/16/2011 12:00 AM EST documented in this encounter Results * CT Head Outside (No Interpretation) (06/16/2011 12:00 AM EST) Narrative [facility] [place] [place] - 02/02/2017 9:31 AM EDT This study is for PACS storage only and not for interpretation. us Chanda Alejandre MD, MPH IMG OUTSIDE IMAGING W/ OUT INTERPRETATION Final Result [facility] documented in this encounter Visit Diagnoses Not on filedocumented in this encounter Additional Source Comments The information contained in this document represents components of the legal health record. It is not the complete legal health record.[facility]
--- OUTSIDE RECORDS SUMMARY | 2011-06-16 01:15 | XMS_ITS | Encounter Summary ---
Author Organization [facility] Address [address] [place] [address] Phone Care Team Providers Care Channel Marketing Coordinator Name Role Phone Unavailable Primary Care Provider Unavailabl e Encounter Details Date Type Department Care Team ([facility] st Contact Info) Description 06/16/2011 12:15 AM EST Hospital Encounter [facility] General Imaging [address] [place] [address] Chanda Alejandre MD, MPH [address] [place] [address] [email or web address] Social History Tobacco Use Types Packs/Day [...] Procedure Name Priority Date/Time Associated Diagnosis Comments XR CHEST OUTSIDE (NO INTERPRETATION) Routine 06/16/2011 12:15 AM EST documented in this encounter Results * XR Chest Outside (No Interpretation) (06/16/2011 12:15 AM EST) Narrative [facility]G INTERFACES - 02/02/2017 9:31 AM EDT This study is for PACS storage only and not for interpretation. us Chanda Alejandre MD, MPH IMG OUTSIDE IMAGING W/ OUT INTERPRETATION Final Result [facility] IMG INTERFACES documented in this encounter Visit Diagnoses Not on filedocumented in this encounter Additional Source Comments The information contained in this document represents components of the legal health record. It is not the complete legal health record.[facility]
--- OUTSIDE RECORDS SUMMARY | 2011-06-17 01:00 | XMS_ITS | Encounter Summary ---
Author Organization [facility] Address [address] [facility] [address] [place] [address] Phone Care Team Providers Care Para Machine Operator Name Role Phone Unavailable Primary Care Provider Unavailabl e Reason for Visit * MRI/CAT Scan - Closed Specialty Diagnoses / Procedures Referred By Allyson mackenzie Referred To Contact Procedures CT Head Outside (No Interpretation) Chanda Alejandre MD, MPH [address] [place] [address] Phone: tel: fax: mailto:[email or web address] Referral ID Status Reason Start Date Expiration Date Visits Re quested Visits Authorized [id number] Closed 02/02/2017 02/02/2018 1 1 Encounter Details Date Type Department Care Team (Late st Contact Info) Description 06/17/2011 Hospital Encounter [facility] General Imaging [address] [place] [address] Chanda Alejandre MD, MPH [address] [place] [address] [email or web address] Social History Tobacco Use Types Packs/Day Years [...] Comments CT HEAD OUTSIDE (NO INTERPRETATION) Routine 06/17/2011 12:00 AM EST documented in this encounter Results * CT Head Outside (No Interpretation) (06/17/2011 12:00 AM EST) Narrative [facility] [place] [place] - 02/02/2017 9:31 AM EDT This study is for PACS storage only and not for interpretation. us Chanda Alejandre MD, MPH IMG OUTSIDE IMAGING W/ OUT INTERPRETATION Final Result [facility] [place] documented in this encounter Visit Diagnoses Not on filedocumented in this encounter Additional Source Comments The information contained in this document represents components of the legal health record. It is not the complete legal health record.[facility]
--- OUTSIDE RECORDS SUMMARY | 2011-06-19 01:00 | XMS_ITS | Encounter Summary ---
Author Organization [facility] Address [address] [facility] [address] [place] [address] Phone Care Team Providers Care Software Configuration Manager Name Role Phone Unavailable Primary Care Provider Unavailabl e Reason for Visit * MRI/CAT Scan - Closed Specialty Diagnoses / Procedures Referred By Allyson mackenzie Referred To Contact Procedures CT Head Outside (No Interpretation) Chanda Alejandre MD, MPH [address] [place] [address] Phone: tel: fax: mailto:[email or web address] Referral ID Status Reason Start Date Expiration Date Visits Re quested Visits Authorized [id number] Closed 02/02/2017 02/02/2018 1 1 Encounter Details Date Type Department Care Team (Late st Contact Info) Description 06/19/2011 Hospital Encounter [facility] General Imaging [address] [place] [address] Chanda Alejandre MD, MPH [address] [place] [address] [email or web address] Social History Tobacco Use Types Packs/Day [...] Comments CT HEAD OUTSIDE (NO INTERPRETATION) Routine 06/19/2011 12:00 AM EST documented in this encounter Results * CT Head Outside (No Interpretation) (06/19/2011 12:00 AM EST) Narrative [facility]G INTERFACES - 02/02/2017 9:33 AM EDT This study is for PACS storage only and not for interpretation. us Chanda Alejandre MD, MPH IMG OUTSIDE IMAGING W/ OUT INTERPRETATION Final Result [facility] INTERFACES documented in this encounter Visit Diagnoses Not on filedocumented in this encounter Additional Source Comments The information contained in this document represents components of the legal health record. It is not the complete legal health record.[facility]
--- OUTSIDE RECORDS SUMMARY | 2011-06-30 01:00 | XMS_ITS | Encounter Summary ---
Author Organization [facility] Address [address] [facility] [address] [place] [address] Phone Care Team Providers Care Solution Analyst Name Role Phone Unavailable Primary Care Provider Unavailabl e Reason for Visit * MRI/CAT Scan - Closed Specialty Diagnoses / Procedures Referred By Allyson mackenzie Referred To Contact Procedures CT Chest Outside (No Interpretation) Chanda Alejandre MD, MPH [address] [place] [address] Phone: tel: fax: mailto:[email or web address] Referral ID Status Reason Start Date Expiration Date Visits Re quested Visits Authorized [id number] Closed 02/02/2017 02/02/2018 1 1 Encounter Details Date Type Department Care Team (Late st Contact Info) Description 06/30/2011 Hospital Encounter [facility] General Imaging [address] [place] [address] Chanda Alejandre MD, MPH [address] [place] [address] [email or web address] Social History Tobacco Use Types [...] Name Priority Date/Time Associated Diagnosis Comments CT CHEST OUTSIDE (NO INTERPRETATION) Routine 06/30/2011 12:00 AM EST documented in this encounter Results * CT Chest Outside (No Interpretation) (06/30/2011 12:00 AM EST) Narrative [facility] [place] - 02/02/2017 9:33 AM EDT This study is for PACS storage only and not for interpretation. us Chanda Alejandre MD, MPH IMG OUTSIDE IMAGING W/ OUT INTERPRETATION Final Result [facility] [place] documented in this encounter Visit Diagnoses Not on filedocumented in this encounter Additional Source Comments The information contained in this document represents components of the legal health record. It is not the complete legal health record.[facility]
--- OUTSIDE RECORDS SUMMARY | 2011-07-08 01:00 | XMS_ITS | Encounter Summary ---
Author Organization [facility] Address [address] [facility] [address] [place] [address] Phone Care Team Providers Care Tenant Relations Coordinator Name Role Phone Unavailable Primary Care Provider Unavailabl e Encounter Details Date Type Department Care Team (Late st Contact Info) Description 07/08/2011 Hospital Encounter [facility] General Imaging [address] [place] [address] Chanda Alejandre MD, MPH [address] [place] [address] [email or web address] Social History Tobacco Use Types Packs/Day Years [...] Procedure Name Priority Date/Time Associated Diagnosis Comments US CHEST OUTSIDE (NO INTERPRETATION) Routine 07/08/2011 12:00 AM EST documented in this encounter Results * US Chest Outside (No Interpretation) (07/08/2011 12:00 AM EST) Narrative [facility] [place] - 02/02/2017 9:33 AM EDT This study is for PACS storage only and not for interpretation. us Chanda Alejandre MD, MPH IMG OUTSIDE IMAGING W/ OUT INTERPRETATION Final Result [facility] documented in this encounter Visit Diagnoses Not on filedocumented in this encounter Additional Source Comments The information contained in this document represents components of the legal health record. It is not the complete legal health record.[facility]
--- OUTSIDE RECORDS SUMMARY | 2011-07-31 01:00 | XMS_ITS | Encounter Summary ---
Author Organization [facility] Address [address] [facility] [address] [place] [address] Phone Care Team Providers Care Placement Coordinator Name Role Phone Unavailable Primary Care Provider Unavailabl e Reason for Visit * MRI/CAT Scan - Closed Specialty Diagnoses / Procedures Referred By Allyson mackenzie Referred To Contact Procedures CT Head Outside (No Interpretation) Chanda Alejandre MD, MPH [address] [place] [address] Phone: tel: fax: mailto:[email or web address] Referral ID Status Reason Start Date Expiration Date Visits Re quested Visits Authorized [id number] Closed 02/02/2017 02/02/2018 1 1 Encounter Details Date Type Department Care Team (Late st Contact Info) Description 07/31/2011 Hospital Encounter [facility] General Imaging [address] [place] [address] Chanda Alejandre MD, MPH [address] [place] [address] [email or web address] Social History Tobacco Use Types Packs/Day [...] Comments CT HEAD OUTSIDE (NO INTERPRETATION) Routine 07/31/2011 12:00 AM EST documented in this encounter Results * CT Head Outside (No Interpretation) (07/31/2011 12:00 AM EST) Narrative [facility] IMG INTERFACES - 02/02/2017 9:32 AM EDT This study is for PACS storage only and not for interpretation. us Chanda Alejandre MD, MPH IMG OUTSIDE IMAGING W/ OUT INTERPRETATION Final Result [facility] IMG INTERFACES documented in this encounter Visit Diagnoses Not on filedocumented in this encounter Additional Source Comments The information contained in this document represents components of the legal health record. It is not the complete legal health record.[facility]
--- OUTSIDE RECORDS SUMMARY | 2011-08-11 01:00 | XMS_ITS | Encounter Summary ---
Author Organization [facility] Address [address] [facility] [address] [place] [address] Phone Care Team Providers Care Manager Critical Care Name Role Phone Unavailable Primary Care Provider Unavailabl e Reason for Visit * MRI/CAT Scan - Closed Specialty Diagnoses / Procedures Referred By Allyson mackenzie Referred To Contact Procedures CT Head Outside (No Interpretation) Chanda Alejandre MD, MPH [address] [place] [address] Phone: tel: fax: mailto:[email or web address] Referral ID Status Reason Start Date Expiration Date Visits Re quested Visits Authorized [id number] Closed 02/02/2017 02/02/2018 1 1 Encounter Details Date Type Department Care Team (Late st Contact Info) Description 08/11/2011 Hospital Encounter [facility] General Imaging [address] [place] [address] Chanda Alejandre MD, MPH [address] [place] [address] [email or web address] Social History Tobacco Use Types Packs/Day Years [...] Comments CT HEAD OUTSIDE (NO INTERPRETATION) Routine 08/11/2011 12:00 AM EST documented in this encounter Results * CT Head Outside (No Interpretation) (08/11/2011 12:00 AM EST) Narrative [facility] INTERFACES - 02/02/2017 9:30 AM EDT This study is for PACS storage only and not for interpretation. us Chanda Alejandre MD, MPH IMG OUTSIDE IMAGING W/ OUT INTERPRETATION Final Result [facility]G INTERFACES documented in this encounter Visit Diagnoses Not on filedocumented in this encounter Additional Source Comments The information contained in this document represents components of the legal health record. It is not the complete legal health record.[facility]
--- OUTSIDE RECORDS SUMMARY | 2011-11-20 | XMS_ITS | Encounter Summary ---
Author Organization [facility] Address [address] [facility] [address] [place] [address] Phone Care Team Providers Care Supervisor Porcelain Department Name Role Phone Unavailable Primary Care Provider Unavailabl e Reason for Visit * MRI/CAT Scan - Closed Specialty Diagnoses / Procedures Referred By Allyson mackenzie Referred To Contact Procedures CT Head Outside (No Interpretation) Chanda Alejandre MD, MPH [address] [place] [address] Phone: tel: fax: mailto:[email or web address] Referral ID Status Reason Start Date Expiration Date Visits Re quested Visits Authorized [id number] Closed 02/02/2017 02/02/2018 1 1 Encounter Details Date Type Department Care Team (Late st Contact Info) Description 11/20/2011 Hospital Encounter [facility] General Imaging [address] [place] [address] Chanda Alejandre MD, MPH [address] [place] [address] [email or web address] Social History Tobacco Use Types [...] Comments CT HEAD OUTSIDE (NO INTERPRETATION) Routine 11/20/2011 12:00 AM EDT documented in this encounter Results * CT Head Outside (No Interpretation) (11/20/2011 12:00 AM EDT) Narrative [facility] IMG INTERFACES - 02/02/2017 9:30 AM EDT This study is for PACS storage only and not for interpretation. us Chanda Alejandre MD, MPH IMG OUTSIDE IMAGING W/ OUT INTERPRETATION Final Result [facility] IMG INTERFACES documented in this encounter Visit Diagnoses Not on filedocumented in this encounter Additional Source Comments The information contained in this document represents components of the legal health record. It is not the complete legal health record.[facility]
--- OUTSIDE RECORDS SUMMARY | 2012-02-02 | XMS_ITS | Encounter Summary ---
Author Organization [facility] Address [address] [facility] [address] [place] [address] Phone Care Team Providers Care Quality Systems Technician Name Role Phone Unavailable Primary Care Provider Unavailabl e Reason for Visit * MRI/CAT Scan - Closed Specialty Diagnoses / Procedures Referred By Allyson mackenzie Referred To Contact Procedures CT Head Outside (No Interpretation) Chanda Alejandre MD, MPH [address] [place] [address] Phone: tel: fax: mailto:[email or web address] Referral ID Status Reason Start Date Expiration Date Visits Re quested Visits Authorized [id number] Closed 02/02/2017 02/02/2018 1 1 Encounter Details Date Type Department Care Team (Late st Contact Info) Description 02/02/2012 Hospital Encounter [facility] General Imaging [address] [place] [address] Chanda Alejandre MD, MPH [address] [place] [address] [email or web address] Social History Tobacco Use Types Packs/Day [...] Comments CT HEAD OUTSIDE (NO INTERPRETATION) Routine 02/02/2012 12:00 AM EDT documented in this encounter Results * CT Head Outside (No Interpretation) (02/02/2012 12:00 AM EDT) Narrative [facility] [place] - 02/02/2017 9:13 AM EDT This study is for PACS storage only and not for interpretation. us Chanda Alejandre MD, MPH IMG OUTSIDE IMAGING W/ OUT INTERPRETATION Final Result [facility] [place] documented in this encounter Visit Diagnoses Not on filedocumented in this encounter Additional Source Comments The information contained in this document represents components of the legal health record. It is not the complete legal health record.[facility]
--- OUTSIDE RECORDS SUMMARY | 2012-06-01 01:00 | XMS_ITS | Encounter Summary ---
Author Organization [facility] Address [address] [facility] [address] [place] [address] Phone Care Team Providers Care Software Test Automation Engineer Name Role Phone Unavailable Primary Care Provider Unavailabl e Reason for Visit * MRI/CAT Scan - Closed Specialty Diagnoses / Procedures Referred By Allyson mackenzie Referred To Contact Procedures CT Head Outside (No Interpretation) Chanda Alejandre MD, MPH [address] [place] [address] Phone: tel: fax: mailto:[email or web address] Referral ID Status Reason Start Date Expiration Date Visits Re quested Visits Authorized [id number] Closed 02/02/2017 02/02/2018 1 1 Encounter Details Date Type Department Care Team (Late st Contact Info) Description 06/01/2012 Hospital Encounter [facility] General Imaging [address] [place] [address] Chanda Alejandre MD, MPH [address] [place] [address] [email or web address] Social History Tobacco Use Types [...] Comments CT HEAD OUTSIDE (NO INTERPRETATION) Routine 06/01/2012 12:00 AM EST documented in this encounter Results * CT Head Outside (No Interpretation) (06/01/2012 12:00 AM EST) Narrative [facility]G INTERFACES - 02/02/2017 9:13 AM EDT This study is for PACS storage only and not for interpretation. us Chanda Alejandre MD, MPH IMG OUTSIDE IMAGING W/ OUT INTERPRETATION Final Result [facility] INTERFACES documented in this encounter Visit Diagnoses Not on filedocumented in this encounter Additional Source Comments The information contained in this document represents components of the legal health record. It is not the complete legal health record.[facility]
--- OUTSIDE RECORDS SUMMARY | 2012-10-06 | XMS_ITS | Encounter Summary ---
Author Organization [facility] Address [address] [facility] [address] [place] [address] Phone Care Team Providers Care Dial Buffer Name Role Phone Unavailable Primary Care Provider Unavailabl e Reason for Visit * MRI/CAT Scan - Closed Specialty Diagnoses / Procedures Referred By Allyson mackenzie Referred To Contact Procedures CT Head Outside (No Interpretation) Chanda Alejandre MD, MPH [address] [place] [address] Phone: tel: fax: mailto:[email or web address] Referral ID Status Reason Start Date Expiration Date Visits Re quested Visits Authorized [id number] Closed 02/02/2017 02/02/2018 1 1 Encounter Details Date Type Department Care Team (Late st Contact Info) Description 10/06/2012 Hospital Encounter [facility] General Imaging [address] [place] [address] Chanda Alejandre MD, MPH [address] [place] [address] [email or web address] Social History Tobacco Use Types Packs/Day Years [...] Comments CT HEAD OUTSIDE (NO INTERPRETATION) Routine 10/06/2012 12:00 AM EDT documented in this encounter Results * CT Head Outside (No Interpretation) (10/06/2012 12:00 AM EDT) Narrative [facility] [place] [place] - 02/02/2017 9:12 AM EDT This study is for PACS storage only and not for interpretation. us Chanda Alejandre MD, MPH IMG OUTSIDE IMAGING W/ OUT INTERPRETATION Final Result [facility] [place] documented in this encounter Visit Diagnoses Not on filedocumented in this encounter Additional Source Comments The information contained in this document represents components of the legal health record. It is not the complete legal health record.[facility]
--- OUTSIDE RECORDS SUMMARY | 2013-01-12 | XMS_ITS | Encounter Summary ---
Author Organization [facility] Address [address] [place] [id number] Phone Care Team Providers Care Network Intern Name Role Phone Unavailable Primary Care Provider Unavailabl e Reason for Visit * MRI/CAT Scan - Closed Specialty Diagnoses / Procedures Referred By Allyson mackenzie Referred To Contact Procedures CT Abdomen Outside (No Interpretation) Chanda Alejandre MD, MPH [address] [place] [address] Phone: tel: fax: mailto:[email or web address] Referral ID Status Reason Start Date Expiration Date Visits Re quested Visits Authorized [id number] Closed 02/02/2017 02/02/2018 1 1 Encounter Details Date Type Department Care Team (Late st Contact Info) Description 01/12/2013 Hospital Encounter [facility] [address] [place] [address] Chanda Alejandre MD, MPH [address] [place] [address] [email or web address] Social History Tobacco Use Types [...] Name Priority Date/Time Associated Diagnosis Comments CT ABDOMEN OUTSIDE (NO INTERPRETATION) Routine 01/12/2013 12:00 AM EDT documented in this encounter Results * CT Abdomen Outside (No Interpretation) (01/12/2013 12:00 AM EDT) Narrative [facility]G INTERFACES - 02/02/2017 9:12 AM EDT This study is for PACS storage only and not for interpretation. us Chanda Alejandre MD, MPH IMG OUTSIDE IMAGING W/ OUT INTERPRETATION Final Result [facility] IMG INTERFACES documented in this encounter Visit Diagnoses Not on filedocumented in this encounter Additional Source Comments The information contained in this document represents components of the legal health record. It is not the complete legal health record.[facility]
--- OUTSIDE RECORDS SUMMARY | 2013-10-03 | XMS_ITS | Encounter Summary ---
Author Organization [facility] Address [address] [place] [phone] Phone Care Team Providers Care Change Control Analyst Name Role Phone Unavailable Primary Care Provider Unavailabl e Reason for Visit * MRI/CAT Scan - Closed Specialty Diagnoses / Procedures Referred By Allyson mackenzie Referred To Contact Procedures CT Head Outside (No Interpretation) Chanda Alejandre MD, MPH [address] [place] [address] Phone: tel: fax: mailto:[email or web address] Referral ID Status Reason Start Date Expiration Date Visits Re quested Visits Authorized [id number] Closed 02/02/2017 02/02/2018 1 1 Encounter Details Date Type Department Care Team (Late st Contact Info) Description 10/03/2013 Hospital Encounter [facility] [address] [place] [address] Chanda Alejandre MD, MPH [address] [place] [address] [email or web address] Social History Tobacco Use Types [...] Comments CT HEAD OUTSIDE (NO INTERPRETATION) Routine 10/03/2013 12:00 AM EDT documented in this encounter Results * CT Head Outside (No Interpretation) (10/03/2013 12:00 AM EDT) Narrative [facility] - 02/02/2017 9:11 AM EDT This study is for PACS storage only and not for interpretation. us Chanda Alejandre MD, MPH IMG OUTSIDE IMAGING W/ OUT INTERPRETATION Final Result [facility] documented in this encounter Visit Diagnoses Not on filedocumented in this encounter Additional Source Comments The information contained in this document represents components of the legal health record. It is not the complete legal health record.[facility]
[2025-04-15] VITALS (24 sets, daily range): BP systolic 71–134; BP diastolic 37–77; PULSE 56–105; RESP 2–28; TEMP 33.4–37.2; O2SAT 80–99; BMI 35.4; BMI 28.6; BMI 28.9
--- NOTE | ~2025-04-15 | XR_ITS ---
CLINICAL HISTORY: SOB 1 view chest x-ray Comparison: None Findings: There is enlargement of the cardiopericardial silhouette. There is increase of interstitial lung markings. There is additional opacity of the right lung base. No acute fracture. IMPRESSION: Cardiomegaly with pulmonary vascular congestion. Additional atelectasis/infiltrate of the right lung base. This document has been electronically signed by: Nomi Álvarez MD on 04/15/2025 17:14:23
--- NOTE | ~2025-04-15 | CT_ITS ---
CLINICAL HISTORY: altered mental status r o IC pathology CT head without contrast Comparison: None provided Findings: There is a bifrontal craniotomy. There is streak artifact from metallic objects partially obscuring the frontal lobes. There is bifrontal encephalomalacia [id number]. There are small areas of encephalomalacia within the left frontal periventricular white matter and left basal ganglia. There is no acute intracranial hemorrhage. Ventricles are within normal limits in size. No mass effect or midline shift is present. The vincent-white matter differentiation appears normal. There is generalized cerebral atrophy. The visualized portions of the orbits, paranasal sinuses, and mastoids are unremarkable. No acute fractures are identified. IMPRESSION: 1. No acute intracranial abnormality. 2. Chronic findings as above. This document has been electronically signed by: Chema Moore MD on 04/16/2025 04:10:10
--- NOTE | 2025-04-15 13:51 | ECG_ITS ---
Test Reason : SOB Blood Pressure : */* mmHG Vent. Rate : 65 BPM Atrial Rate : 65 BPM P-R Int : 220 ms QRS Dur : 118 ms QT Int : 406 ms P-R-T Axes : 41 17 82 degrees QTcB Int : 422 ms Sinus rhythm with 1st degree A-V block Non-specific intra-ventricular conduction delay Nonspecific T wave abnormality Abnormal ECG When compared with ECG of 05-Oct-2022 21:14, Nonspecific T wave abnormality now evident in Inferior leads Nonspecific T wave abnormality, worse in Anterolateral leads Referred By: Britt Altamirano Electronically Signed By: ERIKA ALEXANDER
--- NOTE | 2025-04-15 14:07 | ED_ITS ---
HPI - General Adult General Chief complaint: General Medical Stated complaint: SOB Time Seen by Provider: 04/15/25 14:06 Source: patient and EMS Mode of arrival: EMS Limitations: physical limitation (pt has a history of dementia) History of Present Illness ED Provider: Britt Altamirano PA-C HPI narrative: Patient is a 69 year old assigned male at with a history of dementia, adjustment disorder with anxiety, BPH, epilepsy, GERD, chronic pain, hodgkin lymphoma, and TBI presenting to the emergency department today with increased shortness of breath and altered mental status. SNF staff states that the patient yesterday was diagnosed with pneumonia but his oxygenation saturation continued to fall and after speaking with the patient's healthcare proxy, Mc, they agreed to transport to a hospital. Patient's healthcare proxy, Mc, confirms the patient is DNR/DNI however, they want him to have his illness treated and to NOT be on comfort measures at this time. Don can be reached at [phone] Related Data Home Medications ?Medication ?Instructions ?Recorded ?Confirmed acetaminophen 500 mg tablet 1,000 mg PO TID 10/06/22 1 aluminum-mag hydroxide-simethicone 30 ml PO Q4H PRN In digestion 10/06/22 04/15/25 200 mg-200 mg-20 mg/5 mL oral susp (Ophelia-Lanta) baclofen 5 mg tablet 15 mg PO TID 10/06/22 bisacodyl 10 mg rectal suppository 10 mg MI DAILY PRN constipation, 10/06/22 04/15/25 if no BM for 8 hours after MOM guaifenesin 100 mg/5 mL oral 200 mg PO Q4H PRN Cough 0 10/06/22 04/15/25 liquid (Ophelia-Tussin) latanoprost 0.005 % eye drops 1 drp ophthalmic (eye) B EDTIME 10/06/22 04/15/25 levetiracetam 1,000 mg tablet 1,000 mg PO BID 10/06/22 04/15/25 linaclotide 290 mcg capsule 290 mcg PO DAILY 10/06/22 04/15/25 (Linzess) magnesium hydroxide 400 mg/5 mL 30 ml PO DAILY PRN Con stipation, 10/06/22 04/15/25 oral suspension (Milk of Magnesia) if no BM for 3 days melatonin 3 mg tablet 6 mg PO BEDTIME 10/06/22 menthol 5 % topical patch (Icy Hot 1 patch topical Q12 H PRN hip pain 10/06/22 04/15/25 (menthol)) tamsulosin 0.4 mg capsule 0.4 mg PO BEDTIME 10/06/22 1 timolol maleate 0.5 % eye drops 1 drp ophthalmic-Left DAILY 10/06/22 04/15/25 albuterol sulfate 2.5 mg/3 mL 2.5 mg inhalation Q6H MI N 04/15/25 04/15/25 (0.083 %) solution for nebulization SOB/wheezing amoxicillin 875 mg-potassium 1 tab PO BID END DATE 04/22/2504/15/25 04/15/25 clavulanate 125 mg tablet calcium carbonate 500 mg PO Q8H PRN Heartburn 04/15/25 04/15/25 docusate sodium 100 mg capsule 100 mg PO BID PRN Const ipation 04/15/25 04/15/25 doxycycline hyclate 100 mg tablet 100 mg PO BID END DA TE 04/22/25 04/15/25 04/15/25 ergocalciferol (vitamin D2) 1,250 1,250 mcg PO Q28D 04/15/25 mcg (50,000 unit) capsule (Vitamin D2) fluticasone furoate 100 1 inh inhalation DAILY 04/1504/15/25 mcg/actuation blister powder for inhalation (Arnuity Ellipta) ipratropium 0.5 mg-albuterol 3 mg 3 ml inhalation Q4H PRN 04/15/25 04/15/25 (2.5 mg base)/3 mL nebulization pneumonia/SOB soln mirtazapine 7.5 mg tablet 7.5 mg PO BEDTIME 04/15/25 1 sodium phosphates 19 gram-7 118 ml MI DAILY PRN consti pation, 04/15/25 04/15/25 gram/118 mL enema (Fleet Enema) if no BM for 8 hours a fter bisacodyl tizanidine 2 mg tablet 2 mg PO BEDTIME 04/15/25 tramadol 50 mg tablet 100 mg PO Q8H PRN LOWER BACK PAIN 04/15/25 04/15/25 trazodone 50 mg tablet 25 mg PO TID 04/15/25 Allergies Allergy/AdvReac Type Severity Reaction Status Date / Time No Known Allergies Allergy Verified 04/15/25 14:07 Review of Systems 2 Constitutional: Constitutional: Reports as per HPI Eyes: Eyes: Reports as per HPI ENT: Reports as per HPI Cardiovascular: Cardiovascular: Reports as per HPI Respiratory: Respiratory: Reports as per HPI Gastrointestinal: Gastrointestinal: Reports as per HPI Genitourinary: Genitourinary: Reports as per HPI Musculoskeletal: Musculoskeletal: Reports as per HPI Integumentary/Breasts: Skin/Breast: Reports as per HPI Neurologic: Reports as per HPI and Reports confusion (per his baseline) Psychiatric: Psychiatric: Reports as per HPI and Reports confusion (per his baseline) Endocrine: Endocrine: Reports as per HPI Hematologic/Lymphatic: Hematologic/Lymphatic: Reports as per HPI Allergic/Immunologic: Allergic/Immunologic: Reports as per HPI [facility] Past Medical History Attestation statement: The following information was validated with the patient. (all information validated with healthcare proxy Don) Source: old records reviewed, obtained from family (patient's healthcare proxy Don provided additional history), nursing notes reviewed and other ([facility] staff provided additional history) Medical History Skull fracture Chronic back pain Dementia Surgical History History of surgery on lower extremity Social History Social History Household Members: Unknown / Unable to assess Housing: Unknown / Unable to assess Patient Tobacco Use Status: Never used Tobacco Currently Displaying Signs/Symptoms of Drug Intoxication Withdrawal: No Advance Directives: Yes Advance Directives Information Provided: No Advance Directives on File: No Advance Directives Date on File: 04/15/25 service: No Physical Exam ED Vital Signs: Vital Signs - 24 hr 04/15/25 13:43 04/15/25 14:06 04/15/25 14:37 Temperature 98.1 F 92.3 F L 92.1 F L Pulse Rate 67 67 68 Respiratory Rate 18 22 H 18 Blood Pressure 111/67 117/67 95/50 L Pulse Oximetry 94 80 L 95 Oxygen Delivery Method Nasal Cannula Room Air Nasal Cannula Oxygen Flow Rate 2 4 04/15/25 15:44 04/15/25 15:54 04/15/25 16:00 Temperature Pulse Rate 58 57 56 Respiratory Rate Blood Pressure 77/40 L 71/40 L 83/37 L Pulse Oximetry Oxygen Delivery Method Oxygen Flow Rate 04/15/25 16:04 04/15/25 16:05 04/15/25 16:19 Temperature 92.3 F L 92.5 F L Pulse Rate 58 56 58 Respiratory Rate 20 18 Blood Pressure 80/37 L 80/37 L 92/43 L Pulse Oximetry 99 98 Oxygen Delivery Method Nasal Cannula Nasal Cannula Oxygen Flow Rate 4 4 BMI result Body Mass Index 28.6 Const General: cooperative, no acute distress, alert, awake and confusion (per his baseline) Nutritional Appearance: well nourished Orientation/consciousness: confusion (per his baseline) HENMT Head: Yes normal to inspection and Yes atraumatic Ears: hearing grossly normal bilaterally and external ears normal General nose exam: Normal external nose present, no nasal discharge noted and no epistaxis Face and sinus: Yes normal facial exam, No abrasion and No laceration Mouth: Normal oral and palatal mucosa present, no drooling and no muffled voice Eyes General: appearance normal, both eyes and all related structures Periorbital: periorbital findings normal Eyelids: Yes eyelids normal Conjunctivae: conjunctivae normal Pupils: Equal, round and reactive pupils present EOM: EOMs intact bilaterally Neck Neck: Yes normal visual inspection and Yes full ROM Resp Effort & Inspection: able to speak in complete sentences and labored Neuro General: confusion (per his baseline) Cranial nerves: Yes Equal, round and reactive pupils present Extrem General: Yes normal to inspection, Yes full ROM and Yes capillary refill normal Medications Administered Generic Name Dose Route Start Last Admin Trade Name Freq PRN Reason Stop Dose Admin Enoxaparin Sodium 40 mg 04/15/25 16:45 04/15/25 17:03 Enoxaparin Sodium 40 Mg/0.4 Ml Syringe SUBCUT 40 mg Q24H MICAELA Administration Famotidine 20 mg 04/15/25 21:00 04/16/25 08:00 Famotidine/Pf 20 Mg/2 Ml Vial IVPUSH 20 mg BID MICAELA Administration Norepinephrine Bitartrate 8 mg in 250 mls @ 0 mls/hr 04/15/25 15:15 04/16/25 05:48 Levophed IVCONT 0.05 mcg/kg/min .Q0M MICAELA 8.33 mls/hr Protocol Titration Per Protocol Piperacillin Sod/Tazobactam 100 mls @ 200 mls/hr 04/15/25 19:45 04/16/25 07:44 Sod 4.5 gm/ Sodium Chloride IV Infused Q6H MICAELA Infusion Levetiracetam 1,000 mg in 100 mls @ 400 mls/hr 04/16/25 09:00 04/16/25 09:54 Keppra IV Infused Q12H MICAELA Infusion Sodium Chloride 3 ml 04/16/25 08:00 04/16/25 07:47 0.9 % Sodium Chloride Flush 3 Ml Syringe IVFLUSH 3 ml QSHIFT MICAELA Administration Discontinued Medications Generic Name Dose Route Start Last Admin Trade Name Freq PRN Reason Stop Dose Admin Ceftriaxone Sodium 1 gm/ 50 mls @ 100 mls/hr 04/15/25 14:11 04/15/25 15:09 Sodium Chloride IV 04/15/25 14:40 Infused ONCE ONE Infusion Lactated Ringer's 2,121 mls @ 2,121 mls/hr 04/15/25 14:49 04/15/25 15:51 Lr IV 04/15/25 15:48 Infused .Q1H ONE Infusion Lactated Ringer's 1,000 mls @ 100 mls/hr 04/15/25 16:45 04/16/25 08:20 Lr IVCONT Infused .Q10H MICAELA Infusion Albumin Human 100 mls @ 133.333 mls/hr 04/15/25 19:30 04/15/25 21:27 Kedbumin 25 % IV 04/15/25 21:14 Infused Q1H MICAELA Infusion Vancomycin HCl 2,000 mg in 500 mls @ 250 mls/hr 04/16/25 02:45 04/16/25 05:26 Vancomycin/Ns IV 04/16/25 04:44 Infused ONCE ONE Infusion Potassium Phos/Sodium Phos 2 packet 04/16/25 09:00 04/16/25 08:01 Sodium,Potassium Phosphates Powd.Pack PO 04/17/25 08:59 2 packet BID MICAELA Administration Procedures Procedure Narrative Procedure Narrative: EMERGENCY ULTRASOUND INTERPRETATION-Limited Echocardiography [This study was ordered, performed, and interpreted by myself. The study reveals: Impression:NO PERICARDIAL EFFUSION, minimal respiratory variation IVC suggestive of fluid nonresponder in shock] [Emergent Cardiac for Indication: Views Used: PLAX, IVC Pericardial Effusion/Tamponade Findings: NONE RV Dilation (> LV diam in 4ch apical): Inadequate/limited assessment Global LV Fxn: Inadequate/limited assessment IVC Dilation and Resp Variation: Minimal respiratory variation suggesting fluid nonresponder in shock Performed by: MD Althea Images were stored CPT:[id number]] Medical Decision Making Medical Decision Making MDM Narrative: Patient is a 69 year old assigned male at with a history of dementia, adjustment disorder with anxiety, BPH, epilepsy, GERD, chronic pain, hodgkin lymphoma, and TBI presenting to the emergency department today with increased shortness of breath and altered mental status. Patient's physical exam was as noted in the physical exam portion of this note. Patient was hypothermic with a temp of 92.3 and hypotensive at 77/40. Patient was initially hypoxic on room air at 80% but once on 2 liters of oxygen via nasal cannula, came up to 95%. Patient's blood work showed a left shift of 76% with 19% bandemia, BUN of 35, lactic acid of 2.5, AST of 38, ALT 85, and alk phos of 187. Patient's urine showed trace blood, small leuks, 21-50 WBC - possible UTI. Patient's EKG was unremarkable. Patient's chest x-ray showed cardiomegaly with pulmonary vascular congestion and a right lung base infiltrate. I was suspicious this patient was severely septic at 1449. Patient's initial weight placed in the chart had his BMI >35 and therefore - he was given a 30ml/kg LR bolus based on ideal body weight. I suspect the patient's source is his right lower lobe pneumonia for which he was given IV ceftriaxone. I explained my physical exam findings as well as all test results to the patient and the patient's healthcare proxy. I answered all questions asked by the patient's healthcare proxy. Patient remained hypotensive after receiving IV fluids - and IV levophed was started. Dr. Terell Oh performed a POCUS and determined the patient's IVC was well appearing and not collapsed. Dr. Terell Oh verbalized agreement with the patient being admitted to ICU level of care. I spoke with the ICU attending, Dr. He, who agreed to admission. Patient's healthcare proxy verbalized agreement and understanding with this treatment plan and admission to the ICU. Differential Diagnosis Differential Diagnoses: The differential diagnosis associated with the presentation includes Hypoxia Pneumonia Sepsis Hypotension Admission/Observation Consideration of admission/observation: Escalation of care including admission/observation considered Patient admitted to the ICU as noted in the MDM Rationale portion of this note. Consult Healthcare Provider Management of the patient was discussed with: Home Office Representative (spoke to Dr. He, the maple products maker, who agreed to admission to the ICU as noted in the MDM Rationale portion of this note. ) Lab Data [facility] Lab Attestation statement: I reviewed the patient's lab results. My interpretation of these results are in the MDM Rationale portion of this note. 04/16/25 04:13 04/16/25 04:13 Labs: Lab Results 04/15/25 04/15/25 Range/Units 14:26 16:11 WBC 10.3 (4.8-10.8) X10*3/uL RBC 4.27 L D (4.60-5.80) X10*6/uL Hgb 12.7 L D (14.0-18.0) g/dl Hct 40.3 L D (42.0-52.0) % MCV 94.4 (80.0-98.0) fL MCH 29.7 (27.0-33.0) pg MCHC 31.5 (31.0-36.0) g/dl RDW 14.2 (11.0-16.0) % Plt Count 103 L D (160-400) X10*3/uL MPV 9.7 (9.4-12.4) fL Immature Gran % (Auto) Cancelled Neut % (Auto) Cancelled Lymph % (Auto) Cancelled Gulf % (Auto) Cancelled Eos % (Auto) Cancelled Baso % (Auto) Cancelled Lymph # (Auto) Cancelled [place] # (Auto) Cancelled Eos # (Auto) Cancelled Baso # (Auto) Cancelled Abs Immat Gran (auto) Cancelled Absolute Neuts (auto) Cancelled Absolute Nucleated RBC 0.000 (0.0-0.012) X10*3/uL Nucleated RBC % (auto) 0.0 (0.0-0.2) /100WBC Neutrophils % (Manual) 76 H (45-73) % Band Neutrophils % 19 H (3-5) % Lymphocytes % (Manual) 3 L (20-40) % Monocytes % (Manual) 1 L (2-11) % Metamyelocytes % 1 % Abs Neuts (Manual) 9.8 H (2.0-8.3) X10*3/uL Lymphocytes # (Manual) 0.3 L (1.2-4.9) X10*3/uL Monocytes # (Manual) 0.1 (0.1-1.2) X10*3/uL Metamyelocytes # 0.1 X10*3/uL Toxic Vacuolation PRESENT Dohle Bodies PRESENT Platelet Estimate SLIGHTLY DECREASED (NORMAL) Large Platelets PRESENT Plt Morphology Comment NOTED RBC Morphology NOTED Macrocytosis 1+ (5-14) /OIF PT 12.1 (10.9-12.4) SEC INR 1.1 (0.9-1.1) Sodium 142 (135-145) mmol/L Potassium 4.5 (3.3-5.1) mmol/L Chloride 103 (96-108) mmol/L Carbon Dioxide 29 (22-29) mmol/L Anion Gap 15 (12-20) BUN 35 H (9-16) mg/dL Creatinine 1.05 (0.5-1.4) mg/dL Estim Creat Clear Calc 79.5 Estimated GFR > 60 Random Glucose 159 H (60-115) mg/dL Lactic Acid 2.5 H* (0.5-2.0) mmol/L Calcium 10.0 D (8.4-10.2) mg/dL Phosphorus 2.7 (2.7-4.5) mg/dL Magnesium 2.3 (1.6-2.6) mg/dL Total Bilirubin 0.5 (0.0-1.0) mg/dL AST 38 H (5-37) U/L ALT 85 H (0-40) U/L Alkaline Phosphatase 187 H (39-117) U/L Troponin I High Sens < 2.7 (<3.5-35.0) ng/L NT-Pro-B Natriuret Pep 210.8 (<300) pg/mL Total Protein 7.6 (6.5-8.0) g/dL Albumin 3.7 (3.5-5.0) g/dL Urine Color Yellow Urine Appearance Clear Urine pH 6.0 (5.0-9.0) Ur Specific [place] 1.025 (1.005-1.025) Urine Protein 30 (1+) H (Neg-Trace) mg/dL Urine Glucose (UA) Negative (Negative) mg/dL Urine Ketones Trace (Negative) mg/dL Urine Blood Trace H (Negative) Urine Nitrite Negative (Negative) Ur Leukocyte Esterase Small (1+) H (Negative) Urine RBC 3-5 H (0-2) /HPF Urine WBC 21-50 H (0-5) /HPF Ur Squamous Epith Cells 6-10 (0-2) /HPF Urine Bacteria None Seen (None Seen) Hyaline Casts 3-5 (0-2) /LPF COVID-19 (DOMONIQUE) Negative (Negative) COVID-19 Clin Com See Note Influenza Type A (LUIS) Negative (Negative) Influenza Type B (LUIS) Negative (Negative) Influenza A & B Note See Note Independent Interpretation I performed an independent interpretation of an: EKG and Plain X-Ray Interpretation: My interpretation is in agreement with the radiologist's impression of this imaging study. L CLINICAL HISTORY: SOB 1 view chest x-ray Comparison: None Findings: There is enlargement of the cardiopericardial silhouette. There is increase of interstitial lung markings. There is additional opacity of the right lung base. No acute fracture. IMPRESSION: Cardiomegaly with pulmonary vascular congestion. Additional atelectasis/infiltrate of the right lung base. This document has been electronically signed by: Nomi Álvarez MD on 04/15/2025 17:14:23 Dictated By: Nomi Álvarez MD Signed By: Electronically signed by Nomi Álvarez MD 04/15/25 1714 I independently interpreted this EKG and am in agreement with the below findings: Vent. Rate: 65 BPM Atrial Rate: 65 BPM P-R Int: 220 ms QRS Dur: 118 ms QT Int: 406 ms P-R-T Axes: 41 17 82 degrees QTcB Int: 422 ms Sinus rhythm with 1st degree A-V block Non-specific intra-ventricular conduction delay Nonspecific T wave abnormality When compared with ECG of 05-Oct-2022 21:14, Nonspecific T wave abnormality now evident in Inferior leads Nonspecific T wave abnormality, worse in Anterolateral leads DD/ 1410 Radiology Impression Discussion of test interpretation with radiology: I have reviewed the radiologist's reading. Independent Historian Clinical information obtained from an independent historian. History obtained from or confirmed by: EMS (EMS provided additional history and confirmed the history provided by the patient. ) and Other (Patient's healthcare proxy provided additional history and confirmed the history provided by the SNF) External Record Review External record reviewed: Other (reviewed SNF records) Attestation Attending Attestation: I was personally present and available for consultation in the ED. I have reviewed everything on the chart that is available and agree with the documentation provided by the SANDEE including discussion about the assessment, treatment plan and discussion. Based on medical record the care appears appropriate. Patient appears to be in septic shock with hypothermia and persistent hypotension. Agree with plan of care for admission to the ICU Terell Oh MD [facility] Emergency Medicine Critical Care Time Critical Care Time Critical Care Time: Yes Total Critical Care Time: 53 Attestation: I spent 53 minutes of Critical Care Time with this patient. This does not include time spent on separately reported billable procedures. ED Critical Care: Authorized and Performed by: Terell Oh MD Total critical care time: Approximately 53 min Due to a high probability of clinically significant, life threatening deterioration, the patient required my highest level of preparedness to intervene emergently and I personally spent this critical care time directly and personally managing the patient. This critical care time included obtaining a history; examining the patient; pulse oximetry; ordering and review of studies; arranging urgent treatment with development of a management plan; evaluation of patient's response to treatment; frequent reassessment; and, discussions with other providers. This critical care time was performed to assess and manage the high probability of imminent, life-threatening deterioration that could result in multi-organ failure. It was exclusive of separately billable procedures and treating other patients and teaching time. Discharge Plan Discharge Clinical Impression: Hypoxia Pneumonia Qualifiers: Pneumonia type: due to unspecified organism Laterality: right Lung location: l ower lobe of lung Qualified Code(s): J18.9 - Pneumonia, unspecified organism Hypotension Qualifiers: Hypotension type: unspecified hypotension type Qualified Code(s): I95.9 - Hypotension, unspecified Patient Disposition: Admitted As Inpatient Interventions: Admission Worksheet (ED) Last Done: 04/15/25 18:11 Discharge Date/Time: 04/15/25 16:45
[2025-04-15 14:39] LABS: Hematocrit 40.3 % (42.0-52.0); Hemoglobin 12.7 g/dl (14.0-18.0); Mean Corpuscular HGB Conc 31.5 g/dl (31.0-36.0); Mean Corpuscular Hemoglobin 29.7 pg (27.0-33.0); Mean Corpuscular Volume 94.4 fL (80.0-98.0); NRBC Abs Auto 0.000 X10*3/uL (0.0-0.012); NRBC Pct Auto 0.0 /100WBC (0.0-0.2); Red Blood Count 4.27 X10*6/uL (4.60-5.80); White Blood Count 10.3 X10*3/uL (4.8-10.8)
[2025-04-15 14:48] LABS: INTERNATIONAL NORM RATIO 1.1 (0.9-1.1); Prothrombin Time 12.1 SEC (10.9-12.4)
[2025-04-15 14:53] LABS: Alanine Aminotransferase 85 U/L (0-40); Albumin Level 3.7 g/dL (3.5-5.0); Alkaline Phosphatase 187 U/L (39-117); Anion Gap 15 (12-20); Aspartate Amino Transferase 38 U/L (5-37); Blood Urea Nitrogen 35 mg/dL (9-16); Calcium 10.0 mg/dL (8.4-10.2); Carbon Dioxide 29 mmol/L (22-29); Chloride 103 mmol/L (96-108); Creatinine Clr Calc Pharmacy 79.5; Estimated Glomerular Filt Rate > 60; Magnesium 2.3 mg/dL (1.6-2.6); Potassium 4.5 mmol/L (3.3-5.1); Sodium 142 mmol/L (135-145); Total Protein 7.6 g/dL (6.5-8.0)
[2025-04-15 15:00] LABS: Troponin-I High Sensitivity < 2.7 ng/L (<3.5-35.0)
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
--- OUTSIDE RECORDS SUMMARY | 2025-04-15 15:01 | XMS_ITS | Encounter Summary ---
Author Organization [facility] Address [address] [place] [address] Phone Care Team Providers Care Pigs Feet Cleaner Name Role Phone Willy Lord DO Primary Care Provider [phone] Encounter Details Date Type Department Care Team (Late st Contact Info) Description 05/28/2017 Procedure Pass [facility], [address] [facility], 2nd Floor, [address] [place] [address] Social History Tobacco Use Types Packs/Day Years Used Date Smoking Tobacco: Never Smokeless Tobacco: Never Alcohol Use Standard Drinks/Week Comments No 0 (1 standard drink = 0.6 oz pur e alcohol) Sex and Gender Information Value Date Recorded Sex Assigned at Not on file Legal Sex Male 10:53 AM EDT Gender Identity Not on file Sexual Orientation Not on file documented as of this encounter Plan of Treatment Not on file documented as of this encounter Visit Diagnoses Not on filedocumented in this encounter Care Teams Pigs Feet Cleaner Relationship Specialty Start Date End Date Willy Lord DO [address] [facility] [address] [place] [address] PCP - General Internal Medicine 01/08/17 documented as of this encounter Additional Source Comments The information contained in this document represents components of the legal health record. It is not the complete legal health record.[facility]
--- OUTSIDE RECORDS SUMMARY | 2025-04-15 15:01 | XMS_ITS | Encounter Summary ---
Author Organization [facility] Address [address] [place] [address] Phone Care Team Providers Care Cooker Chip Name Role Phone Willy Lord DO Primary Care Provider Encounter Details Date Type Department Care Team (Late st Contact Info) Description 02/02/2017 Procedure Pass [facility] [address] [place] [address] Social History Tobacco Use Types Packs/Day Years [...] on filedocumented in this encounter Care Teams Cooker Chip Relationship Specialty Start Date End Date Willy Lord DO [address] [place] [address] PCP - General Internal Medicine 01/08/17 documented as of this encounter Additional Source Comments The information contained in this document represents components of the legal health record. It is not the complete legal health record.[facility]
--- OUTSIDE RECORDS SUMMARY | 2025-04-15 15:01 | XMS_ITS | Encounter Summary ---
Author Organization [facility] Address [address] [place] [address] Care Team Providers Care Mold Insert Changer Name Role Phone Cinthya Jones MD Primary Care Provider + Encounter Details Date Type Department Care Team (Late st Contact Info) Description 08/23/2024 Lab Requisition [facility] - Main Lab [address] [place] [address] Cinthya Jones MD [address] [id number] Fever, unspecified Social History Tobacco Use Types Packs/Day Years Used Date Smoking Tobacco: Never Assessed Sex and Gender Information Value Date Recorded Sex Assigned at Not on file Legal Sex Male 6:36 AM EST Gender Identity Not on file Sexual Orientation Not on file documented as of this encounter Plan of Treatment Not on file documented as of this encounter Procedures Procedure Name Priority Date/Time Associated Diagnosis Comments [id number], RSV, FLU A AND B QUALITATIVE RT-PCR, LOCAL REFERENCE LAB Routine 08/22/2024 12:00 AM EST Fever, unspecified documented in this encounter Results * (ABNORMAL) [id number], RSV, Influenza A and B qualitative RT-PCR (08/22/2024 12:00 AM EST) SARS COV-2 Not Detected Not Detected LAB MOLECULAR DIAGNOSTICS METHOD 08/23/2024 1:42 PM EST [facility] Comment: Disclaimer: The manner in which this information is used to guide patient care is the responsibility of the healthcare provider. Testing was performed using the [employer] m SARS-CoV-2 test. This test has been authorized by FDA under an Emergency Use Authorization (EUA). This test is only authorized for the duration of time the declaration that circumstances exist justifying the authorization of the emergency use of in vitro diagnostic tests for detection of SARS-CoV-2 virus and/or diagnosis of COVID-19 infection under section 564(b)(1) of the Act, 21 U.S.C. 360bbb- 3(b)(1), unless the authorization is terminated or revoked sooner. Fact sheet for Healthcare Providers can be found at: https://www.fda.gov/media/537179/download Fact sheet for Patients can be found at: https://www.fda.gov/media/683698/download Influenza A PCR Detected(A ) Not Detected LAB MOLECULAR DIAGNOSTICS METHOD 08/23/2024 1:42 PM EST [facility] Comment:This patient is posi tive for influenza A. If the patient is admitted, please order the Respiratory Virus Panel PCR (Epic ID: [id number]) so our lab can subtype the influenza A, per CDC recommendations. Influenza B PCR Not Detected Not Detected LAB MOLECULAR DIAGNOSTICS METHOD 08/23/2024 1:42 PM EST [facility] RSV PCR Not Detected Not Detected LAB MOLECULAR DIAGNOSTICS METHOD 08/23/2024 1:42 PM [facility] Swab Nasopharyngeal structure / Unknown Non-blood Collection / Unknown 08/22/2024 08/23/2024 10:42 AM EST Cinthya Jones MD LAB MICROBIOLOGY - GENER AL ORDERABLES Final Result [facility] [address] [place] [address], documented in this encounter Visit Diagnoses Diagnosis Fever, unspecified documented in this encounter Additional Health Concerns Infection Onset Date Last Indicated Resolved Time Influenza 08/22/2024 08/22/2024 09/15/2024 7:06 PM EDT Respiratory Rule-Out 08/23/2024 08/22/2024 025 1:42 PM EST documented as of this encounter Care Teams Mold Insert Changer Relationship Specialty Start Date End Date Cinthya Jones MD [address] [place] [address] PCP - General Family Medicine 07/06/24 documented as of this encounter
--- OUTSIDE RECORDS SUMMARY | 2025-04-15 15:01 | XMS_ITS | Clinical Summary ---
Author Organization [address] [facility] Address [address] [place] [address] Phone Care Team Providers Care Curtain Stitcher Name Role Phone Cinthya Jones MD Primary Care Provider + Encounters Date Type Department Care Team Description 04/15/2025 Lab Requisition [facility] - Main Lab [address] [place] [address] Cinthya Jones MD Personal history of traumatic brain injury from Last 3 Months Social History Tobacco Use Types Packs/Day Years Used Date Smoking Tobacco: Never Assessed Sex and Gender Information Value Date Recorded Sex Assigned at Not on file Legal Sex Male 6:36 AM EST Gender Identity Not on file Sexual Orientation Not on file Plan of Treatment Health Maintenance Due Date Last Done Comments Colorectal Cancer Screening: Colonoscopy 1954 DTaP,Tdap,and Td Vaccines (1 - Tdap) 1973 Pneumococcal Vaccine: 50+ Ye ars (1 of 1 - PCV) 2004 Zoster Vaccines (1 of 2) 2004 Abdominal Aortic Aneurysm (A AA) Screen 05/24/2022 Falls Risk Assessment 05/24/2022 Hepatitis C Screening 05/24/2022 Medicare Annual Wellness Visit 05/24/2022 Social Influencers of Health Screening 05/24/2022 Depression Screening 06/21/2024 COVID-19 Vaccine (1 - 2023-2 5 season) 2025 Influenza Vaccine (#1) 2025 Cholesterol Screening (Lipid Panel) 11/06/2029 11/06/2024 RSV Immunization Adult Patie nts (1 - 1-dose 75+ series) 2029 HIB Vaccines Aged Out No longer eligi ble based on patient's age to complete this topic HPV Vaccines Aged Out No longer eligi ble based on patient's age to complete this topic Hepatitis A Vaccines Aged Out No long er eligible based on patient's age to complete this topic Hepatitis B Vaccines Aged Out No long er eligible based on patient's age to complete this topic IPV Vaccines Aged Out No longer eligi ble based on patient's age to complete this topic MMR Vaccines Aged Out No longer eligi ble based on patient's age to complete this topic Meningococcal ACWY Vaccine Aged Out N o longer eligible based on patient's age to complete this topic Meningococcal B Vaccine Aged Out No l onger eligible based on patient's age to complete this topic RSV Immunization Patients Un dia 20 months Aged Out No longer eligible b ased on patient's age to complete this topic Varicella Vaccines Aged Out No longer eligible based on patient's age to complete this topic Procedures Procedure Name Priority Date/Time Associated Diagnosis Comments BASIC METABOLIC PANEL Routine 04/15/2025 5:33 AM EDT Personal history of traumatic brain injury COMPLETE BLOOD COUNT Routine 04/15/2025 5:33 AM EDT Personal history of traumatic brain injury LIPID PANEL WITH REFLEX TO DIRECT LDL Routine 11/06/2024 10:35 AM EDT Unspecified convulsions (CMS/HCC V24, CMS/HCC V28) Other senior care (current) drug therapy Benign prostatic hyperplasia without lower urinary tract symptoms Encounter for screening for malignant neoplasm of prostate from Last 3 Months or Most Recently Relevant to Health Maintenance Results * (ABNORMAL) Complete blood count (04/15/2025 5:33 AM EDT) WBC 7.8 4.8 - 10.8 K/mcL LAB HEMETOLOGY METHOD 04/15/2025 9:54 AM EDT [facility] RBC 4.20(L) 4.50 - 5.50 M/mcL LAB HEMETOLOGY METHOD 04/15/2025 9:54 AM EDT [facility] Hemoglobin 12.2(L) 13.5 - 17.5 g/dL LAB HEMETOLOGY METHOD 04/15/2025 9:54 AM EDT [facility] Hematocrit 39.7(L) 42.0 - 54.0 % LAB HEMETOLOGY METHOD 04/15/2025 9:54 AM EDT [facility] MCV 95.4 79.0 - 98.0 FL LAB HEMETOLOGY METHOD 04/15/2025 9:54 AM EDT [facility] MCH 29.3 27.0 - 32.0 pcg LAB HEMETOLOGY METHOD 04/15/2025 9:54 AM EDT [facility] MCHC 30.7(L) 32.0 - 37.0 g/dL LAB HEMETOLOGY METHOD 04/15/2025 9:54 AM EDT [facility] RDW 14.2 11.0 - 15.0 % LAB HEMETOLOGY METHOD 04/15/2025 9:54 AM EDT [facility] Platelets 110(L) 130 - 400 K/mcL LAB HEMETOLOGY METHOD 04/15/2025 9:54 AM EDT [facility] MPV 9.9 7.0 - 11.0 FL LAB HEMETOLOGY METHOD 04/15/2025 9:54 AM EDT [facility] NRBC 0.0 <1.0 % LAB [facility] NRBC Absolute 0.00 <0.10 K/mcL LAB HEMETOLOGY METHOD 04/15/2025 9:54 AM EDT [facility] Blood Venous blood specimen / Unknown Venipuncture / Unknown 04/15/2025 5:33 AM EDT 04/15/2025 9:00 AM EDT us Cinthya Jones MD LAB BLOOD ORDERABLES Fin al Result [facility] [address] [place] [address], * (ABNORMAL) Basic metabolic panel (04/15/2025 5:33 AM EDT) Sodium 140 133 - 145 mmol/L LAB CHEMISTRY METHOD 04/15/2025 9:38 AM [facility] Potassium 4.4 3.5 - 5.5 mmol/L LAB CHEMISTRY METHOD 04/15/2025 9:38 AM [facility] Chloride 106 96 - 110 mmol/L LAB CHEMISTRY METHOD 04/15/2025 9:38 AM [facility] CO2 30 21 - 32 mmol/L LAB CHEMISTRY METHOD 04/15/2025 9:38 AM [facility] Anion Gap 4 3 - 11 LAB CHEMISTRY METHOD 04/15/2025 9:38 AM [facility] Glucose 73 70 - 100 mg/dL LAB CHEMISTRY METHOD 04/15/2025 9:38 AM [facility] BUN 35(H) 5 - 25 mg/dL LAB CHEMISTRY METHOD 04/15/2025 9:38 AM [facility] Creatinine 0.80 0.70 - 1.30 mg/dL LAB CHEMISTRY METHOD 04/15/2025 9:38 AM [facility] eGFR 95 >=60 mL/min/1. 73m2 LAB CHEMISTRY METHOD 04/15/2025 9:38 AM [facility] Comment:Calculation based on the Chronic Kidney Disease Epidemiology Collaboration (CKD-EPI) equation refit without adjustment for race. BUN/Creatinine Ratio 43.8 LAB CHEMISTRY METHOD 04/15/2025 9:38 AM [facility] Calcium 9.5 8.5 - 10.5 mg/dL LAB CHEMISTRY METHOD 04/15/2025 9:38 AM [facility] Blood Venous blood specimen / Unknown Venipuncture / Unknown 04/15/2025 5:33 AM EDT 04/15/2025 9:00 AM EDT Cinthya Jones MD LAB BLOOD ORDERABLES Fin al Result [facility] [address] [place] [address], [place] [phone] * Lipid panel with reflex to direct LDL (11/06/2024 10:35 AM EDT) [facility] Signature Cholesterol 158 0 - 200 mg/dL LAB CHEMISTRY METHOD 11/06/2024 5:35 PM EDT [facility] Triglycerides 126 0 - 150 mg/dL LAB CHEMISTRY METHOD 11/06/2024 5:35 PM EDT [facility] HDL 40 >=40 mg/dL LAB CHEMISTRY METHOD 11/06/2024 5:35 PM EDT [facility] LDL Calculated 93 0 - 100 mg/dL LAB CHEMISTRY METHOD 11/06/2024 5:35 PM EDT [facility] VLDL Cholesterol Alexander 25.2 mg/dL LAB CHEMISTRY METHOD 11/06/2024 5:35 PM EDT [facility] Non HDL Chol. (LDL+VLDL) 118 <145 mg/dL LAB CHEMISTRY METHOD 11/06/2024 5:35 PM EDT [facility] Chol/HDL Ratio 4.0 0.0 - 4.4 LAB CHEMISTRY METHOD 11/06/2024 5:35 PM EDT [facility] Blood Venous blood specimen / Unknown Venipuncture / Unknown 11/06/2024 10:35 AM EDT 11/06/2024 1:18 PM EDT Cinthya Jones MD LAB BLOOD ORDERABLES Fin al Result [facility] [address] [place] [address], [place] [phone] from Last 3 Months or Most Recently Relevant to Health Maintenance Insurance [facility] MEDICARE Advance Directives Documents on File Type Date Recorded Patient Auto Phone Installer Expl [facility] Health Care Decision (hx) 12/30/2021 AD HOOVER DIRECTIVE Care Teams Curtain Stitcher Relationship Specialty Start Date End Date ElderCinthya MD [address] [address] PCP - General Family Medicine 07/06/24
--- OUTSIDE RECORDS SUMMARY | 2025-04-15 15:01 | XMS_ITS | Clinical Summary ---
Author Organization [facility] Address [address] [place] [address], [place] [address] Care Team Providers Care Dispatch Machine Runner Name Role Phone Melania Casey MD Primary Care Provider [phone] Allergies No known active allergies Medications celecoxib (CeleBREX) 100 MG capsule 08/30/2020 Active busPIRone (BUSPAR) 10 MG tablet 08/08/2020 Active folic acid (FOLVITE) 1 MG tablet Take 1 mg by mouth daily Active Docusate Sodium (DSS) 100 MG capsule Take 100 mg by mouth 2 (two) times a day if needed 09/29/2017 Active cyclobenzaprine (FLEXERIL) 5 MG tablet 08/07/2020 Active latanoprost (XALATAN) 0.005 % ophthalmic solution 08/28/2020 Active tamsulosin (FLOMAX) 0.4 MG 24 hr capsule 08/06/2020 Activ e senna (SENOKOT) 8.6 MG tablet Take 2 tablets by mouth 2 (two) times a day if needed 09/29/2017 Active polyethylene glycol (GLYCOLAX) 17 GM/SCOOP powder Take 17 g by mouth 09/29/2017 Active levETIRAcetam (KEPPRA) 750 MG tablet Take 750 mg by mouth twice a day 09/29/2017 Active furosemide (LASIX) 40 MG tablet Take 40 mg by mouth daily Active timolol (TIMOPTIC) 0.5 % ophthalmic solution 08/27/2020 Active traMADol (ULTRAM) 50 MG tablet Take 50 mg by mouth every 6 (six) hours if needed 09/29/2017 Active ursodiol (ACTIGALL) 300 MG capsule Take 300 mg by mouth 3 times a day 09/29/2017 Active valproic acid (DEPAKENE) 250 MG/5ML syrup 08/03/2020 Active Active Problems Problem Noted Date Diagnosed Date Edema of lower extremity 09/24/2017 Overview (09/05/2020): Last Assessment & Plan: Significant lower extremity edema that causes him [...] need for albumin tomorrow 09/30. Hypertension 06/23/2017 Overview (09/05/2020): Last Assessment & Plan: History of HTN and ectopy. Had been on labetalol and HCTZ but HCP reports these had been stopped. HoTN 09/26 after SPA + Lasix. VSS after SPA + Lasix on 09/27. 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 Social History Tobacco Use Types Packs/Day Years Used Date Smoking Tobacco: Never Smokeless Tobacco: Never Alcohol Use Standard Drinks/Week Comments Never 0 (1 standard drink = 0.6 oz pur e alcohol) Sex and Gender Information Value Date Recorded Sex Assigned at Not on file Legal Sex Male 5:21 PM EST Gender Identity Not on file Sexual Orientation Not on file Last Filed Vital Signs Vital Sign Reading Time Taken Comments Blood Pressure 107/65 09/05/2020 2:13 PM EDT Pulse - - Temperature - - Respiratory Rate - - Oxygen Saturation 97% 09/05/2020 2:13 PM EDT Inhaled Oxygen Concentration - - Weight 61.7 kg (136 lb) 09/05/2020 2:13 PM EDT Height - - Body Mass Index - - Plan of Treatment Health Maintenance Due Date Last Done Comments Pneumococcal Vaccine: 50+ Ye ars (1 of 2 - PCV) 1973 Colorectal Cancer Screening: Annual FOBT 12/10/2003 Colorectal Cancer Screening: Colonoscopy 12/10/2003 Colorectal Cancer Screening: Sigmoidoscopy 12/10/2003 Influenza Vaccine (#1) 2025 Hepatitis B Vaccine Aged Out No longe r eligible based on patient's age to complete this topic Insurance [facility] [place] [address] [address] [place] [address] Medicare Care Teams Dispatch Machine Runner Relationship Specialty Start Date End Date Melania Casey MD [facility] [address] [place] [address] PCP - General Geriatric Medicine 08/14/20
--- OUTSIDE RECORDS SUMMARY | 2025-04-15 15:01 | XMS_ITS | Encounter Summary ---
Author Organization [facility] Address [address] [place] [address] Phone Care Team Providers Care Informatica Mdm Architect Name Role Phone Willy Lord DO Primary Care Provider [phone] Encounter Details Date Type Department Care Team (Late st Contact Info) Description 05/04/2017 Procedure Pass [facility] [facility], 6th [place] [address] Social History Tobacco Use Types Packs/Day Years [...] on filedocumented in this encounter Care Teams Informatica Mdm Architect Relationship Specialty Start Date End Date Willy Lord DO [address] [place] [address] [address] [place] [address] PCP - General Internal Medicine 01/08/17 documented as of this encounter Additional Source Comments The information contained in this document represents components of the legal health record. It is not the complete legal health record.[facility]
--- OUTSIDE RECORDS SUMMARY | 2025-04-15 15:01 | XMS_ITS | Encounter Summary ---
Author Organization [facility] Address [address] [place] [address] [address] [place] [address] Phone Care Team Providers Care Truck Engine Assembler Name Role Phone Willy Lord DO Primary Care Provider [phone] Encounter Details Date Type Department Care Team (Late st Contact Info) Description 04/05/2017 Documentation [facility] [address] [facility], 9th [address], [address] [place] [address] Prema Koch [address] [place] [address] [email or web address] Social History Tobacco Use Types Packs/Day Years [...] on filedocumented in this encounter Care Teams Truck Engine Assembler Relationship Specialty Start Date End Date Willy Lord DO [address] [place] [address] [address] [place] [address] PCP - General Internal Medicine 01/08/17 documented as of this encounter Additional Source Comments The information contained in this document represents components of the legal health record. It is not the complete legal health record.[facility]
--- OUTSIDE RECORDS SUMMARY | 2025-04-15 15:01 | XMS_ITS | Encounter Summary ---
Author Organization [facility] Address [address] [facility] [address] [place] [address] Phone Care Team Providers Care Fire Prevention Specialist Name Role Phone Willy Lord DO Primary Care Provider [phone] Encounter Details Date Type Department Care Team (Late st Contact Info) Description 09/23/2017 Procedure Pass [facility], [address] [facility], 6th [place] [address] Social History Tobacco Use Types Packs/Day Years [...] on filedocumented in this encounter Care Teams Fire Prevention Specialist Relationship Specialty Start Date End Date Willy Lord DO [address] [place] [address] [address] [place] [address] PCP - General Internal Medicine 01/08/17 documented as of this encounter Additional Source Comments The information contained in this document represents components of the legal health record. It is not the complete legal health record.[facility]
--- OUTSIDE RECORDS SUMMARY | 2025-04-15 15:01 | XMS_ITS | Encounter Summary ---
Author Organization [facility] Address [address] [place] [address] Phone Care Team Providers Care Speech Therapy Assistant Name Role Phone Willy Lord DO Primary Care Provider [phone] Encounter Details Date Type Department Care Team (Late st Contact Info) Description 02/02/2017 Procedure Pass [facility] [address] [place] [address] Social History Tobacco Use Types Packs/Day Years [...] on filedocumented in this encounter Care Teams Speech Therapy Assistant Relationship Specialty Start Date End Date Willy Lord DO [address] [facility] [address] [place] [address] PCP - General Internal Medicine 01/08/17 documented as of this encounter Additional Source Comments The information contained in this document represents components of the legal health record. It is not the complete legal health record.[facility]
--- OUTSIDE RECORDS SUMMARY | 2025-04-15 15:01 | XMS_ITS | Encounter Summary ---
Author Organization [facility] Address [address] [place] [address] Phone Care Team Providers Care Transit Operator Name Role Phone Willy Lord DO Primary Care Provider [phone] Encounter Details Date Type Department Care Team (Late st Contact Info) Description 06/03/[address] [place] [address] [facility], 2nd Floor, [address] [place] [address] Social History Tobacco Use Types Packs/Day Years [...] on filedocumented in this encounter Care Teams Transit Operator Relationship Specialty Start Date End Date Willy Lord DO [address] [facility] [address] [place] [address] PCP - General Internal Medicine 01/08/17 documented as of this encounter Additional Source Comments The information contained in this document represents components of the legal health record. It is not the complete legal health record.[facility]
--- OUTSIDE RECORDS SUMMARY | 2025-04-15 15:01 | XMS_ITS | Encounter Summary ---
Author Organization [facility] Address [address] [facility] [address] [place] [address] Phone Care Team Providers Care Power Plant Inspector Name Role Phone Willy Lord DO Primary Care Provider [phone] Encounter Details Date Type Department Care Team (Late st Contact Info) Description 02/02/2017 Procedure Pass [facility] [address] [place] [address] Social History Tobacco Use Types Packs/Day Years [...] on filedocumented in this encounter Care Teams Power Plant Inspector Relationship Specialty Start Date End Date Willy Lord DO [address] [place] [address] PCP - General Internal Medicine 01/08/17 documented as of this encounter Additional Source Comments The information contained in this document represents components of the legal health record. It is not the complete legal health record.[facility]
--- OUTSIDE RECORDS SUMMARY | 2025-04-15 15:01 | XMS_ITS | Encounter Summary ---
Author Organization [facility] Address [address] [facility] [address] [place] [address] Phone Care Team Providers Care Educational Program Assistant Name Role Phone Willy Lord DO Primary Care Provider [phone] Encounter Details Date Type Department Care Team (Late st Contact Info) Description 02/02/2017 Procedure Pass [facility] Imaging [address] [place] [address] Social History Tobacco Use Types Packs/Day Years [...] on filedocumented in this encounter Care Teams Educational Program Assistant Relationship Specialty Start Date End Date Willy Lord DO [address] [place] [address] PCP - General Internal Medicine 01/08/17 documented as of this encounter Additional Source Comments The information contained in this document represents components of the legal health record. It is not the complete legal health record.[facility]
--- OUTSIDE RECORDS SUMMARY | 2025-04-15 15:01 | XMS_ITS | Encounter Summary ---
Author Organization [facility] Address [address] [facility] [facility] [address] [place] [address] Phone Care Team Providers Care Kitchen Worker Name Role Phone Willy Lord DO Primary Care Provider [phone] Encounter Details Date Type Department Care Team (Late st Contact Info) Description 07/11/2017 Telephone [facility] [address] [place] [phone] Nabila Hollis RN [address] [place] [phone] [email or web address] Social History Tobacco Use Types Packs/Day Years [...] on filedocumented in this encounter Care Teams Kitchen Worker Relationship Specialty Start Date End Date Willy Lord DO [address] [facility] [address] [place] [address] PCP - General Internal Medicine 7/21/17 documented as of this encounter Additional Source Comments The information contained in this document represents components of the legal health record. It is not the complete legal health record.[facility]
--- OUTSIDE RECORDS SUMMARY | 2025-04-15 15:01 | XMS_ITS | Encounter Summary ---
Author Organization [facility] Address [address] [place] [address] Care Team Providers Care Print Finishing Worker Name Role Phone Cinthya Jones MD Primary Care Provider + Encounter Details Date Type Department Care Team (Late st Contact Info) Description 04/24/[address] [facility] - Main Lab [address] [place] [address] Cinthya Jones MD [address] [address] Vitamin D deficiency, unspecified Social History Tobacco Use Types Packs/Day [...] Procedure Name Priority Date/Time Associated Diagnosis Comments TRAVEL PHLEBOTOMY FEE Routine 04/24/2024 7:29 AM EST Vitamin D deficiency, unspecified VITAMIN D 25 HYDROXY Routine 04/24/2024 7:29 AM EST Vitamin D deficiency, unspecified documented in this encounter Results * Travel phlebotomy fee (04/24/2024 7:29 AM EST) [facility] TRAVEL PHLEBOTOMY FEE Completed 04/24/2024 12:01 PM EST [facility] Blood Venous blood specimen / Unknown Venipuncture / Unknown 04/24/2024 7:29 AM EST 04/24/2024 11:04 AM EST Cinthya Jones MD LAB BLOOD ORDERABLES Fin al Result Performing Organization Address [facility]/ZIP Co de Phone Number [facility] [address] [place] [address], [place] [phone] * (ABNORMAL) Vitamin D 25 hydroxy (04/24/2024 7:29 AM EST) Vit D, 25-Hydroxy 25.5(L) 30.0 - 80.0 ng/mL LAB CHEMISTRY METHOD 04/24/2024 12:06 PM EST [facility] Blood Venous blood specimen / Unknown Venipuncture / Unknown 04/24/2024 7:29 AM EST 04/24/2024 11:04 AM EST Cinthya Jones MD LAB BLOOD ORDERABLES Fin al Result Performing Organization Address [facility] Co de Phone Number [facility] [address] [place] [address], documented in this encounter Visit Diagnoses Diagnosis Vitamin D deficiency, unspecified documented in this encounter Additional Health Concerns Infection Onset Date Last Indicated Resolved Time Influenza 08/22/2024 08/22/2024 09/15/2024 7:06 PM EDT Respiratory Rule-Out 08/23/2024 08/22/2024 025 1:42 PM EST documented as of this encounter Care Teams Print Finishing Worker Relationship Specialty Start Date End Date Cinthya Jones MD [address] [place] [address] PCP - General Family Medicine 07/06/24 documented as of this encounter
--- OUTSIDE RECORDS SUMMARY | 2025-04-15 15:01 | XMS_ITS | Encounter Summary ---
Author Organization [facility] Address [address] [place] [address] Phone Care Team Providers Care Field Auditor Name Role Phone Willy Lord DO Primary Care Provider [phone] Encounter Details Date Type Department Care Team (Late st Contact Info) Description 02/02/2017 Procedure Pass [facility] Imaging [address] [place] [address] Social History Tobacco Use Types Packs/Day Years [...] on filedocumented in this encounter Care Teams Field Auditor Relationship Specialty Start Date End Date Willy Lord DO [address] [facility] [facility] [address] [place] [address] PCP - General Internal Medicine 01/08/17 documented as of this encounter Additional Source Comments The information contained in this document represents components of the legal health record. It is not the complete legal health record.[facility]
--- OUTSIDE RECORDS SUMMARY | 2025-04-15 15:01 | XMS_ITS | Encounter Summary ---
Author Organization [facility] Address [address] [place] [address] Care Team Providers Care Housing Manager Name Role Phone Cinthya Jones MD Primary Care Provider + Encounter Details Date Type Department Care Team (Late st Contact Info) Description 11/06/2024 Lab Requisition [facility] - Main Lab [address] [facility] [place] [address] Cinthya Jones MD [address] [phone] Unspecified convulsions (CMS/HCC V24, CMS/HCC V28); Other prison (current) drug therapy; Benign prostatic hyperplasia without lower urinary tract symptoms; Encounter for screening for malignant neoplasm of prostate Social History Tobacco Use Types Packs/Day Years [...] Procedure Name Priority Date/Time Associated Diagnosis Comments PROSTATE SPECIFIC ANTIGEN SCREEN Routine 11/06/2024 10:35 AM EDT Unspecified convulsions (CMS/HCC V24, CMS/HCC V28) 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 Benign prostatic hyperplasia without lower urinary tract symptoms Encounter for screening for malignant neoplasm of prostate LIPID PANEL WITH REFLEX TO DIRECT LDL Routine 11/06/2024 10:35 AM EDT Unspecified convulsions (CMS/HCC V24, CMS/HCC V28) Other prison (current) drug therapy Benign prostatic hyperplasia without lower urinary tract symptoms Encounter for screening for malignant neoplasm of prostate LEVETIRACETAM LEVEL Routine 11/06/2024 1 0:35 AM EDT Unspecified convulsions (CMS/HCC V24, CMS/HCC V28) Other prison (current) drug therapy Benign prostatic hyperplasia without lower urinary tract symptoms Encounter for screening for malignant neoplasm of prostate COMPLETE BLOOD COUNT Routine 11/06/2024 10:35 AM EDT Unspecified convulsions (CMS/HCC V24, CMS/HCC V28) Other prison (current) drug therapy Benign prostatic hyperplasia without lower urinary tract symptoms Encounter for screening for malignant neoplasm of prostate COMPREHENSIVE METABOLIC PANEL Routine 11/06/2024 10:35 AM EDT Unspecified convulsions (CMS/HCC V24, CMS/HCC V28) Other prison (current) drug therapy Benign prostatic hyperplasia without lower urinary tract symptoms Encounter for screening for malignant neoplasm of prostate documented in this encounter Results * Levetiracetam level (11/06/2024 10:35 AM EDT) [facility] Levetiracetam 43.3 3.0 - 60.0 ug/mL 11/09/2024 4:53 AM EDT [facility] Comment: Steady state trough serum or plasma levels following doses of 1000 to 3000 mg/Day: 3 to 37 ug/mL. The same dosage regimen will typically result in peak levels of 10 to 60 ug/mL, at approximately 1.5 hours post dose. If applicable, any drug confirmation testing reported here was developed and the performance characteristics determined by [facility]. This confirmation testing has not been cleared or approved by the FDA. The laboratory is regulated under CLIA as qualified to perform high-complexity testing. This test is used for patient testing purposes. It should not be regarded as investigational or for research. Test performed at [facility], [address], [place] [address] Lori Stanley MD, PhD - Residence Life Coordinator Blood Venous blood specimen / Unknown Venipuncture / Unknown 11/06/2024 10:35 AM EDT 11/06/2024 1:18 PM EDT Cinthya Jones MD LAB BLOOD ORDERABLES Fin al [place] [address] [address] [place] [address] * Prostate specific antigen screen (11/06/2024 10:35 AM EDT) PSA 1.36 0.00 - 4.00 ng/mL LAB CHEMISTRY METHOD 11/06/2024 5:35 PM EDT [facility] Blood Venous blood specimen / Unknown Venipuncture / Unknown 11/06/2024 10:35 AM EDT 11/06/2024 1:18 PM EDT Narrative [facility] - 11/06/2024 5:35 PM EDT The Siemens Advia Centaur Chemiluminescent Immunoassay is used. Results obtained with different assay methods or kits cannot be used interchangeably. Results cannot be interpreted as absolute evidence of the presence or absence of malignant disease. Cinthya Jones MD LAB BLOOD ORDERABLES Fin al Result [facility] [address] [place] [address], [place] [phone] * Lipid panel with reflex to direct LDL (11/06/2024 10:35 AM EDT) Cholesterol 158 0 - 200 mg/dL LAB CHEMISTRY METHOD 11/06/2024 5:35 PM EDT [facility] Triglycerides 126 0 - 150 mg/dL LAB CHEMISTRY METHOD 11/06/2024 5:35 PM EDT [facility] HDL 40 >=40 mg/dL LAB CHEMISTRY METHOD 11/06/2024 5:35 PM EDT [facility] LDL Calculated 93 0 - 100 mg/dL LAB CHEMISTRY METHOD 11/06/2024 5:35 PM EDT [facility] VLDL Cholesterol Alexander 25.2 mg/dL LAB CHEMISTRY METHOD 11/06/2024 5:35 PM EDT [facility] Non HDL Chol. (LDL+VLDL) 118 <145 mg/dL LAB CHEMISTRY METHOD 11/06/2024 5:35 PM EDT [facility] Chol/HDL Ratio 4.0 0.0 - 4.4 LAB CHEMISTRY METHOD 11/06/2024 5:35 PM [facility] Blood Venous blood specimen / Unknown Venipuncture / Unknown 11/06/2024 10:35 AM EDT 11/06/2024 1:18 PM EDT us Cinthya Jones MD LAB BLOOD ORDERABLES Fin al Result [facility] [address] [place] [address], [place] [phone] * (ABNORMAL) Comprehensive metabolic panel (11/06/2024 10:35 AM EDT) Sodium 140 133 - 145 mmol/L LAB CHEMISTRY METHOD 11/06/2024 5:35 PM [facility] Potassium 4.0 3.5 - 5.5 mmol/L LAB CHEMISTRY METHOD 11/06/2024 5:35 PM [facility] Chloride 104 96 - 110 mmol/L LAB CHEMISTRY METHOD 11/06/2024 5:35 PM [facility] CO2 30 21 - 32 mmol/L LAB CHEMISTRY METHOD 11/06/2024 5:35 PM [facility] Anion Gap 6 3 - 11 LAB CHEMISTRY METHOD 11/06/2024 5:35 PM [facility] Glucose 136(H) 70 - 100 mg/dL LAB CHEMISTRY METHOD 11/06/2024 5:35 PM [facility] BUN 16 5 - 25 mg/dL LAB CHEMISTRY METHOD 11/06/2024 5:35 PM [facility] Creatinine 0.78 0.70 - 1.30 mg/dL LAB CHEMISTRY METHOD 11/06/2024 5:35 PM [facility] eGFR 97 >=60 mL/min/1. 73m2 LAB CHEMISTRY METHOD 11/06/2024 5:35 PM [facility] Comment:Calculation based on the Chronic Kidney Disease Epidemiology Collaboration (CKD-EPI) equation refit without adjustment for race. BUN/Creatinine Ratio 20.5 LAB CHEMISTRY METHOD 11/06/2024 5:35 PM [facility] Calcium 9.4 8.5 - 10.5 mg/dL LAB CHEMISTRY METHOD 11/06/2024 5:35 PM [facility] AST (SGOT) 12 10 - 42 unit/L LAB CHEMISTRY METHOD 11/06/2024 5:35 PM [facility] ALT (SGPT) 25 10 - 60 unit/L LAB CHEMISTRY METHOD 11/06/2024 5:35 PM [facility] Alkaline Phosphatase 111 42 - 121 unit/L LAB CHEMISTRY METHOD 11/06/2024 5:35 PM [facility] Total Protein 6.3 6.0 - 8.0 g/dL LAB CHEMISTRY METHOD 11/06/2024 5:35 PM [facility] Albumin 3.0(L) 3.2 - 5.0 g/dL LAB CHEMISTRY METHOD 11/06/2024 5:35 PM [facility] Total Bilirubin 0.6 0.0 - 1.4 mg/dL LAB CHEMISTRY METHOD 11/06/2024 5:35 PM [facility] Blood Venous blood specimen / Unknown Venipuncture / Unknown 11/06/2024 10:35 AM EDT 11/06/2024 1:18 PM EDT us Cinthya Jones MD LAB BLOOD ORDERABLES Fin al Result [facility] [address] [place] [address], * (ABNORMAL) Complete blood count (11/06/2024 10:35 AM EDT) [facility] WBC 9.9 4.8 - 10.8 K/mcL LAB HEMETOLOGY METHOD 11/06/2024 3:09 PM EDT [facility] RBC 4.30(L) 4.50 - 5.50 M/mcL LAB HEMETOLOGY METHOD 11/06/2024 3:09 PM EDT [facility] Hemoglobin 13.5 13.5 - 17.5 g/dL LAB HEMETOLOGY METHOD 11/06/2024 3:09 PM [facility] Hematocrit 42.5 42.0 - 54.0 % LAB HEMETOLOGY METHOD 11/06/2024 3:09 PM [facility] MCV 98.2(H) 79.0 - 98.0 FL LAB HEMETOLOGY METHOD 11/06/2024 3:09 PM [facility] MCH 31.2 27.0 - 32.0 pcg LAB HEMETOLOGY METHOD 11/06/2024 3:09 PM [facility] MCHC 31.8(L) 32.0 - 37.0 g/dL LAB HEMETOLOGY METHOD 11/06/2024 3:09 PM [facility] RDW 13.0 11.0 - 15.0 % LAB HEMETOLOGY METHOD 11/06/2024 3:09 PM EDT [facility] Platelets 156 130 - 400 K/mcL LAB HEMETOLOGY METHOD 11/06/2024 3:09 PM [facility] MPV 9.1 7.0 - 11.0 FL LAB HEMETOLOGY METHOD 11/06/2024 3:09 PM [facility] NRBC 0.0 <1.0 % LAB HEMETOLOGY METHOD 11/06/2024 3:09 PM EDT [facility] NRBC Absolute 0.00 <0.10 K/mcL LAB HEMETOLOGY METHOD 11/06/2024 3:09 PM EDT [facility] Blood Venous blood specimen / Unknown Venipuncture / Unknown 11/06/2024 10:35 AM EDT 11/06/2024 1:18 PM EDT us Cinthya Jones MD LAB BLOOD ORDERABLES Fin al Result [facility] [address] [place] [address], documented in this encounter Visit Diagnoses Diagnosis Unspecified convulsions (CMS/HCC V24, CMS/HCC V28) 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
--- OUTSIDE RECORDS SUMMARY | 2025-04-15 15:01 | XMS_ITS | Encounter Summary ---
Author Organization [facility] Address [address] [place] [address] Phone Care Team Providers Care Barkeep Name Role Phone Willy Lord DO Primary Care Provider [phone] Encounter Details Date Type Department Care Team (Late st Contact Info) Description 05/31/2017 Procedure Pass [facility], [place] [address] [facility], [address] [place] [address] Social History Tobacco Use Types Packs/Day Years [...] on filedocumented in this encounter Care Teams Barkeep Relationship Specialty Start Date End Date Willy Lord DO [address] [facility] [address] [place] [address] PCP - General Internal Medicine 01/08/17 documented as of this encounter Additional Source Comments The information contained in this document represents components of the legal health record. It is not the complete legal health record.[facility]
--- OUTSIDE RECORDS SUMMARY | 2025-04-15 15:01 | XMS_ITS | Encounter Summary ---
Author Organization [facility] Address [address] [place] [address] Phone Care Team Providers Care Sourcing Coordinator Name Role Phone Willy Lord DO Primary Care Provider [phone] Encounter Details Date Type Department Care Team (Late st Contact Info) Description 02/02/2017 Procedure Pass [facility] Imaging [address] [place] [address] Social History Tobacco Use Types Packs/Day Years [...] on filedocumented in this encounter Care Teams Sourcing Coordinator Relationship Specialty Start Date End Date Willy Lord DO [address] [place] [address] PCP - General Internal Medicine 01/08/17 documented as of this encounter Additional Source Comments The information contained in this document represents components of the legal health record. It is not the complete legal health record.[facility]
--- OUTSIDE RECORDS SUMMARY | 2025-04-15 15:01 | XMS_ITS | Encounter Summary ---
Author Organization [facility] Address [address] [place] [address] Care Team Providers Care Sales Development Manager Name Role Phone Cinthya Jones MD Primary Care Provider + Encounter Details Date Type Department Care Team (Late st Contact Info) Description 08/19/2024 Lab Requisition [facility] - Main Lab [address] [place] [address] Cinthya Jones MD [address] [phone] Other residential (current) drug therapy Social History Tobacco Use Types Packs/Day Years [...] Associated Diagnosis Comments BASIC METABOLIC PANEL Routine 08/21/2024 10:03 AM EST Other residential (current) drug therapy documented in this encounter Results * (ABNORMAL) Basic metabolic panel (08/21/2024 10:03 AM EST) Sodium 143 133 - 145 mmol/L LAB CHEMISTRY METHOD 08/21/2024 1:35 PM EST [facility] Potassium 3.9 3.5 - 5.5 mmol/L LAB CHEMISTRY METHOD 08/21/2024 1:35 PM EST [facility] Chloride 108 96 - 110 mmol/L LAB CHEMISTRY METHOD 08/21/2024 1:35 PM EST [facility] CO2 27 21 - 32 mmol/L LAB CHEMISTRY METHOD 08/21/2024 1:35 PM EST [facility] Anion Gap 8 3 - 11 LAB CHEMISTRY METHOD 08/21/2024 1:35 PM [facility] Glucose 111(H) 70 - 100 mg/dL LAB CHEMISTRY METHOD 08/21/2024 1:35 PM [facility] BUN 22 5 - 25 mg/dL LAB CHEMISTRY METHOD 08/21/2024 1:35 PM EST [facility] Creatinine 0.72 0.70 - 1.30 mg/dL LAB CHEMISTRY METHOD 08/21/2024 1:35 PM [facility] eGFR 99 >=60 mL/min/1. 73m2 LAB CHEMISTRY METHOD 08/21/2024 1:35 PM EST [facility] Comment:Calculation based on the Chronic Kidney Disease Epidemiology Collaboration (CKD-EPI) equation refit without adjustment for race. BUN/Creatinine Ratio 30.6 LAB CHEMISTRY METHOD 08/21/2024 1:35 PM [facility] Calcium 9.9 8.5 - 10.5 mg/dL LAB CHEMISTRY METHOD 08/21/2024 1:35 PM [facility] Blood Venous blood specimen / Unknown Venipuncture / Unknown 08/21/2024 10:03 AM EST 08/21/2024 11:26 AM EST us Cinthya Jones MD LAB BLOOD ORDERABLES Fin al Result [facility] [address] [place] [address], documented in this encounter Visit Diagnoses Diagnosis Other residential (current) drug therapy documented in this encounter Additional Health Concerns Infection Onset Date Last Indicated Resolved Time Influenza 08/22/2024 08/22/2024 09/15/2024 7:06 PM EDT Respiratory Rule-Out 08/23/2024 08/22/2024 025 1:42 PM EST documented as of this encounter Care Teams Sales Development Manager Relationship Specialty Start Date End Date Cinthya Jones MD [address] [place] [address] PCP - General Family Medicine 07/06/24 documented as of this encounter
--- OUTSIDE RECORDS SUMMARY | 2025-04-15 15:01 | XMS_ITS | Encounter Summary ---
Author Organization [facility] Address [address] [facility] [address] [place] [address] Phone Care Team Providers Care Human Resources Partner Name Role Phone Willy Lord DO Primary Care Provider [phone] Encounter Details Date Type Department Care Team (Late st Contact Info) Description 09/23/2017 Procedure Pass [facility], [place] [address] [facility] [place] [address] Social History Tobacco Use Types Packs/Day Years [...] on filedocumented in this encounter Care Teams Human Resources Partner Relationship Specialty Start Date End Date Willy Lrod DO [address] [place] [address] [address] [place] [address] PCP - General Internal Medicine 01/08/17 documented as of this encounter Additional Source Comments The information contained in this document represents components of the legal health record. It is not the complete legal health record.[facility]
--- OUTSIDE RECORDS SUMMARY | 2025-04-15 15:01 | XMS_ITS | Encounter Summary ---
Author Organization [facility] Address [address] [place] [address] Phone Care Team Providers Care Animal Husbandry Manager Name Role Phone Willy Lord DO Primary Care Provider [phone] Encounter Details Date Type Department Care Team (Late st Contact Info) Description 02/02/2017 Procedure Pass [facility] Imaging [address] [place] [address] Social History Tobacco Use Types Packs/Day Years [...] on filedocumented in this encounter Care Teams Animal Husbandry Manager Relationship Specialty Start Date End Date Willy Lord DO [address] [facility] [address] [place] [address] PCP - General Internal Medicine 01/08/17 documented as of this encounter Additional Source Comments The information contained in this document represents components of the legal health record. It is not the complete legal health record.[facility]
--- OUTSIDE RECORDS SUMMARY | 2025-04-15 15:01 | XMS_ITS | Encounter Summary ---
Author Organization [facility] Address [address] [place] [address] Care Team Providers Care Louver Door Assembler Name Role Phone Cinthya Jones MD Primary Care Provider + Encounter Details Date Type Department Care Team (Late st Contact Info) Description 04/15/2025 Lab Requisition [facility] - Main Lab [address] [place] [address] Cinthya Jones MD [address] [id number] Personal history of traumatic brain injury Social History Tobacco Use Types Packs/Day Years [...] Procedure Name Priority Date/Time Associated Diagnosis Comments COMPLETE BLOOD COUNT Routine 04/15/2025 5:33 AM EDT Personal history of traumatic brain injury BASIC METABOLIC PANEL Routine 04/15/2025 5:33 AM EDT Personal history of traumatic brain injury documented in this encounter Results * (ABNORMAL) Basic metabolic panel (04/15/2025 5:33 AM EDT) Sodium 140 133 - 145 mmol/L LAB CHEMISTRY METHOD 04/15/2025 9:38 AM EDT [facility] Potassium 4.4 3.5 - 5.5 mmol/L LAB CHEMISTRY METHOD 04/15/2025 9:38 AM EDT [facility] Chloride 106 96 - 110 mmol/L LAB CHEMISTRY METHOD 04/15/2025 9:38 AM [facility] CO2 30 21 - 32 mmol/L LAB CHEMISTRY METHOD 04/15/2025 9:38 AM [facility] Anion Gap 4 3 - 11 LAB CHEMISTRY METHOD 04/15/2025 9:38 AM [facility] Glucose 73 70 - 100 mg/dL LAB CHEMISTRY METHOD 04/15/2025 9:38 AM [facility] BUN 35(H) 5 - 25 mg/dL LAB CHEMISTRY METHOD 04/15/2025 9:38 AM [facility] Creatinine 0.80 0.70 - 1.30 mg/dL LAB CHEMISTRY METHOD 04/15/2025 9:38 AM [facility] eGFR 95 >=60 mL/min/1. 73m2 LAB CHEMISTRY METHOD 04/15/2025 9:38 AM [facility] Comment:Calculation based on the Chronic Kidney Disease Epidemiology Collaboration (CKD-EPI) equation refit without adjustment for race. BUN/Creatinine Ratio 43.8 LAB CHEMISTRY METHOD 04/15/2025 9:38 AM [facility] Calcium 9.5 8.5 - 10.5 mg/dL LAB CHEMISTRY METHOD 04/15/2025 9:38 AM [facility] Blood Venous blood specimen / Unknown Venipuncture / Unknown 04/15/2025 5:33 AM EDT 04/15/2025 9:00 AM EDT us Cinthya Jones MD LAB BLOOD ORDERABLES Fin al Result [facility] [address] [place] [address], * (ABNORMAL) Complete blood count (04/15/2025 5:33 AM EDT) WBC 7.8 4.8 - 10.8 K/[facility] LAB HEMETOLOGY METHOD 04/15/2025 9:54 AM [facility] RBC 4.20(L) 4.50 - 5.50 M/mcL LAB HEMETOLOGY METHOD 04/15/2025 9:54 AM [facility] Hemoglobin 12.2(L) 13.5 - 17.5 g/dL LAB HEMETOLOGY METHOD 04/15/2025 9:54 AM [facility] Hematocrit 39.7(L) 42.0 - 54.0 % LAB HEMETOLOGY METHOD 04/15/2025 9:54 AM [facility] MCV 95.4 79.0 - 98.0 FL LAB HEMETOLOGY METHOD 04/15/2025 9:54 AM [facility] MCH 29.3 27.0 - 32.0 pcg LAB HEMETOLOGY METHOD 04/15/2025 9:54 AM [facility] MCHC 30.7(L) 32.0 - 37.0 g/dL LAB HEMETOLOGY METHOD 04/15/2025 9:54 AM [facility] RDW 14.2 11.0 - 15.0 % LAB HEMETOLOGY METHOD 04/15/2025 9:54 AM [facility] Platelets 110(L) 130 - 400 K/mcL LAB HEMETOLOGY METHOD 04/15/2025 9:54 AM [facility] MPV 9.9 7.0 - 11.0 FL LAB HEMETOLOGY METHOD 04/15/2025 9:54 AM [facility] NRBC 0.0 <1.0 % LAB HEMETOLOGY METHOD 04/15/2025 9:54 AM [facility] NRBC Absolute 0.00 <0.10 K/mcL LAB HEMETOLOGY METHOD 04/15/2025 9:54 AM [facility] Blood Venous blood specimen / Unknown Venipuncture / Unknown 04/15/2025 5:33 AM EDT 04/15/2025 9:00 AM EDT Cinthya Jones MD LAB BLOOD ORDERABLES Fin al Result Performing Organization Address City/State/[facility] Co de Phone Number [facility] [address] [place] [address], documented in this encounter Visit Diagnoses Diagnosis Personal history of traumatic brain injury documented in this encounter Care Teams Louver Door Assembler Relationship Specialty Start Date End Date Cinthya Jones MD [address] [place] [id number] PCP - General Family Medicine 07/06/24 documented as of this encounter
--- OUTSIDE RECORDS SUMMARY | 2025-04-15 15:02 | XMS_ITS | Encounter Summary ---
Author Organization [facility] Address [address] [place] [address] Phone Care Team Providers Care Chain Maker Name Role Phone Willy Lord DO Primary Care Provider [phone] Encounter Details Date Type Department Care Team (Late st Contact Info) Description 03/03/2017 Documentation [facility] [address], [address] [place] [address] [address] [place] [address] [email or web address] Social History Tobacco Use Types Packs/Day Years Used Date Smoking Tobacco: Former Sex and Gender Information Value Date Recorded Sex Assigned at Not on file Legal Sex Male 10:53 AM EDT Gender Identity Not on file Sexual Orientation Not on file documented as of this encounter Plan of Treatment Not on file documented as of this encounter Visit Diagnoses Not on filedocumented in this encounter Care Teams Chain Maker Relationship Specialty Start Date End Date Willy Lord DO [address] [place] [address] [address] [place] [address] PCP - General Internal Medicine 01/08/17 documented as of this encounter Additional Source Comments The information contained in this document represents components of the legal health record. It is not the complete legal health record.[facility]
--- OUTSIDE RECORDS SUMMARY | 2025-04-15 15:02 | XMS_ITS | Encounter Summary ---
Author Organization [facility] Address [address] [place] [address] Phone Care Team Providers Care Principal Biostatistician Name Role Phone Willy Lord DO Primary Care Provider [phone] Encounter Details Date Type Department Care Team (Late st Contact Info) Description 02/02/2017 Procedure Pass [facility] [address] [place] [address] Social History Tobacco Use Types Packs/Day Years [...] on filedocumented in this encounter Care Teams Principal Biostatistician Relationship Specialty Start Date End Date Willy Lord DO [address] [place] [address] PCP - General Internal Medicine 01/08/17 documented as of this encounter Additional Source Comments The information contained in this document represents components of the legal health record. It is not the complete legal health record.[facility]
--- OUTSIDE RECORDS SUMMARY | 2025-04-15 15:02 | XMS_ITS | Encounter Summary ---
Author Organization [facility] Address [address] [place] [address] Phone Care Team Providers Care Wafer Fabrication Technician Name Role Phone Willy Lord DO Primary Care Provider [phone] Encounter Details Date Type Department Care Team (Late st Contact Info) Description 02/02/2017 Procedure Pass [facility] [address] [place] [address] Social History Tobacco Use Types Packs/Day Years [...] on filedocumented in this encounter Care Teams Wafer Fabrication Technician Relationship Specialty Start Date End Date Willy Lord DO [address] [place] [address] PCP - General Internal Medicine 01/08/17 documented as of this encounter Additional Source Comments The information contained in this document represents components of the legal health record. It is not the complete legal health record.[facility]
--- OUTSIDE RECORDS SUMMARY | 2025-04-15 15:02 | XMS_ITS | Encounter Summary ---
Author Organization [facility] Address [address] [place] [address] Phone Care Team Providers Care Marketing Mgr Name Role Phone Willy Lord DO Primary Care Provider [phone] Encounter Details Date Type Department Care Team (Late st Contact Info) Description 02/02/2017 Procedure Pass [facility] [address] [place] [address] Social History Tobacco Use Types Packs/Day Years [...] on filedocumented in this encounter Care Teams Marketing Mgr Relationship Specialty Start Date End Date Willy Lord DO [address] [place] [address] PCP - General Internal Medicine 01/08/17 documented as of this encounter Additional Source Comments The information contained in this document represents components of the legal health record. It is not the complete legal health record.[facility]
--- OUTSIDE RECORDS SUMMARY | 2025-04-15 15:02 | XMS_ITS | Encounter Summary ---
Author Organization [facility] Address [address] [place] [address] Phone Care Team Providers Care Cadd Operator Name Role Phone Willy Lord DO Primary Care Provider [phone] Encounter Details Date Type Department Care Team (Late st Contact Info) Description 02/02/2017 Procedure Pass [facility] [address] [place] [address] Social History Tobacco Use Types Packs/Day Years [...] on filedocumented in this encounter Care Teams Cadd Operator Relationship Specialty Start Date End Date Willy oLrd DO [address] [place] [address] PCP - General Internal Medicine 01/08/17 documented as of this encounter Additional Source Comments The information contained in this document represents components of the legal health record. It is not the complete legal health record.[facility]
--- OUTSIDE RECORDS SUMMARY | 2025-04-15 15:02 | XMS_ITS | Encounter Summary ---
Author Organization [facility] Address [address] [place] [address] Phone Care Team Providers Care Motor Vehicle Lecturer Name Role Phone Willy Lord DO Primary Care Provider [phone] Encounter Details Date Type Department Care Team (Late st Contact Info) Description 02/02/[address] [facility] [address] [place] [address] Social History Tobacco Use Types Packs/Day Years [...] on filedocumented in this encounter Care Teams Motor Vehicle Lecturer Relationship Specialty Start Date End Date Willy Lord DO [address] [place] [address] PCP - General Internal Medicine 01/08/17 documented as of this encounter Additional Source Comments The information contained in this document represents components of the legal health record. It is not the complete legal health record.[facility]
--- OUTSIDE RECORDS SUMMARY | 2025-04-15 15:02 | XMS_ITS | Encounter Summary ---
Author Organization [facility] Address [address] [place] [address] Phone Care Team Providers Care Door Puller Name Role Phone Willy Lord DO Primary Care Provider [phone] Encounter Details Date Type Department Care Team (Late st Contact Info) Description 02/02/2017 Procedure Pass [facility] [address] [place] [address] Social History Tobacco Use Types Packs/Day Years [...] on filedocumented in this encounter Care Teams Door Puller Relationship Specialty Start Date End Date Willy Lord DO [address] [place] [address] PCP - General Internal Medicine 01/08/17 documented as of this encounter Additional Source Comments The information contained in this document represents components of the legal health record. It is not the complete legal health record.[facility]
--- OUTSIDE RECORDS SUMMARY | 2025-04-15 15:02 | XMS_ITS | Encounter Summary ---
Author Organization [facility] Address [address] [place] [address] Phone Care Team Providers Care Manager Of Warehouse Name Role Phone Willy Lord DO Primary Care Provider [phone] Encounter Details Date Type Department Care Team (Late st Contact Info) Description 02/02/2017 Procedure Pass [facility] [address] [place] [address] Social History Tobacco Use Types Packs/Day Years [...] on filedocumented in this encounter Care Teams Manager Of Warehouse Relationship Specialty Start Date End Date Willy Lord DO [address] [place] [address] PCP - General Internal Medicine 01/08/17 documented as of this encounter Additional Source Comments The information contained in this document represents components of the legal health record. It is not the complete legal health record.[facility]
--- OUTSIDE RECORDS SUMMARY | 2025-04-15 15:02 | XMS_ITS | Encounter Summary ---
Author Organization [facility] Address [address] [place] [address] Phone Care Team Providers Care Damage Inside Adjuster Name Role Phone Willy Lord DO Primary Care Provider [phone] Encounter Details Date Type Department Care Team (Late st Contact Info) Description 02/02/2017 Procedure Pass [facility] [address] [place] [address] Social History Tobacco Use Types Packs/Day Years [...] on filedocumented in this encounter Care Teams Damage Inside Adjuster Relationship Specialty Start Date End Date Willy Lord DO [address] [place] [address] PCP - General Internal Medicine 01/08/17 documented as of this encounter Additional Source Comments The information contained in this document represents components of the legal health record. It is not the complete legal health record.[facility]
--- OUTSIDE RECORDS SUMMARY | 2025-04-15 15:02 | XMS_ITS | Encounter Summary ---
Author Organization [facility] Address [address] [place] [address] Phone Care Team Providers Care Online Activist Name Role Phone Willy Lord DO Primary Care Provider [phone] Encounter Details Date Type Department Care Team (Late st Contact Info) Description 02/02/2017 Procedure Pass [facility] [address] [place] [address] Social History Tobacco Use Types Packs/Day Years [...] on filedocumented in this encounter Care Teams Online Activist Relationship Specialty Start Date End Date Willy Lord DO [address] [place] [address] PCP - General Internal Medicine 01/08/17 documented as of this encounter Additional Source Comments The information contained in this document represents components of the legal health record. It is not the complete legal health record.[facility]
--- OUTSIDE RECORDS SUMMARY | 2025-04-15 15:02 | XMS_ITS | Encounter Summary ---
Author Organization [facility] Address [address] [place] [address] Phone Care Team Providers Care Cotton Washer Name Role Phone Willy Lord DO Primary Care Provider [phone] Encounter Details Date Type Department Care Team (Late st Contact Info) Description 02/02/2017 Procedure Pass [facility] [address] [place] [address] Social History Tobacco Use Types Packs/Day Years [...] on filedocumented in this encounter Care Teams Cotton Washer Relationship Specialty Start Date End Date Willy Lord DO [address] [place] [address] PCP - General Internal Medicine 01/08/17 documented as of this encounter Additional Source Comments The information contained in this document represents components of the legal health record. It is not the complete legal health record.[facility]
[2025-04-15 15:08] LABS: Neutrophils Percent Manual 76 % (45-73)
[2025-04-15 15:09] LABS: Band Neutrophils Percent 19 % (3-5); Lymphocytes Absolute Manual 0.3 X10*3/uL (1.2-4.9); Lymphocytes Percent Manual 3 % (20-40); Metamyelocytes Absolute 0.1 X10*3/uL; Metamyelocytes Percent 1 %; Monocytes Absolute Manual 0.1 X10*3/uL (0.1-1.2); Monocytes Percent Manual 1 % (2-11); Neutrophils Absolute Manual 9.8 X10*3/uL (2.0-8.3)
[2025-04-15 15:10] LABS: Macrocytosis 1+ (5-14) /OIF; RBC Morphology NOTED
[2025-04-15 15:11] LABS: Dohle Bodies PRESENT; Large Platelet PRESENT; Toxic Vacuolation PRESENT
[2025-04-15 15:12] LABS: Platelet Count 103 X10*3/uL (160-400)
[2025-04-15 15:18] LABS: COVID-19 Test Negative (Negative); IDNOW Serial# 55D5AD1C
[2025-04-15 15:20] LABS: IDNOW Serial# 58CA691E; Influenza B2 Negative (Negative)
[2025-04-15 16:18] LABS: Appearance Urine Clear; Glucose Urine UA Negative (Negative); PH 6.0 (5.0-9.0); Specific Gravity - Urine 1.025 (1.005-1.025); UMIC TRIGGER UACC YES
[2025-04-15 16:24] LABS: UACC Culture Trigger YES
[2025-04-15 16:32] LABS: Reflex Lactate? Lactic Acid Added
[2025-04-15 16:53] LABS: ~Lactic Acid-LAB USE ONLY 1.9 mmol/L (0.5-2.0)
[2025-04-15] MEDS: Lactated Ringers 1,000 ML 100 ML IVCONT (17:11)
--- NOTE | 2025-04-15 18:08 | PC.NURSE ---
Report from ED RN at 1640. Assumed care at 1700. Upon initial assessment, pt arrive to unit with levophed drip running at 0.13mcg/kg/hr Pt stuporous, roused when repositioned. Answered some questions, then again stuporous. Speech garbled/unclear.. Pt on michelle hugger for low temps. Per ED RN, pt straight cathed at approx 1550 for 250mL. Pt DTV at 2200. Pt repositioned q2hrs. Fall and safety precautions in place. See MAR and assessments for further details.
--- NOTE | 2025-04-15 18:18 | PHA.MEDREC ---
Pharmacy Consult ? Medication Reconciliation Pharmacy has completed the medication reconciliation, utilized list from [facility].
--- NOTE | 2025-04-15 18:21 | PC.NURSE ---
late entry: [facility] ?recent pna at [facility]. upon arrival, patient hypoxic, hypothermic, and increasingly altered. 3 IV's placed, labs obtained and sent. warming blanket placed on patient, straight cath w/ 250mL output. patient becoming increasingly less responsive throughout visit, grimacing to painful stimuli. orders placed for sepsis fluids based off of estimated weight d/t not being placed on weighted stretcher upon arrival. placed on weighted stretcher for exact weight for levo gtt.
--- NOTE | 2025-04-15 19:26 | PM.CCHP ---
History of Present Illness Date of Service: 04/15/25 Attending physician on admission: Jamshid He Chief Complaint: Acute septic shock 69-year-old male who [facility], he has underlying history of dementia, seizures, GERD, BPH, anxiety, Hodgkin lymphoma, chronic pain syndrome, TBI.? The patient had been transferred due to altered mental status and shortness of breath, reportedly the patient had been started on treatment for a pneumonia at the [facility] facility, has had increased oxygen requirements.? The patient is healthcare proxy at requested treatment and transferred to the hospital ensuring that he is DNR DNI but no comfort measures. In the emergency room initially the patient was noted to be normotensive, afebrile and satting 94% on 2 L nasal cannula, however subsequently the patient became hypotensive, hypothermic, tachypneic and required increased oxygen supplementation.? His workup revealed white count of 10.3, H and H of 12.740 respectively, platelets 103, 19% band neutrophils, toxic granulation.? There was no electrolyte abnormalities.? BUN 35, creatinine 0.8, lactic acid 2.5.? Albumin 3.7.? Urinalysis appears to be contaminated.? Chest x-ray showed cardiomegaly with pulmonary vascular congestion atelectasis and/or infiltrate at the right lower lung.? The patient was treated with 30 mL/kilos of IV fluids, blood cultures drawn and started on antibiotics.? Given that the patient's blood pressure did not improve after the above-mentioned bolus, the patient was started on Levophed.? Current oxygen requirement 5 L nasal cannula. The patient is unable to answer questions, he was transferred to the ICU for further care.? It is unclear what the baseline mental status for this patient but reportedly he is mental status was altered in comparison to what he normally is at the [facility] facility. Review of Systems Review of Systems: Yes Unobtainable due to mental status PMFSH Past Medical History Medical History (Updated 04/21/25 @ 13:51 by Annamarie Carpenter MD) Skull fracture Chronic back pain Dementia Surgical History Surgical History History of surgery on lower extremity Social History Social History Household Members: Unknown / Unable to assess Housing: Unknown / Unable to assess Patient Tobacco Use Status: Never used Tobacco Advance Directives Date on File: 04/15/25 service: No Meds Allergies Allergy/AdvReac Type Severity Reaction Status Date / Time No Known Allergies Allergy Verified 04/15/25 14:07 Active Medications: Current Medications Acetaminophen (Acetaminophen Supp 650 Mg Supp.Rect) 650 mg PA Q6H PRN PRN Reason: Pain, Moderate(Pain Scale 4-6) Enoxaparin Sodium (Enoxaparin Sodium 40 Mg/0.4 Ml Syringe) 40 mg SUBCUT Q24H MICAELA Last Admin: 04/15/25 17:03 Dose: 40 mg Famotidine (Famotidine/Pf 20 Mg/2 Ml Vial) 20 mg IVPUSH BID MICAELA Hydromorphone HCl (Hydromorphone Hcl 1 Mg/Ml Syringe) 0.25 mg IVPUSH Q6H PRN; Protocol PRN Reason: Pain, Moderate(Pain Scale 4-6) Norepinephrine Bitartrate (Levophed) 8 mg in 250 mls @ 0 mls/hr IVCONT .Q0M MICAELA; Protocol Last Titration: 04/15/25 18:15 Dose: 0.15 mcg/kg/min, 25 mls/hr Lactated Ringer's (Lr) 1,000 mls @ 100 mls/hr IVCONT .Q10H MICAELA Last Admin: 04/15/25 17:11 Dose: 100 mls/hr Ondansetron HCl (Ondansetron Hcl 4 Mg/2 Ml Vial) 4 mg IVPUSH Q8H PRN PRN Reason: Nausea and Vomiting Home Medications ?Medication ?Instructions ?Recorded ?Confirmed ?Last Taken ?Type acetaminophen 500 mg tablet 1,000 mg PO TID 10/06/22 04/15/25 04/15/25 06:05 History aluminum-mag hydroxide-simethicone 30 ml PO Q4H PRN Indigestion 10/06/22 04/15/25 03/11/25 11:32 History 200 mg-200 mg-20 mg/5 mL oral susp (Ophelia-Lanta) baclofen 5 mg tablet 15 mg PO TID 10/06/22 04/15/25 04/15/25 06:05 History bisacodyl 10 mg rectal suppository 10 mg PA DAILY PRN constipation, 10/06/22 04/15/25 Unknown History if no BM for 8 hours after MOM guaifenesin 100 mg/5 mL oral 200 mg PO Q4H PRN Cough 10/06/22 04/15/25 03/29/25 00:17 History liquid (Ophelia-Tussin) latanoprost 0.005 % eye drops 1 drp ophthalmic (eye) BEDTIME 10/06/22 04/15/25 04/14/25 20:04 History levetiracetam 1,000 mg tablet 1,000 mg PO BID 10/06/22 04/15/25 04/15/25 08:23 History linaclotide 290 mcg capsule 290 mcg PO DAILY 10/06/22 04/15/25 04/15/25 06:05 History (Linzess) magnesium hydroxide 400 mg/5 mL 30 ml PO DAILY PRN Constipation, 10/06/22 04/15/25 01/05/25 14:25 History oral suspension (Milk of Magnesia) if no BM for 3 days melatonin 3 mg tablet 6 mg PO BEDTIME 10/06/22 04/15/25 04/14/25 20:05 History menthol 5 % topical patch (Icy Hot 1 patch topical Q12H PRN hip pain 10/06/22 04/15/25 Unknown History (menthol)) tamsulosin 0.4 mg capsule 0.4 mg PO BEDTIME 10/06/22 04/15/25 04/14/25 20:05 History timolol maleate 0.5 % eye drops 1 drp ophthalmic-Left DAILY 10/06/22 04/15/25 04/15/25 08:23 History albuterol sulfate 2.5 mg/3 mL 2.5 mg inhalation Q6H PRN 04/15/25 04/15/25 Unknown History (0.083 %) solution for nebulization SOB/wheezing calcium carbonate 500 mg PO Q8H PRN Heartburn 04/15/25 04/15/25 11/16/24 History docusate sodium 100 mg capsule 100 mg PO BID PRN Constipation 04/15/25 04/15/25 Unknown History ergocalciferol (vitamin D2) 1,250 1,250 mcg PO Q28D 04/15/25 04/15/25 04/09/25 10:04 History mcg (50,000 unit) capsule (Vitamin D2) fluticasone furoate 100 1 inh inhalation DAILY 04/15/25 04/15/25 04/15/25 08:23 History mcg/actuation blister powder for inhalation (Arnuity Ellipta) ipratropium 0.5 mg-albuterol 3 mg 3 ml inhalation Q4H PRN 04/15/25 04/15/25 Unknown History (2.5 mg base)/3 mL nebulization pneumonia/SOB soln mirtazapine 7.5 mg tablet 7.5 mg PO BEDTIME 04/15/25 04/15/25 04/14/25 20:03 History sodium phosphates 19 gram-7 118 ml PA DAILY PRN constipation, 04/15/25 04/15/25 Unknown History gram/118 mL enema (Fleet Enema) if no BM for 8 hours after bisacodyl tizanidine 2 mg tablet 2 mg PO BEDTIME 04/15/25 04/15/25 04/14/25 20:03 History tramadol 50 mg tablet 100 mg PO Q8H PRN LOWER BACK PAIN 04/15/25 04/15/25 04/13/25 01:31 History trazodone 50 mg tablet 25 mg PO TID 04/15/25 04/15/25 04/15/25 08:24 History Physical Exam Vital Signs: Vital Signs: Last Vital Signs Temp 95.9 F L 04/15/25 19:00 Pulse 94 04/15/25 19:00 Resp 23 H 04/15/25 19:00 BP 126/51 L 04/15/25 19:00 Pulse Ox 94 04/15/25 19:00 O2 Del Method Nasal Cannula 04/15/25 19:00 O2 Flow Rate 5 04/15/25 19:00 BMI result Body Mass Index 28.6 Sepsis exam done at 19:15 General:? Somnolent, unable to follow commands.? Nonverbal. ? Skin:? Thin, Intact, no lesions, edema, erythema, clubbing or cyanosis.? No ulcers. HEENT:? Head is normocephalic, atraumatic, pupils equal. Buccal mucosa is dry.? Cardiac:? Clear S1-S2, no murmurs rubs or gallops. Pulmonary:? Diminished lung sounds bilaterally , bilateral rhonchi right more than left.? No wheezes, fine crackles at the bases bilaterally. Abdomen:? Protuberant, positive bowel sounds in all 4 quadrants.? Soft, nontender, no rebound or guarding.? Musculoskeletal:? Passive range of motion of upper and lower extremities bilaterally showed no cogwheeling, no crepitus.? No leg edema.? No asymmetry. Neurologic:? As above.? Unable to further assess. Vascular:? 2+ pulses upper and lower extremities distally.? Less than 2nd capillary refill of fingers and toes bilaterally upper and lower extremities Results Labs 04/23/25 05:48 04/23/25 05:48 Labs: Laboratory Results - last 24 hr 04/15/25 04/15/25 04/15/25 14:26 16:11 16:35 MCV 94.4 MCH 29.7 MCHC 31.5 RDW 14.2 Plt Count 103 L D MPV 9.7 Immature Gran % (Auto) Cancelled Neut % (Auto) Cancelled Lymph % (Auto) Cancelled Ida % (Auto) Cancelled Eos % (Auto) Cancelled Baso % (Auto) Cancelled Lymph # (Auto) Cancelled [place] # (Auto) Cancelled Eos # (Auto) Cancelled Baso # (Auto) Cancelled Abs Immat Gran (auto) Cancelled Absolute Neuts (auto) Cancelled Absolute Nucleated RBC 0.000 Nucleated RBC % (auto) 0.0 Neutrophils % (Manual) 76 H Band Neutrophils % 19 H Lymphocytes % (Manual) 3 L Monocytes % (Manual) 1 L Metamyelocytes % 1 Abs Neuts (Manual) 9.8 H Lymphocytes # (Manual) 0.3 L Monocytes # (Manual) 0.1 Metamyelocytes # 0.1 Toxic Vacuolation PRESENT Dohle Bodies PRESENT Platelet Estimate SLIGHTLY DECREASED Large Platelets PRESENT Plt Morphology Comment NOTED RBC Morphology NOTED Macrocytosis 1+ (5-14) PT 12.1 INR 1.1 Anion Gap 15 Estim Creat Clear Calc 79.5 Estimated GFR > 60 Random Glucose 159 H Lactic Acid 2.5 H* Lactic Acid F/U @ 2Hr 1.9 Calcium 10.0 D Phosphorus 2.7 Magnesium 2.3 Total Bilirubin 0.5 AST 38 H ALT 85 H Alkaline Phosphatase 187 H Troponin I High Sens < 2.7 Total Protein 7.6 Albumin 3.7 Urine Color Yellow Urine Appearance Clear Urine pH 6.0 Ur Specific [place] 1.025 Urine Protein 30 (1+) H Urine Glucose (UA) Negative Urine Ketones Trace Urine Blood Trace H Urine Nitrite Negative Ur Leukocyte Esterase Small (1+) H Urine RBC 3-5 H Urine WBC 21-50 H Ur Squamous Epith Cells 6-10 Urine Bacteria None Seen Hyaline Casts 3-5 COVID-19 (DOMONIQUE) Negative COVID-19 Clin Com See Note Influenza Type A (LUIS) Negative Influenza Type B (LUIS) Negative Influenza A & B Note See Note Assessment and Plan (1) Sepsis with acute organ dysfunction and septic shock: Status: Acute Plan ASSESSMENT : 1. Acute septic shock 2. Aspiration pneumonitis of the right lung with associated hypoxic respiratory failure 3. Mild pulmonary vascular congestion 4. Normocytic anemia 5. Acute thrombocytopenia 6. Acute Metabolic and lactic acidosis secondary to the above 7. Hypoalbuminemia 8. Acute kidney injury with BUN to creatinine ratio greater than 40 9. Metabolic encephalopathy with unknown baseline PLAN OF CARE: The patient was admitted to the ICU, vital signs, I's and nose, continue with pressor support as his blood pressure did not improve after 30 mL/kilos, albumin replacement, continue with antibiotics.? I do not think the patient needs forced diuresis at this point.? Sputum culture and Gram stain, echo in the morning.? I will discontinue Dilaudid as I think the patient is obtunded enough and this could worsened respiratory status leading to worsening aspiration. ?We will order head CT to rule out intracranial pathology as a cause of his reported altered mental status. GI PROPHYLAXIS:? IV famotidine DVT PROPHYLAXIS:? Lovenox subQ Focused Sepsis exam done at 21:15 General:? Somnolent, unable to follow commands.? Nonverbal. ? Cardiac:? Clear S1-S2, no murmurs rubs or gallops. Pulmonary:? Diminished lung sounds bilaterally , bilateral rhonchi right more than left.? No wheezes, fine crackles at the bases bilaterally. Neurologic:? As above.? Unable to further assess. Vascular:? 2+ pulses upper and lower extremities distally.? Less than 2nd capillary refill of fingers and toes bilaterally upper and lower extremities. Lactic acid has improved, recheck laboratories show improvement of BUN to creatinine ratio, continue with IV fluids.? He has not had increased oxygen demand, continue with Levophed. This patient counter and care had a high probability of a clinically significant, sudden, or life threatening deterioration of this patient's condition which required my full and direct attention, intervention and personal management. Critical care time used for critical evaluation of this patient, diagnosis, treatment and coordination of care, review her records and documentation TOTAL CRITICAL CARE TIME? 90? MIN . discussion and coordination with consultants, completely separate from any procedures performed. Patient's care was discussed in detail with Dr. He who is aware of all the above as well as the plan of care for this patient.
[2025-04-15] MEDS: Albumin Human 25 % 100 ML 133.33 ML IV ×2 (19:56→20:41)
[2025-04-15 20:23] LABS: NT Pro B Type Natriuretic Pept 210.8 pg/mL (<300)
[2025-04-15 20:24] LABS: Alanine Aminotransferase 68 U/L (0-40); Albumin Level 3.2 g/dL (3.5-5.0); Alkaline Phosphatase 162 U/L (39-117); Anion Gap 10 (12-20); Aspartate Amino Transferase 28 U/L (5-37); Blood Urea Nitrogen 27 mg/dL (9-16); Calcium 9.4 mg/dL (8.4-10.2); Carbon Dioxide 30 mmol/L (22-29); Chloride 106 mmol/L (96-108); Creatinine Clr Calc Pharmacy 87.7; Estimated Glomerular Filt Rate > 60; Potassium 4.4 mmol/L (3.3-5.1); Sodium 142 mmol/L (135-145); Total Protein 6.5 g/dL (6.5-8.0)
[2025-04-16] VITALS (35 sets, daily range): BP systolic 74–134; BP diastolic 42–78; PULSE 52–105; RESP 17–29; TEMP 36.2–37.1; O2SAT 88–98; BMI 24.9
[2025-04-16] MEDS: vancomycin/NS 2,000 MG/500 ML PLAST..BAG 250 MG IV (03:07)
[2025-04-16] MEDS: Lactated Ringers 1,000 ML 100 ML IVCONT (03:11)
[2025-04-16 04:30] LABS: VBG HCO3 20 mmol/L (22-26); VBG O2 % Saturation 99.0 %
[2025-04-16 04:34] LABS: Venous Blood Gas Refer to POC result
[2025-04-16 04:47] LABS: PLT CLUMP 1
[2025-04-16 04:49] LABS: Hematocrit 32.1 % (42.0-52.0); Hemoglobin 10.3 g/dl (14.0-18.0); Mean Corpuscular HGB Conc 32.1 g/dl (31.0-36.0); Mean Corpuscular Hemoglobin 29.8 pg (27.0-33.0); Mean Corpuscular Volume 92.8 fL (80.0-98.0); NRBC Abs Auto 0.020 X10*3/uL (0.0-0.012); NRBC Pct Auto 0.2 /100WBC (0.0-0.2); Red Blood Count 3.46 X10*6/uL (4.60-5.80)
[2025-04-16 04:52] LABS: Platelet Count 111 X10*3/uL (160-400); White Blood Count 10.2 X10*3/uL (4.8-10.8)
[2025-04-16 05:01] LABS: Alanine Aminotransferase 50 U/L (0-40); Albumin Level 3.8 g/dL (3.5-5.0); Alkaline Phosphatase 141 U/L (39-117); Anion Gap 11 (12-20); Aspartate Amino Transferase 22 U/L (5-37); Blood Urea Nitrogen 19 mg/dL (9-16); Calcium 9.6 mg/dL (8.4-10.2); Carbon Dioxide 26 mmol/L (22-29); Chloride 112 mmol/L (96-108); Creatinine Clr Calc Pharmacy 83.8; Estimated Glomerular Filt Rate > 60; Magnesium 2.0 mg/dL (1.6-2.6); Potassium 4.4 mmol/L (3.3-5.1); Sodium 145 mmol/L (135-145); Total Protein 6.5 g/dL (6.5-8.0)
[2025-04-16 05:29] LABS: Band Neutrophils Percent 7 % (3-5); Basophils Abs Manual 0.1 X10*3/uL (0.0-0.2); Basophils Percent Manual 1 % (0-2); Eosinophils Absolute Manual 0.1 X10*3/uL (0.0-0.4); Eosinophils Percent Manual 1 % (0-4); Large Platelet PRESENT; Lymphocytes Absolute Manual 0.9 X10*3/uL (1.2-4.9); Lymphocytes Percent Manual 9 % (20-40); Macrocytosis 1+ (5-14) /OIF; Microcytosis 1+ (5-14) /OIF; Monocytes Absolute Manual 0.2 X10*3/uL (0.1-1.2); Monocytes Percent Manual 2 % (2-11); Neutrophils Absolute Manual 8.9 X10*3/uL (2.0-8.3); Neutrophils Percent Manual 80 % (45-73); RBC Morphology NOTED
[2025-04-16 05:30] LABS: Basophilic Stippling 1+ (0-2) /OIF; Dohle Bodies PRESENT; Spherocytes 2+ (3-5) /OIF; Toxic Vacuolation PRESENT
--- NOTE | 2025-04-16 06:38 | PHA.PROG ---
Admission Date/Time: April 15, 2025 16:35 Indication: bacteremia Weight in k.4 kg Adjusted body weight in K.9 kg Reynolds body weight in K.7 kg Obesity Dosing Indication % IBW: Serum Creatinine - Last 168 Hours 04/15/25 04/15/25 04/16/25 14:26 19:48 04:13 Creatinine 1.05 0.86 0.90 Estimated CrCl and GFR - Last 168 Hours 04/15/25 04/15/25 04/16/25 14: 19:48 04:13 Estim Creat Clear Calc 79.5 87.7 83.8 Estimated GFR > 60 > 60 > 60 Vancomycin Loading Dose:2000 mg x 1 Current Vancomycin Dosing Regimen: 750 mg q12h Vancomycin Monitoring using AUC goal of 400 - 600 range with trough as surrogate marker: predicted AUC 447 Date and Time for next Vancomycin Level to be drawn: 04/17/25 @1300 Pharmacist Comments on Vancomycin Plan: Vancomycin dosing will take advantage of [employer] as a clinical decision support tool that uses Bayesian modeling to calculate individual patient's pharmacokinetic parameters and forecast the patient's drug concentration time course with the target goal AUC 24 range of 400 - 600 mg/L/hr.
[2025-04-16] MEDS: 0.9 % Sodium Chloride Flush 3 ML SYRINGE IVFLUSH ×3 (07:47→23:39)
[2025-04-16] MEDS: Sodium,Potassium Phosphates POWD.PACK 2 PACKET PO (08:01)
--- NOTE | 2025-04-16 08:13 | P.PNCC_ITS ---
Subjective Subjective Date of Service: 04/16/25 Critical Care Time (minutes): 60 Physical Exam 2 Vital Signs: Vital Signs: Last Vital Signs Temp 97.9 F 04/16/25 07:00 Pulse 91 04/16/25 07:00 Resp 20 04/16/25 07:00 BP 115/52 L 04/16/25 07:00 Pulse Ox 95 04/16/25 07:00 O2 Del Method Nasal Cannula 04/16/25 07:00 O2 Flow Rate 2 04/16/25 07:00 BMI result Body Mass Index 24.9 Const: General: cooperative, healthy appearing, comfortable, no acute distress, well developed, alert, awake and Physically active HEENT: Head: Yes normal to inspection, Yes normocephalic and Yes atraumatic Eyes: General: appearance normal, both eyes and all related structures Neck: Neck: Yes normal visual inspection, Yes full ROM, Yes no meningeal signs, Yes trachea midline and Yes supple Chest: Chest palpation & inspection: normal inspection of the chest Resp: Other: diminished breath sounds throughout; no apprecialble overt rales, rhonchi, wheezing Effort & Inspection: normal respiratory effort Cardio: Rate: regular rate Rhythm: regular rhythm GI: Inspection: Yes normal to inspection, No Abdominal wall edema and No distended Palpation (GI): Soft to palpation, not firm, nontender, no guarding and not rigid Skin: General skin exam: no rashes or lesions noted Neuro: General: tone normal, moves all extremities, no meningeal signs and no focal motor deficits Extrem: General: Yes normal to inspection, Yes full ROM, Yes capillary refill normal and Yes no clubbing, cyanosis or edema Psych: Appearance: grossly normal Objective Data Labs 04/16/25 04:13 04/16/25 04:13 Labs: Laboratory Results - last 24 hr 04/15/25 04/15/25 04/15/25 14:26 16:11 16:35 WBC 10.3 RBC 4.27 L D Hgb 12.7 L D Hct 40.3 L D MCV 94.4 MCH 29.7 MCHC 31.5 RDW 14.2 Plt Count 103 L D MPV 9.7 Immature Gran % (Auto) Cancelled Neut % (Auto) Cancelled Lymph % (Auto) Cancelled [place] % (Auto) Cancelled Eos % (Auto) Cancelled Baso % (Auto) Cancelled Lymph # (Auto) Cancelled [place] # (Auto) Cancelled Eos # (Auto) Cancelled Baso # (Auto) Cancelled Abs Immat Gran (auto) Cancelled Absolute Neuts (auto) Cancelled Absolute Nucleated RBC 0.000 Nucleated RBC % (auto) 0.0 Neutrophils % (Manual) 76 H Band Neutrophils % 19 H Lymphocytes % (Manual) 3 L Monocytes % (Manual) 1 L Eosinophils % (Manual) Basophils % (Manual) Metamyelocytes % 1 Abs Neuts (Manual) 9.8 H Lymphocytes # (Manual) 0.3 L Monocytes # (Manual) 0.1 Eosinophils # (Manual) Basophils # (Manual) Metamyelocytes # 0.1 Toxic Vacuolation PRESENT Dohle Bodies PRESENT Platelet Estimate SLIGHTLY DECREASED Large Platelets PRESENT Plt Morphology Comment NOTED RBC Morphology NOTED Basophilic Stippling Microcytosis Macrocytosis 1+ (5-14) Spherocytes PT 12.1 INR 1.1 VBG pH VBG pCO2 VBG pO2 VBG HCO3 VBG O2 Saturation VBG Base Excess Sodium 142 Potassium 4.5 Chloride 103 Carbon Dioxide 29 Anion Gap 15 BUN 35 H Creatinine 1.05 Estim Creat Clear Calc 79.5 Estimated GFR > 60 Random Glucose 159 H Lactic Acid 2.5 H* Lactic Acid F/U @ 2Hr 1.9 Calcium 10.0 D Phosphorus 2.7 Magnesium 2.3 Total Bilirubin 0.5 AST 38 H ALT 85 H Alkaline Phosphatase 187 H Troponin I High Sens < 2.7 NT-Pro-B Natriuret Pep 210.8 Total Protein 7.6 Albumin 3.7 Urine Color Yellow Urine Appearance Clear Urine pH 6.0 Ur Specific [place] 1.025 Urine Protein 30 (1+) H Urine Glucose (UA) Negative Urine Ketones Trace Urine Blood Trace H Urine Nitrite Negative Ur Leukocyte Esterase Small (1+) H Urine RBC 3-5 H Urine WBC 21-50 H Ur Squamous Epith Cells 6-10 Urine Bacteria None Seen Hyaline Casts 3-5 COVID-19 (DOMONIQUE) Negative COVID-19 Clin Com See Note Influenza Type A (LUIS) Negative Influenza Type B (LUIS) Negative Influenza A & B Note See Note 04/15/25 04/16/25 04/16/25 19:48 04:13 04:26 WBC 10.2 RBC 3.46 L Hgb 10.3 L Hct 32.1 L D MCV 92.8 MCH 29.8 MCHC 32.1 RDW 14.2 Plt Count 111 L MPV 10.3 Immature Gran % (Auto) Cancelled Neut % (Auto) Cancelled Lymph % (Auto) Cancelled [place] % (Auto) Cancelled Eos % (Auto) Cancelled Baso % (Auto) Cancelled Lymph # (Auto) Cancelled [place] # (Auto) Cancelled Eos # (Auto) Cancelled Baso # (Auto) Cancelled Abs Immat Gran (auto) Cancelled Absolute Neuts (auto) Cancelled Absolute Nucleated RBC 0.020 H Nucleated RBC % (auto) 0.2 Neutrophils % (Manual) 80 H Band Neutrophils % 7 H Lymphocytes % (Manual) 9 L Monocytes % (Manual) 2 Eosinophils % (Manual) 1 Basophils % (Manual) 1 Metamyelocytes % Abs Neuts (Manual) 8.9 H Lymphocytes # (Manual) 0.9 L Monocytes # (Manual) 0.2 Eosinophils # (Manual) 0.1 Basophils # (Manual) 0.1 Metamyelocytes # Toxic Vacuolation PRESENT Dohle Bodies PRESENT Platelet Estimate SLIGHTLY DECREASED Large Platelets PRESENT Plt Morphology Comment NOTED RBC Morphology NOTED Basophilic Stippling 1+ (0-2) Microcytosis 1+ (5-14) Macrocytosis 1+ (5-14) Spherocytes 2+ (3-5) PT INR VBG pH 7.50 H VBG pCO2 26 VBG pO2 122 VBG HCO3 20 L VBG O2 Saturation 99.0 VBG Base Excess -1.4 Sodium 142 145 Potassium 4.4 4.4 Chloride 106 112 H Carbon Dioxide 30 H 26 Anion Gap 10 L 11 L BUN 27 H 19 H Creatinine 0.86 0.90 Estim Creat Clear Calc 87.7 83.8 Estimated GFR > 60 > 60 Random Glucose 138 H 101 Lactic Acid Lactic Acid F/U @ 2Hr Calcium 9.4 9.6 Phosphorus 1.8 L Magnesium 2.0 Total Bilirubin 0.5 1.0 AST 28 22 ALT 68 H 50 H Alkaline Phosphatase 162 H 141 H Troponin I High Sens NT-Pro-B Natriuret Pep Total Protein 6.5 6.5 Albumin 3.2 L 3.8 Urine Color Urine Appearance Urine pH Ur Specific [place] Urine Protein Urine Glucose (UA) Urine Ketones Urine Blood Urine Nitrite Ur Leukocyte Esterase Urine RBC Urine WBC Ur Squamous Epith Cells Urine Bacteria Hyaline Casts COVID-19 (DOMONIQUE) COVID-19 Clin Com Influenza Type A (LUIS) Influenza Type B (LUIS) Influenza A & B Note Progress Note: A&P Assessment and plan (1) Pneumonia: Status: Acute (2) Acute respiratory failure with hypoxia: Status: Acute (3) Sepsis with acute organ dysfunction and septic shock: Status: Acute Plan Patient is a 69 Y M w/ traumatic brain injury, epilepsy, and hodgkin lymphoma?presenting to ED from SNF on 04/15 w/ dyspnea in setting of recent diagnosis of pneumonia, found to be in acute hypoxic respiratory failure and hypotensive?necessitating vasopressors N: encephalopathy, likely toxic-metabolic, to closely monitor; traumatic brain injury, epilepsy on home levetiracetam CV: shock, c/f septic shock, norepinephrine gtt, wean as tolerated R: acute hypoxic respiratory failure d/t pneumonia, NC, wean as tolerated GI: NPO while encephalopathic, otherwise advance as tolerated : no acute issues; to closely monitor renal indices/electrolytes? H: no acute issues; chemical DVT prophylaxis ID: pneumonia, c/b septic shock, empiric zosyn; to follow-up MRSA swab, consider vanc E: to monitor hypo-/hyper-glycemia P: no acute issues S: daily updates given to brother/HCP Quality Stroke Does the patient have a stroke diagnosis?: No VTE Prior VTE?: No VTE Risk Level:: Medical - moderate - high VTE Device Contraindication: N/A - Device Ordered VTE Drug Contraindication: N/A - Med Ordered
[2025-04-16 09:04] LABS: MRSA Nasal PCR NEGATIVE (Negative); SA Nasal PCR NEGATIVE (Negative)
[2025-04-16] MEDS: levETIRAcetam in NaCl (iso-os) 1,000 MG/100 ML PIGGYBACK 400 MG IV ×2 (09:33→20:39)
--- NOTE | 2025-04-16 12:11 | MHC.CM.PN ---
Pt unable to participate in CM assessment d/t medical issues: Information obtained from EMR and pt's HCP Mc. Per Mc, pt is a LTC resident of [facility] and will return when medically stable. He is mostlydependent on others for ADL's. Mc states pt can get feisty at times and has required medication management. HCP/MOLST on file, IMM in chart. Pt will return to [facility] via BLS. CM to follow
--- NOTE | 2025-04-16 12:46 | MHC.SL.SWA ---
Speech Pathologist Impression: Mild oral phase dysphagia Risk of Aspiration Due to: Weakness/deconditioning Dysphasia Diet Status: Recc NDD2 with thins, aspiration precautions, meds in puree, 1:1 feeding, cue pt to cease speaking when food in mouth, encourage slow pacing. Pt needs assist with self feeding d/t UE tremors and poor self-pacing. Liquid Consistency and Strategies for Safe Swallow: Liquid Intake Recommendation: Thin Liquid Intake Strategies: Solid Food Consistency: Dietary Recommendations: Grnd/Mech Altered (NDD2) Additional Modifications to Solid Foods: Oral Medication Intake: Whole with Puree Please contact the pharmacy regarding appropriate crushable or liquid drug formulations that are available whenever modified delivery is recommended. Compensatory Strategies and Precautions to be Taken for Safe Swallow: Supervision While Eating and Drinking for Safe Swallow: Total Assistance (1:1) Foods to Avoid: Swallowing Recommended Treatments: Recommendation for Speech: Inpatient Speech Therapy Comment: Mild oral dysphagia and impulsivity increase pt risk for aspiration. Recc NDD2 with thins, straws ok, aspiration precautions, 1:1 feeding, meds in puree. POWER BARKER following. Frequency/Duration: M-F daily Date Range for Service Req: Timeline to reassess: Remote Control Mirror Installer Clinican/Clinical Fellow: No Supervisory Statement: I have reviewed and agree with the student/clinical fellow's documentation: N/A Speech Language Pathologist: Kim Marie M.S., CCC-POWER BARKER
--- NOTE | 2025-04-16 18:26 | PC.NURSE ---
Assumed care @ 0700? Neuro: Alert, oriented? x1, confused/disoriented? Respiratory: Titrated off NC, now on RA Sp02 92%. Cardiac: Sinus Rhythm on tele, On levophed gtt per MAR, MAP goal >65. GI: Unknown LBM, +bowel sounds, 1:1 feed, Poor PO intake.? : External catheter in place. Skin: see skin assessment? Infectious: IV abx? Lines: peripheral IVs.
[2025-04-16] MEDS: Latanoprost 0.005 % Ophth Sol 2.5 ML DROPS 1 DROP EYE-BOTH (20:44)
[2025-04-17] VITALS (20 sets, daily range): BP systolic 101–143; BP diastolic 50–93; PULSE 61–95; RESP 16–30; TEMP 36.1–36.8; O2SAT 90–98; BMI 26.2
[2025-04-17 05:16] LABS: VBG HCO3 27 mmol/L (22-26); VBG O2 % Saturation 93.0 %
[2025-04-17 05:27] LABS: Venous Blood Gas Refer to POC result
[2025-04-17 05:32] LABS: MANUAL DIFF FLAG NO
[2025-04-17 05:42] LABS: Hematocrit 31.9 % (42.0-52.0); Hemoglobin 10.1 g/dl (14.0-18.0); Imm Gran Abs Auto 0.09 X10*3/uL (0.00-0.03); Imm Gran Pct Auto 1.5 % (0.0-0.4); Lymphocytes Absolute Auto 0.8 X10*3/uL (1.2-4.9); Mean Corpuscular HGB Conc 31.7 g/dl (31.0-36.0); Mean Corpuscular Hemoglobin 29.4 pg (27.0-33.0); Mean Corpuscular Volume 92.7 fL (80.0-98.0); NRBC Abs Auto 0.000 X10*3/uL (0.0-0.012); NRBC Pct Auto 0.0 /100WBC (0.0-0.2); Platelet Count 108 X10*3/uL (160-400); Red Blood Count 3.44 X10*6/uL (4.60-5.80); White Blood Count 6.1 X10*3/uL (4.8-10.8)
[2025-04-17 05:50] LABS: Albumin Level 3.5 g/dL (3.5-5.0); Anion Gap 12 (12-20); Blood Urea Nitrogen 18 mg/dL (9-16); Calcium 9.6 mg/dL (8.4-10.2); Carbon Dioxide 26 mmol/L (22-29); Chloride 110 mmol/L (96-108); Creatinine Clr Calc Pharmacy 73.9; Estimated Glomerular Filt Rate > 60; Magnesium 1.9 mg/dL (1.6-2.6); Potassium 3.9 mmol/L (3.3-5.1); Sodium 144 mmol/L (135-145)
[2025-04-17] MEDS: 0.9 % Sodium Chloride Flush 3 ML SYRINGE IVFLUSH ×3 (07:33→21:47)
[2025-04-17] MEDS: levETIRAcetam in NaCl (iso-os) 1,000 MG/100 ML PIGGYBACK 400 MG IV (08:03)
--- NOTE | 2025-04-17 08:19 | PM.CCPN ---
Subjective Subjective Date of Service: 04/17/25 Interval History: no significant overnight events; now off vasopressors Critical Care Time (minutes): 60 Physical Exam Vital Signs: Vital Signs: Last Vital Signs Temp 97.6 F 04/17/25 05:00 Pulse 92 04/17/25 07:58 Resp 22 H 04/17/25 07:00 BP 135/70 04/17/25 07:58 Pulse Ox 92 04/17/25 07:00 O2 Del Method Nasal Cannula 04/17/25 07:00 O2 Flow Rate 1 04/17/25 07:00 BMI result Body Mass Index 26.2 Const: General: cooperative, healthy appearing, comfortable, no acute distress, well developed, alert, awake and Physically active Orientation/consciousness: oriented to person and oriented to place HEENT: Head: Yes normal to inspection, Yes normocephalic and Yes atraumatic Eyes: General: appearance normal, both eyes and all related structures Neck: Neck: Yes normal visual inspection, Yes full ROM, Yes no meningeal signs, Yes trachea midline and Yes supple Chest: Chest palpation & inspection: normal inspection of the chest Resp: Other: diminished breath sounds throughout; no appreciable overt rales, rhonchi, wheezing Effort & Inspection: normal respiratory effort Cardio: Rate: regular rate Rhythm: regular rhythm GI: Inspection: Yes normal to inspection, No Abdominal wall edema and No distended Palpation (GI): Soft to palpation, not firm, nontender, no guarding and not rigid Skin: General skin exam: no rashes or lesions noted Neuro: General: oriented to person, oriented to place, tone normal, moves all extremities, no meningeal signs and no focal motor deficits Extrem: General: Yes normal to inspection, Yes full ROM, Yes capillary refill normal and Yes no clubbing, cyanosis or edema Psych: Appearance: grossly normal Objective Data Labs 04/17/25 05:01 04/17/25 05:01 Labs: Laboratory Results - last 24 hr 04/15/25 04/17/25 04/17/25 19:45 05:01 05:10 WBC 6.1 RBC 3.44 L Hgb 10.1 L Hct 31.9 L MCV 92.7 MCH 29.4 MCHC 31.7 RDW 14.6 Plt Count 108 L MPV 10.2 Immature Gran % (Auto) 1.5 H Neut % (Auto) 75.1 H Lymph % (Auto) 12.4 L Day % (Auto) 9.5 Eos % (Auto) 1.3 Baso % (Auto) 0.2 Lymph # (Auto) 0.8 L Day # (Auto) 0.6 Eos # (Auto) 0.1 Baso # (Auto) 0.0 Abs Immat Gran (auto) 0.09 H Absolute Neuts (auto) 4.6 Absolute Nucleated RBC 0.000 Nucleated RBC % (auto) 0.0 VBG pH 7.48 H VBG pCO2 36 VBG pO2 65 VBG HCO3 27 H VBG O2 Saturation 93.0 VBG Base Excess 4.0 Sodium 144 Potassium 3.9 Chloride 110 H Carbon Dioxide 26 Anion Gap 12 BUN 18 H Creatinine 0.93 Estim Creat Clear Calc 73.9 Estimated GFR > 60 Random Glucose 92 Calcium 9.6 Phosphorus 2.6 L Magnesium 1.9 Albumin 3.5 Nasal Screen MRSA (PCR) NEGATIVE Nasal S. aureus Screen NEGATIVE Nasal MRSA/S.aureus Interp SEE NOTE Microbiology Microbiology Results: Microbiology 04/15/25 14:28 Blood - Venous Blood Culture - Preliminary No growth after 24 hours. 04/15/25 14:25 Blood - Venous Blood Culture - Preliminary No growth after 24 hours. 04/15/25 Unknown Urine Catheterized - Straight Catheter Urine Culture - Preliminary No growth to date. Progress Note: A&P Assessment and plan (1) Pneumonia: Status: Acute (2) Sepsis with acute organ dysfunction and septic shock: Status: Acute Plan Patient is a 69 Y M w/ traumatic brain injury, epilepsy, and hodgkin lymphoma?presenting to ED from [facility] on 04/15 w/ dyspnea in setting of recent diagnosis of pneumonia, found to be in acute hypoxic respiratory failure and hypotensive?necessitating vasopressors N: encephalopathy, likely toxic-metabolic, to closely monitor; traumatic brain injury, epilepsy on home levetiracetam CV: shock, c/f septic shock, s/p norepinephrine gtt R: acute hypoxic respiratory failure d/t pneumonia, NC, wean as tolerated GI: modified diet : no acute issues; to closely monitor renal indices/electrolytes? H: no acute issues; chemical DVT prophylaxis ID: pneumonia, c/b septic shock, empiric zosyn E: to monitor hypo-/hyper-glycemia P: no acute issues S: daily updates given to brother/HCP Quality Stroke Does the patient have a stroke diagnosis?: No VTE Prior VTE?: No VTE Risk Level:: Medical - moderate - high VTE Device Contraindication: N/A - Device Ordered VTE Drug Contraindication: N/A - Med Ordered
--- NOTE | 2025-04-17 15:08 | MHC.SL.SWA ---
Speech Pathologist Impression: Risk of Aspiration Due to: Dysphasia Diet Status: Recommend DOWNGRADE liquids to NECTAR THICK, continue on Ground/Mechanical (NDD2), pills crushed in puree. Continue full support/1-1 feed at meals. Liquid Consistency and Strategies for Safe Swallow: Liquid Intake Recommendation: Lookingglass Thick Liquid Intake Strategies: Small Sips No Straws Solid Food Consistency: Dietary Recommendations: Grnd/Mech Altered (NDD2) Additional Modifications to Solid Foods: Oral Medication Intake: Crushed with Puree Please contact the pharmacy regarding appropriate crushable or liquid drug formulations that are available whenever modified delivery is recommended. Compensatory Strategies and Precautions to be Taken for Safe Swallow: Sitting Upright (90 deg) No Straw Liquids from Cup Small Bites and Sips Alternate Liquids/Solids Supervision While Eating and Drinking for Safe Swallow: Total Assistance (1:1) Foods to Avoid: Swallowing Recommended Treatments: Compens. Strategy Educat. Recommendation for Speech: Inpatient Speech Therapy Comment: Patient seen at lunch today in ICU for toleration of current diet: Ground Mechanical/Thin. Patient at time was pending transfer to the medical floor. Patient's sister was present for the meal. Patient was awake and alert, confused, asking repetitive questions about medical care (requesting drugs, toileting needs, etc.). Patient took bites of ground meat loaf, mashed potatoes and carrots, producing a munching pattern on these foods, timely swallow. Patient at times had mild oral residual after swallow. On liquids, which for this meal was gingerale, patient took controlled cup sips, taking small sips at each presentation. Patient after swallow produced a repetitive, weak cough, after which he was cued to clear throat and re-swallow which appeared to clear airway. On other sips, patient's voice and airway sounded wet, he was again cued to clear throat and re-swallow which improved vocal quality. TATTOO IDENTIFIER then did trial of Lookingglass Thick juice, with patient taking controlled cup sips, producing timely swallow, no clinical signs of aspiration of full cup of juice administered. Patient consumed most of meal. O2 saturation checked throughout, maintained in the 90s. Recommend DOWNGRADE liquids to NECTAR THICK, continue on Ground/Mechanical (NDD2), pills crushed in puree. Frequency/Duration: M-F daily Date Range for Service Req: Timeline to reassess: [employer] Clinican/Clinical Fellow: No Supervisory Statement: I have reviewed and agree with the student/clinical fellow's documentation: N/A Speech Language Pathologist: Lina Michael M.A., CCC-TATTOO IDENTIFIER
[2025-04-18 03:04] VITALS: BP 114/69; PULSE 66; RESP 18; TEMP 36.6; O2SAT 94
[2025-04-18 07:23] VITALS: BP 134/78; PULSE 67; RESP 20; TEMP 36.1; O2SAT 95
[2025-04-18 07:36] LABS: MANUAL DIFF FLAG NO
[2025-04-18 07:49] LABS: Hematocrit 32.9 % (42.0-52.0); Hemoglobin 10.6 g/dl (14.0-18.0); Imm Gran Abs Auto 0.11 X10*3/uL (0.00-0.03); Imm Gran Pct Auto 1.8 % (0.0-0.4); Lymphocytes Absolute Auto 0.7 X10*3/uL (1.2-4.9); Mean Corpuscular HGB Conc 32.2 g/dl (31.0-36.0); Mean Corpuscular Hemoglobin 29.8 pg (27.0-33.0); Mean Corpuscular Volume 92.4 fL (80.0-98.0); NRBC Abs Auto 0.000 X10*3/uL (0.0-0.012); NRBC Pct Auto 0.0 /100WBC (0.0-0.2); Platelet Count 102 X10*3/uL (160-400); Red Blood Count 3.56 X10*6/uL (4.60-5.80); White Blood Count 6.1 X10*3/uL (4.8-10.8)
[2025-04-18 07:58] LABS: Anion Gap 11 (12-20); Blood Urea Nitrogen 19 mg/dL (9-16); Calcium 9.6 mg/dL (8.4-10.2); Carbon Dioxide 28 mmol/L (22-29); Chloride 106 mmol/L (96-108); Creatinine Clr Calc Pharmacy 107.2; Estimated Glomerular Filt Rate > 60; Magnesium 1.9 mg/dL (1.6-2.6); Potassium 4.0 mmol/L (3.3-5.1); Sodium 141 mmol/L (135-145)
[2025-04-18] MEDS: 0.9 % Sodium Chloride Flush 3 ML SYRINGE IVFLUSH ×3 (08:24→20:14)
[2025-04-18 11:10] VITALS: BP 125/70; PULSE 69; RESP 20; TEMP 36; O2SAT 96
--- NOTE | 2025-04-18 14:21 | MHC.SLORD ---
Speech Language Pathology Order Status: No dysphagia treatment today, pt sister at bedside, wanted pt to sleep. Recc diet as ordered, SPECIFICATION MANAGER to re-assess.
--- NOTE | 2025-04-18 15:12 | MHC.CM.PN ---
Pt not ready to DC, he requires further acute care for tx of septic shock. DCP: return to LTC at [facility].
[2025-04-18 15:37] VITALS: BP 126/60; PULSE 68; RESP 16; TEMP 36.9; O2SAT 92
--- NOTE | 2025-04-18 19:41 | P.PNIM_ITS ---
Subjective Subjective Date of Service: 04/18/25 Interval History: Patient confused during examination; reports cognitive/ mental fogginess. Able to contribute to examination. No new complaints or issues to report Appetite preserved; eating & drinking well. Review of Systems Review of Systems: Yes all other systems are reviewed and are negative Physical Exam 2 Exam: Exam: Const: General: cooperati ve, healthy appear ing, comfortable, no acute distress, well developed, a lert, awake and Ph ysically active O rientation/conscio usness: oriented t o person and orien flakito to place HEENT: Head: Yes normal t o inspection, Yes normocephalic and Yes atraumatic Eyes: General: appearanc e normal, both eye s and all related structures Neck: Neck: Yes normal v isual inspection, Yes full ROM, Yes no meningeal signs , Yes trachea midl ine and Yes supple Chest: Chest palpation & inspection: normal inspection of the chest Resp: Diminished breath sounds throughout; no appreciable ov ert rales, rhonchi , wheezing Effo rt & Inspection: n ormal respiratory effort Cardio: Rate: regular rate Rhythm: regular rhythm GI: Inspection: Yes no rmal to inspection , No Abdominal wal l edema and No dis tended Palpation (GI): Soft to palp ation, not firm, n ontender, no guard ing and not rigid Skin: General skin exam: no rashes or lesi ons noted Neuro: General: oriented to person, oriente d to place, tone n ormal, moves all e xtremities, no men ingeal signs and n o focal motor defi cits Extrem: General: Yes serina l to inspection, Y es full ROM, Yes c apillary refill no rmal and Yes no cl ubbing, cyanosis o r edema Psych: Appearance: grossl y normal Vital Signs: Vital Signs: Last Vital Signs Temp 98.4 F 04/18/25 15:37 Pulse 68 04/18/25 15:37 Resp 16 04/18/25 15:37 BP 126/60 04/18/25 15:37 Pulse Ox 92 04/18/25 15:37 O2 Del Method Nasal Cannula 04/18/25 15:37 O2 Flow Rate 2 04/18/25 15:37 BMI result Body Mass Index 26.2 Objective Data Active Medications Acetaminophen (Acetaminophen Supp 650 Mg Supp.Rect) 650 mg DE Q6H PRN PRN Reason: Pain, Moderate(Pain Scale 4-6) Albuterol/Ipratropium (Albuterol/Iprat 2.5/0.5mg 3 Ml Ampul.Neb) 3 ml INHALE RQ4H WHILE AWAKE PRN PRN Reason: Wheezing Baclofen (Baclofen 10 Mg Tablet) 15 mg PO TID [facility] Last Admin: 04/18/25 15:08 Dose: 15 mg Documented By: MURTAZA Enoxaparin Sodium (Enoxaparin Sodium 40 Mg/0.4 Ml Syringe) 40 mg SUBCUT Q24H [facility] Last Admin: 04/18/25 15:08 Dose: 40 mg Documented By: MURTAZA Piperacillin Sod/Tazobactam (Sod 4.5 gm/ Sodium Chloride) 100 mls @ 200 mls/hr IV Q6H [facility] Last Infusion: 04/18/25 19:04 Dose: Infused Documented By: BUSSIARMANDO Latanoprost (Latanoprost 0.005 % Ophth Elizabeth 2.5 Ml Drops) 1 drop EYE-BOTH BEDTIME [facility] Last Admin: 04/17/25 22:35 Dose: Not Given Documented By: SUSANA Non-Admin Reason: Med Not Available Levetiracetam (Levetiracetam 1,000 Mg Tablet) 1,000 mg PO BID [facility] Last Admin: 04/18/25 08:23 Dose: 1,000 mg Documented By: MURTAZA Melatonin (Melatonin 3 Mg Tablet) 6 mg PO BEDTIME [facility] Last Admin: 04/17/25 21:46 Dose: 6 mg Documented By: SUSANA Sodium Chloride (0.9 % Sodium Chloride Flush 3 Ml Syringe) 3 ml IVFLUSH QSHIFT [facility] Last Admin: 04/18/25 15:08 Dose: 3 ml Documented By: MURTAZA Labs 04/18/25 07:10 04/18/25 07:10 Labs: Laboratory Results - last 24 hr 04/18/25 07:10 MCV 92.4 MCH 29.8 MCHC 32.2 RDW 14.1 Plt Count 102 L MPV 10.0 Immature Gran % (Auto) 1.8 H Neut % (Auto) 75.7 H Lymph % (Auto) 10.8 L Todd % (Auto) 8.4 Eos % (Auto) 3.0 Baso % (Auto) 0.3 Lymph # (Auto) 0.7 L Todd # (Auto) 0.5 Eos # (Auto) 0.2 Baso # (Auto) 0.0 Abs Immat Gran (auto) 0.11 H Absolute Neuts (auto) 4.6 Absolute Nucleated RBC 0.000 Nucleated RBC % (auto) 0.0 Anion Gap 11 L Estim Creat Clear Calc 107.2 Estimated GFR > 60 Random Glucose 77 Calcium 9.6 Phosphorus 2.9 Magnesium 1.9 Microbiology Microbiology Results: Microbiology 04/15/25 Unknown Urine Culture - Final Urine Catheterized - Straight Catheter Streptococcus viridans group 04/15/25 14:28 Blood Culture - Preliminary Blood - Venous No growth after 48 hours. 04/15/25 14:25 Blood Culture - Preliminary Blood - Venous No growth after 48 hours. Assessment and Plan (1) Hypotension: Status: Acute (2) Sepsis with acute organ dysfunction and septic shock: Status: Acute (3) Chronic back pain: Status: Acute (4) Hypoxia: Status: Acute (5) Pneumonia: Status: Acute (6) Acute respiratory failure with hypoxia: Status: Acute Plan 69-year-old male with TBI, epilepsy, Hodgkin lymphoma, and dementia, admitted from SNF with acute hypoxic respiratory failure and septic shock due to pneumonia, now stabilized and transferred from MICU to the medical floor. Pneumonia (Healthcare-associated, right lower lobe) Recent diagnosis of pneumonia at [facility], confirmed by chest X-ray (RLL infiltrate), presenting with hypoxia and increased O2 requirements. Treated empirically with broad-spectrum antibiotics (initially ceftriaxone, then zosyn; vancomycin added and discontinued after negative MRSA screen). PLAN: Continue current antibiotic regimen; de-escalate based on cultures and clinical improvement. Monitor for clinical signs of improvement (O2 requirements, fever, WBC). Repeat chest imaging if clinical status worsens. Pulmonary hygiene and incentive spirometry as tolerated. Sepsis with Acute Organ Dysfunction and Septic Shock (Resolved) Presented with hypotension, hypothermia, lactic acidosis, and bandemia. Required vasopressors (norepinephrine) and aggressive IV fluids. Now off vasopressors and hemodynamically stable. PLAN: Monitor vital signs and perfusion parameters. Serial lactate and metabolic panels to ensure resolution. Maintain euvolemia; avoid fluid overload. Monitor for new/worsening organ dysfunction. Acute Hypoxic Respiratory Failure Initially required 5L NC, now weaned to 1L NC with SpO2 92?95%. Diminished breath sounds, no rales/wheezing. PLAN: Continue to wean supplemental O2 as tolerated. Monitor for increased work of breathing or desaturation. Pulmonary toilet and mobilization as able. Encephalopathy (Toxic-metabolic, baseline dementia/TBI) Altered mental status on admission, likely multifactorial (sepsis, hypoxia, underlying dementia/TBI). Now more alert and oriented to person/place. PLAN: Monitor mental status and document changes. Avoid FOREIGN BROADCAST SPECIALIST depressants; minimize sedating medications. Ensure adequate hydration and correct metabolic derangements. Reassess for other causes if no improvement. Thrombocytopenia and Normocytic Anemia Platelets low (jarrod ?103?111), Hgb 10?12.7, likely multifactorial (sepsis, chronic disease, possible marrow suppression from lymphoma). PLAN: Trend CBC daily. Monitor for bleeding. No transfusion unless symptomatic or Hgb <7. Hematology consult if persistent or worsening cytopenias. Acute Kidney Injury (Improved) Initial BUN/Cr elevation (BUN 35, Cr 1.05), likely pre-renal from sepsis/hypoperfusion. Now improved with fluids. PLAN: Monitor renal function and electrolytes. Maintain euvolemia. Avoid nephrotoxins. Electrolyte Abnormalities Mild hypophosphatemia (2.6?2.7), mild hyperchloremia, transient lactic acidosis. PLAN: Replete electrolytes as needed. Monitor daily BMP/Mg/Phos. Chronic Conditions - Epilepsy - TBI - Hodgkin Lymphoma - BPH - GERD - Chronic Pain DVT: Enoxaparin 40mg OD SQ CODE: DNR/DNI Total time managing care of this patient today: 45 minutes. Quality Stroke Does the patient have a stroke diagnosis?: No VTE Prior VTE?: No VTE Risk Level:: Medical - moderate - high VTE Device Contraindication: N/A - Device Ordered VTE Drug Contraindication: N/A - Med Ordered
[2025-04-18 20:00] VITALS: BP 133/70; PULSE 81; RESP 18; TEMP 36.2; O2SAT 95
[2025-04-18] MEDS: Latanoprost 0.005 % Ophth Sol 2.5 ML DROPS 1 DROP EYE-BOTH (20:10)
[2025-04-19] VITALS: BP 132/71; PULSE 75; RESP 18; TEMP 36.5; O2SAT 94
[2025-04-19 04:00] VITALS: BP 141/75; PULSE 74; RESP 18; TEMP 36.1; O2SAT 92
[2025-04-19 06:48] LABS: MANUAL DIFF FLAG NO
[2025-04-19 06:55] LABS: Hematocrit 36.1 % (42.0-52.0); Hemoglobin 11.4 g/dl (14.0-18.0); Imm Gran Abs Auto 0.13 X10*3/uL (0.00-0.03); Imm Gran Pct Auto 2.5 % (0.0-0.4); Lymphocytes Absolute Auto 0.6 X10*3/uL (1.2-4.9); Mean Corpuscular HGB Conc 31.6 g/dl (31.0-36.0); Mean Corpuscular Hemoglobin 29.6 pg (27.0-33.0); Mean Corpuscular Volume 93.8 fL (80.0-98.0); NRBC Abs Auto 0.000 X10*3/uL (0.0-0.012); NRBC Pct Auto 0.0 /100WBC (0.0-0.2); Platelet Count 110 X10*3/uL (160-400); Red Blood Count 3.85 X10*6/uL (4.60-5.80); White Blood Count 5.3 X10*3/uL (4.8-10.8)
[2025-04-19 07:09] LABS: Anion Gap 12 (12-20); Blood Urea Nitrogen 22 mg/dL (9-16); Calcium 9.5 mg/dL (8.4-10.2); Carbon Dioxide 27 mmol/L (22-29); Chloride 105 mmol/L (96-108); Creatinine Clr Calc Pharmacy 107.2; Estimated Glomerular Filt Rate > 60; Magnesium 2.1 mg/dL (1.6-2.6); Potassium 4.1 mmol/L (3.3-5.1); Sodium 140 mmol/L (135-145)
[2025-04-19 07:12] VITALS: BP 133/78; PULSE 72; RESP 20; TEMP 36.4; O2SAT 93
[2025-04-19] MEDS: 0.9 % Sodium Chloride Flush 3 ML SYRINGE IVFLUSH ×2 (09:25→17:12)
--- NOTE | 2025-04-19 10:05 | MHC.SL.SWA ---
Speech Pathologist Impression: Risk of Aspiration Due to: Dysphasia Diet Status: Recommend continue on NECTAR THICK Liquids and Ground/Mechanical (NDD2), pills crushed in puree. Continue support/1-1 supervision at meals. Liquid Consistency and Strategies for Safe Swallow: Liquid Intake Recommendation: Peggs Thick Liquid Intake Strategies: Small Sips No Straws Solid Food Consistency: Dietary Recommendations: Grnd/Mech Altered (NDD2) Additional Modifications to Solid Foods: Oral Medication Intake: Crushed with Puree Please contact the pharmacy regarding appropriate crushable or liquid drug formulations that are available whenever modified delivery is recommended. Compensatory Strategies and Precautions to be Taken for Safe Swallow: Sitting Upright (90 deg) No Straw Liquids from Cup Small Bites and Sips Alternate Liquids/Solids Supervision While Eating and Drinking for Safe Swallow: Direct Supervision (1:1) Foods to Avoid: Swallowing Recommended Treatments: Compens. Strategy Educat. Recommendation for Speech: Inpatient Speech Therapy Comment: Patient seen this morning during breakfast for ST interventions. Patient repositioned and HOB elevated prior to PO intake. Patient seen with breakfast of NDD2, Peggs Thick Liquids. Patient only accepting minimal amount of PO this date; consuming oatmeal and multiple small self-administered sips of NTLs via cup. Patient with no overt s/sx of penetration/aspiration. Overtime patient's posture decreasing, listing towards R side. Patient requiring moderate encouragement to increase PO intake this date. Patient requiring moderate cues to modify self-feeding rate and bolus size. Patient with perseverations of needing to use the bathroom and breakfast being too early. RN notified and entering room as ST leaving. Patient tolerating current diet, recommend continuing. Also recommend 1:1 supervision during all meals (d/t impulsivity/known cognitive deficits), patient able to self-feed with monitoring. Frequency/Duration: M-F daily Date Range for Service Req: Timeline to reassess: Laboratory Technician Clinican/Clinical Fellow: No Supervisory Statement: I have reviewed and agree with the student/clinical fellow's documentation: N/A Speech Language Pathologist: Majo Pool M.A., CCC-SPRING ASSEMBLER SUPERVISOR
[2025-04-19 11:16] VITALS: BP 118/58; PULSE 66; RESP 20; TEMP 36.5; O2SAT 97
--- NOTE | 2025-04-19 14:45 | P.PNIM_ITS ---
Subjective Subjective Date of Service: 04/19/25 Interval History: No new complaints or issues today. Still feels mental fog is persistent. Denies rigors, chills, fevers, dyspnea, diaphoresis, chest pain. Review of Systems Review of Systems: Yes all other systems are reviewed and are negative Physical Exam 2 Exam: Exam: General: A&O x3, oriented to time place person; reports persistent mental fog. Comfortable, no pain Cardiac: S1, S2 auscultated with no S3/4, no MRG. Well perfused. Respiratory: Decreased inspiratory and expiratory breath times bilaterally, with bibasilar crepitations auscultated, reduced breath sounds at the mid zones bilaterally, no wheezing auscultated in the upper zones. No cyanosis centrally or peripherally GI/ : No abdominal pain on palpation, no masses or distentions. MSK: Normal ambulation without pain at bony prominences or musculature Extremities: Mild bilateral edema Neurological: Normal neurological examination on overview, without obvious CN II-XII abnormalities. Vital Signs: Vital Signs: Last Vital Signs Temp 97.7 F 04/19/25 11:16 Pulse 66 04/19/25 11:16 Resp 20 04/19/25 11:16 BP 118/58 L 04/19/25 11:16 Pulse Ox 97 04/19/25 11:16 O2 Del Method Nasal Cannula 04/19/25 11:16 O2 Flow Rate 2 04/19/25 11:16 BMI result Body Mass Index 0.2 Objective Data Active Medications Acetaminophen (Acetaminophen Supp 650 Mg Supp.Rect) 650 mg FL Q6H PRN PRN Reason: Pain, Moderate(Pain Scale 4-6) Albuterol/Ipratropium (Albuterol/Iprat 2.5/0.5mg 3 Ml Ampul.Neb) 3 ml INHALE RQ4H WHILE AWAKE PRN PRN Reason: Wheezing Baclofen (Baclofen 10 Mg Tablet) 15 mg PO TID [facility] Last Admin: 04/19/25 13:38 Dose: 15 mg Documented By: SAVANAH Enoxaparin Sodium (Enoxaparin Sodium 40 Mg/0.4 Ml Syringe) 40 mg SUBCUT Q24H [facility] Last Admin: 04/18/25 15:08 Dose: 40 mg Documented By: MURTAZA Piperacillin Sod/Tazobactam (Sod 4.5 gm/ Sodium Chloride) 100 mls @ 200 mls/hr IV Q6H [facility] Last Infusion: 04/19/25 14:36 Dose: Infused Documented By: SAVANAH Latanoprost (Latanoprost 0.005 % Ophth Elizabeth 2.5 Ml Drops) 1 drop EYE-BOTH BEDTIME [facility] Last Admin: 04/18/25 20:10 Dose: 1 drop Documented By: BOLA Levetiracetam (Levetiracetam 1,000 Mg Tablet) 1,000 mg PO BID [facility] Last Admin: 04/19/25 09:13 Dose: 1,000 mg Documented By: SAVANAH Melatonin (Melatonin 3 Mg Tablet) 6 mg PO BEDTIME [facility] Last Admin: 04/18/25 20:10 Dose: 6 mg Documented By: BOLA Sodium Chloride (0.9 % Sodium Chloride Flush 3 Ml Syringe) 3 ml IVFLUSH QSHIFT [facility] Last Admin: 04/19/25 09:25 Dose: 3 ml Documented By: SAVANAH Labs 04/19/25 06:34 04/19/25 06:34 Labs: Laboratory Results - last 24 hr 04/19/25 06:34 MCV 93.8 MCH 29.6 MCHC 31.6 RDW 14.0 Plt Count 110 L MPV 10.0 Immature Gran % (Auto) 2.5 H Neut % (Auto) 73.4 H Lymph % (Auto) 11.6 L [place] % (Auto) 8.7 Eos % (Auto) 3.6 Baso % (Auto) 0.2 Lymph # (Auto) 0.6 L [place] # (Auto) 0.5 Eos # (Auto) 0.2 Baso # (Auto) 0.0 Abs Immat Gran (auto) 0.13 H Absolute Neuts (auto) 3.9 Absolute Nucleated RBC 0.000 Nucleated RBC % (auto) 0.0 Anion Gap 12 Estim Creat Clear Calc 107.2 Estimated GFR > 60 Random Glucose 79 Calcium 9.5 Phosphorus 2.6 L Magnesium 2.1 Microbiology Microbiology Results: Microbiology 04/15/25 Unknown Urine Culture - Final Urine Catheterized - Straight Catheter Streptococcus viridans group Assessment and Plan (1) Hypotension: Status: Acute (2) Sepsis with acute organ dysfunction and septic shock: Status: Acute (3) Chronic back pain: Status: Acute (4) Hypoxia: Status: Acute (5) Acute respiratory failure with hypoxia: Status: Acute (6) Pneumonia: Status: Acute Plan 69-year-old male with TBI, epilepsy, Hodgkin lymphoma, and dementia, admitted from [facility] with acute hypoxic respiratory failure and septic shock due to pneumonia, now stabilized and transferred from MICU to the medical floor. Pneumonia (Healthcare-associated, right lower lobe) Recent diagnosis of pneumonia at [facility], confirmed by chest X-ray (RLL infiltrate), presenting with hypoxia and increased O2 requirements. Treated empirically with broad-spectrum antibiotics (initially ceftriaxone, then zosyn; vancomycin added and discontinued after negative MRSA screen). PLAN: Continue current antibiotic regimen; de-escalate based on cultures and clinical improvement. Monitor for clinical signs of improvement (O2 requirements, fever, WBC). Repeat chest imaging if clinical status worsens. Pulmonary hygiene and incentive spirometry as tolerated. Sepsis with Acute Organ Dysfunction and Septic Shock (Resolved) Presented with hypotension, hypothermia, lactic acidosis, and bandemia. Required vasopressors (norepinephrine) and aggressive IV fluids. Now off vasopressors and hemodynamically stable. PLAN: Monitor vital signs and perfusion parameters. Serial lactate and metabolic panels to ensure resolution. Maintain euvolemia; avoid fluid overload. Monitor for new/worsening organ dysfunction. Acute Hypoxic Respiratory Failure Initially required 5L NC, now weaned to 1L NC with SpO2 92?95%. Diminished breath sounds, no rales/wheezing. PLAN: Continue to wean supplemental O2 as tolerated. Monitor for increased work of breathing or desaturation. Pulmonary toilet and mobilization as able. Encephalopathy (Toxic-metabolic, baseline dementia/TBI) Altered mental status on admission, likely multifactorial (sepsis, hypoxia, underlying dementia/TBI). Now more alert and oriented to person/place. PLAN: Monitor mental status and document changes. Avoid BOX PRESS OPERATOR depressants; minimize sedating medications. Ensure adequate hydration and correct metabolic derangements. Reassess for other causes if no improvement. Thrombocytopenia and Normocytic Anemia Platelets low (jarrod ?[id number]), Hgb 10?12.7, likely multifactorial (sepsis, chronic disease, possible marrow suppression from lymphoma). PLAN: Trend CBC daily. Monitor for bleeding. No transfusion unless symptomatic or Hgb <7. Hematology consult if persistent or worsening cytopenias. Acute Kidney Injury (Improved) Initial BUN/Cr elevation (BUN 35, Cr 1.05), likely pre-renal from sepsis/hypoperfusion. Now improved with fluids. PLAN: Monitor renal function and electrolytes. Maintain euvolemia. Avoid nephrotoxins. Electrolyte Abnormalities Mild hypophosphatemia (2.6?2.7), mild hyperchloremia, transient lactic acidosis. PLAN: Replete electrolytes as needed. Monitor daily BMP/Mg/Phos. Chronic Conditions - Epilepsy - TBI - Hodgkin Lymphoma - BPH - GERD - Chronic Pain DVT: Enoxaparin 40mg OD SQ CODE: DNR/DNI Total time managing care of this patient today: 45 minutes. Quality Stroke Does the patient have a stroke diagnosis?: No VTE Prior VTE?: No VTE Risk Level:: Medical - moderate - high VTE Device Contraindication: N/A - Device Ordered VTE Drug Contraindication: N/A - Med Ordered
[2025-04-19 15:17] VITALS: BP 125/57; PULSE 76; RESP 18; TEMP 36.2; O2SAT 95
[2025-04-19] MEDS: Acetaminophen Supp 650 MG SUPP.RECT PR (17:12)
[2025-04-19 19:13] VITALS: BP 105/55; PULSE 90; RESP 18; TEMP 36.3; O2SAT 93
[2025-04-19] MEDS: Latanoprost 0.005 % Ophth Sol 2.5 ML DROPS 1 DROP EYE-BOTH (21:15)
[2025-04-20] VITALS: BP 128/78; PULSE 72; RESP 18; TEMP 36.1; O2SAT 96
[2025-04-20] MEDS: 0.9 % Sodium Chloride Flush 3 ML SYRINGE IVFLUSH ×4 (02:11→20:11)
[2025-04-20 03:13] VITALS: BP 129/61; PULSE 73; RESP 17; TEMP 36.2; O2SAT 93
[2025-04-20 07:02] VITALS: BP 132/60; PULSE 68; RESP 19; TEMP 36.8; O2SAT 92
[2025-04-20 07:27] LABS: MANUAL DIFF FLAG NO
[2025-04-20 07:40] LABS: Hematocrit 35.4 % (42.0-52.0); Hemoglobin 11.0 g/dl (14.0-18.0); Imm Gran Abs Auto 0.19 X10*3/uL (0.00-0.03); Imm Gran Pct Auto 4.3 % (0.0-0.4); Lymphocytes Absolute Auto 0.7 X10*3/uL (1.2-4.9); Mean Corpuscular HGB Conc 31.1 g/dl (31.0-36.0); Mean Corpuscular Hemoglobin 28.9 pg (27.0-33.0); Mean Corpuscular Volume 93.2 fL (80.0-98.0); NRBC Abs Auto 0.000 X10*3/uL (0.0-0.012); NRBC Pct Auto 0.0 /100WBC (0.0-0.2); Platelet Count 117 X10*3/uL (160-400); Red Blood Count 3.80 X10*6/uL (4.60-5.80); White Blood Count 4.5 X10*3/uL (4.8-10.8)
[2025-04-20 07:54] LABS: Alanine Aminotransferase 48 U/L (0-40); Albumin Level 3.4 g/dL (3.5-5.0); Alkaline Phosphatase 222 U/L (39-117); Anion Gap 10 (12-20); Aspartate Amino Transferase 45 U/L (5-37); Blood Urea Nitrogen 22 mg/dL (9-16); Calcium 9.6 mg/dL (8.4-10.2); Carbon Dioxide 28 mmol/L (22-29); Chloride 105 mmol/L (96-108); Creatinine Clr Calc Pharmacy 119.4; Estimated Glomerular Filt Rate > 60; Magnesium 2.1 mg/dL (1.6-2.6); Potassium 3.9 mmol/L (3.3-5.1); Sodium 139 mmol/L (135-145); Total Protein 6.8 g/dL (6.5-8.0)
[2025-04-20 08:28] VITALS: BMI 30.8
--- NOTE | 2025-04-20 13:02 | MHC.SL.SWA ---
Speech Pathologist Impression: Risk of Aspiration, Mild Oropharyngeal Dysphagia Dysphasia Diet Status: Recommend continue on NECTAR THICK Liquids and Ground/Mechanical (NDD2), pills crushed in puree. Continue support/1-1 supervision at meals. Liquid Consistency and Strategies for Safe Swallow: Liquid Intake Recommendation: Abbott Thick Liquid Intake Strategies: Small Sips No Straws Solid Food Consistency: Dietary Recommendations: Grnd/Mech Altered (NDD2) Additional Modifications to Solid Foods: Oral Medication Intake: Crushed with Puree Please contact the pharmacy regarding appropriate crushable or liquid drug formulations that are available whenever modified delivery is recommended. Compensatory Strategies and Precautions to be Taken for Safe Swallow: Sitting Upright (90 deg) No Straw Liquids from Cup Small Bites and Sips Alternate Liquids/Solids Supervision While Eating and Drinking for Safe Swallow: Direct Supervision (1:1) Foods to Avoid: Swallowing Recommended Treatments: Compens. Strategy Educat. Recommendation for Speech: Inpatient Speech Therapy Comment: Recommended diet written on whiteboad in patient's room Frequency/Duration: M-F daily Date Range for Service Req: Timeline to reassess: [place] Clinican/Clinical Fellow: No Supervisory Statement: I have reviewed and agree with the student/clinical fellow's documentation: N/A Speech Language Pathologist: Natasha Thomas M.A., CCC-LAUNDRETTE OWNER
--- NOTE | 2025-04-20 13:13 | P.PNIM_ITS ---
Subjective Subjective Date of Service: 04/20/25 Interval History: Patient reports he feels horrible today. Unable to endorsed why. He denies dyspnea, chest pain, palpitations, dizziness, diaphoresis. He denies abdominal distention, loose stools, constipation. He is passing flatus. Urinating well. Reports persistent mental fog Review of Systems Review of Systems: Yes Unobtainable due to mental condition and Unobtainable due to mental status Physical Exam 2 Exam: Exam: General: A&O x3, oriented to time place person; reports persistent mental fog. Comfortable, no pain Cardiac: S1, S2 auscultated with no S3/4, no MRG. Well perfused. Respiratory: Decreased inspiratory and expiratory breath times bilaterally, with bibasilar crepitations auscultated, reduced breath sounds at the mid zones bilaterally, no wheezing auscultated in the upper zones. No cyanosis centrally or peripherally GI/ : No abdominal pain on palpation, no masses or distentions. MSK: Normal ambulation without pain at bony prominences or musculature Extremities: Mild bilateral edema Neurological: Normal neurological examination on overview, without obvious CN II-XII abnormalities. Vital Signs: Vital Signs: Last Vital Signs Temp 98.2 F 04/20/25 07:02 Pulse 68 04/20/25 07:02 Resp 19 04/20/25 07:02 BP 132/60 04/20/25 07:02 Pulse Ox 92 04/20/25 07:02 O2 Del Method Nasal Cannula 04/20/25 07:02 O2 Flow Rate 2 04/20/25 07:02 BMI result Body Mass Index 30.8 Objective Data Active Medications Acetaminophen (Acetaminophen 325 Mg Tablet) 975 mg PO Q6H PRN PRN Reason: chronic back pain 1-3,spasms Last Admin: 04/20/25 03:34 Dose: 975 mg Documented By: TIFFANY Albuterol/Ipratropium (Albuterol/Iprat 2.5/0.5mg 3 Ml Ampul.Neb) 3 ml INHALE RQ4H WHILE AWAKE PRN PRN Reason: Wheezing Baclofen (Baclofen 10 Mg Tablet) 15 mg PO TID [facility] Last Admin: 04/20/25 08:13 Dose: 15 mg Documented By: ERNESTO Enoxaparin Sodium (Enoxaparin Sodium 40 Mg/0.4 Ml Syringe) 40 mg SUBCUT Q24H [facility] Last Admin: 04/19/25 17:07 Dose: 40 mg Documented By: SAVANAH Piperacillin Sod/Tazobactam (Sod 4.5 gm/ Sodium Chloride) 100 mls @ 200 mls/hr IV Q6H [facility] Last Infusion: 04/20/25 09:42 Dose: Infused Documented By: ERNESTO Latanoprost (Latanoprost 0.005 % Ophth Elizabeth 2.5 Ml Drops) 1 drop EYE-BOTH BEDTIME [facility] Last Admin: 04/19/25 21:15 Dose: 1 drop Documented By: TIFFANY Levetiracetam (Levetiracetam 1,000 Mg Tablet) 1,000 mg PO BID [facility] Last Admin: 04/20/25 08:13 Dose: 1,000 mg Documented By: ERNESTO Melatonin (Melatonin 3 Mg Tablet) 6 mg PO BEDTIME [facility] Last Admin: 04/19/25 20:00 Dose: 6 mg Documented By: TIFFANY Sodium Chloride (0.9 % Sodium Chloride Flush 3 Ml Syringe) 3 ml IVFLUSH QSHIFT [facility] Last Admin: 04/20/25 08:14 Dose: 3 ml Documented By: ERNESTO Labs 04/20/25 06:45 04/20/25 06:45 Labs: Laboratory Results - last 24 hr 04/20/25 06:45 MCV 93.2 MCH 28.9 MCHC 31.1 RDW 14.0 Plt Count 117 L MPV 9.9 Immature Gran % (Auto) 4.3 H Neut % (Auto) 62.1 Lymph % (Auto) 16.4 L [place] % (Auto) 12.3 H Eos % (Auto) 4.5 H Baso % (Auto) 0.4 Lymph # (Auto) 0.7 L [place] # (Auto) 0.6 Eos # (Auto) 0.2 Baso # (Auto) 0.0 Abs Immat Gran (auto) 0.19 H Absolute Neuts (auto) 2.8 Absolute Nucleated RBC 0.000 Nucleated RBC % (auto) 0.0 Anion Gap 10 L Estim Creat Clear Calc 119.4 Estimated GFR > 60 Random Glucose 72 Calcium 9.6 Phosphorus 2.6 L Magnesium 2.1 Total Bilirubin 0.7 AST 45 H ALT 48 H Alkaline Phosphatase 222 H Total Protein 6.8 Albumin 3.4 L Assessment and Plan (1) Hypotension: Status: Acute (2) Sepsis with acute organ dysfunction and septic shock: Status: Acute (3) Chronic back pain: Status: Acute (4) Pneumonia: Status: Acute (5) Acute respiratory failure with hypoxia: Status: Acute Plan 69-year-old male with TBI, epilepsy, Hodgkin lymphoma, and dementia, admitted from [facility] with acute hypoxic respiratory failure and septic shock due to pneumonia, now stabilized and transferred from MICU to the medical floor. Pneumonia (Healthcare-associated, right lower lobe) Recent diagnosis of pneumonia at [facility], confirmed by chest X-ray (RLL infiltrate), presenting with hypoxia and increased O2 requirements. Treated empirically with broad-spectrum antibiotics (initially ceftriaxone, then zosyn; vancomycin added and discontinued after negative MRSA screen). PLAN: Continue current antibiotic regimen; de-escalate based on cultures and clinical improvement. Monitor for clinical signs of improvement (O2 requirements, fever, WBC). Repeat chest imaging if clinical status worsens. Pulmonary hygiene and incentive spirometry as tolerated. Sepsis with Acute Organ Dysfunction and Septic Shock (Resolved) Presented with hypotension, hypothermia, lactic acidosis, and bandemia. Required vasopressors (norepinephrine) and aggressive IV fluids. Now off vasopressors and hemodynamically stable. PLAN: Monitor vital signs and perfusion parameters. Serial lactate and metabolic panels to ensure resolution. Maintain euvolemia; avoid fluid overload. Monitor for new/worsening organ dysfunction. Acute Hypoxic Respiratory Failure Initially required 5L NC, now weaned to 1L NC with SpO2 92?95%. Diminished breath sounds, no rales/wheezing. PLAN: Continue to wean supplemental O2 as tolerated. Monitor for increased work of breathing or desaturation. Pulmonary toilet and mobilization as able. Encephalopathy (Toxic-metabolic, baseline dementia/TBI) Altered mental status on admission, likely multifactorial (sepsis, hypoxia, underlying dementia/TBI). Now more alert and oriented to person/place. PLAN: Monitor mental status and document changes. Avoid SHIP PILOT depressants; minimize sedating medications. Ensure adequate hydration and correct metabolic derangements. Reassess for other causes if no improvement. Thrombocytopenia and Normocytic Anemia Platelets low (jarrod ?[id number]), Hgb 10?12.7, likely multifactorial (sepsis, chronic disease, possible marrow suppression from lymphoma). PLAN: Trend CBC daily. Monitor for bleeding. No transfusion unless symptomatic or Hgb <7. Hematology consult if persistent or worsening cytopenias. Acute Kidney Injury (Improved) Initial BUN/Cr elevation (BUN 35, Cr 1.05), likely pre-renal from sepsis/hypoperfusion. Now improved with fluids. PLAN: Monitor renal function and electrolytes. Maintain euvolemia. Avoid nephrotoxins. Electrolyte Abnormalities Mild hypophosphatemia (2.6?2.7), mild hyperchloremia, transient lactic acidosis. PLAN: Replete electrolytes as needed. Monitor daily BMP/Mg/Phos. Chronic Conditions - Epilepsy - TBI - Hodgkin Lymphoma - BPH - GERD - Chronic Pain DVT: Enoxaparin 40mg OD SQ CODE: DNR/DNI Total time managing care of this patient today: 35 minutes. Quality Stroke Does the patient have a stroke diagnosis?: No VTE Prior VTE?: No VTE Risk Level:: Medical - moderate - high VTE Device Contraindication: N/A - Device Ordered VTE Drug Contraindication: N/A - Med Ordered
[2025-04-20 15:33] VITALS: BP 142/63; PULSE 76; RESP 18; TEMP 36.4; O2SAT 93
--- NOTE | 2025-04-20 15:55 | MHC.CM.PN ---
per rounds pt will be ready for dc in 1 to 2 days plan return to [facility]
[2025-04-20 20:00] VITALS: BP 122/72; PULSE 81; RESP 18; TEMP 36.5; O2SAT 93
[2025-04-20] MEDS: Latanoprost 0.005 % Ophth Sol 2.5 ML DROPS 1 DROP EYE-BOTH (21:12)
[2025-04-20 23:16] VITALS: BP 120/63; PULSE 65; RESP 18; TEMP 36.4; O2SAT 95
[2025-04-21] VITALS (7 sets, daily range): BP systolic 109–145; BP diastolic 48–78; PULSE 62–69; RESP 14–18; TEMP 36.1–36.9; O2SAT 90–95
[2025-04-21 07:17] LABS: MANUAL DIFF FLAG NO
[2025-04-21 07:25] LABS: Hematocrit 34.7 % (42.0-52.0); Hemoglobin 11.0 g/dl (14.0-18.0); Imm Gran Abs Auto 0.18 X10*3/uL (0.00-0.03); Imm Gran Pct Auto 3.7 % (0.0-0.4); Lymphocytes Absolute Auto 0.7 X10*3/uL (1.2-4.9); Mean Corpuscular HGB Conc 31.7 g/dl (31.0-36.0); Mean Corpuscular Hemoglobin 29.4 pg (27.0-33.0); Mean Corpuscular Volume 92.8 fL (80.0-98.0); NRBC Abs Auto 0.000 X10*3/uL (0.0-0.012); NRBC Pct Auto 0.0 /100WBC (0.0-0.2); Platelet Count 132 X10*3/uL (160-400); Red Blood Count 3.74 X10*6/uL (4.60-5.80); White Blood Count 4.8 X10*3/uL (4.8-10.8)
[2025-04-21 07:41] LABS: Magnesium 2.2 mg/dL (1.6-2.6)
[2025-04-21] MEDS: 0.9 % Sodium Chloride Flush 3 ML SYRINGE IVFLUSH ×3 (08:47→20:11)
--- NOTE | 2025-04-21 13:46 | P.PNIM_ITS ---
Subjective Subjective Date of Service: 04/21/25 Interval History: Confused and altered today. Attempted to ask patient how he was doing. The patient was very dismissive requesting me to leave, unless I was here to help him defecate I asked the patient to clarify - and offered to return. Patient became irate. Refused exam & evaluation. Review of Systems Review of Systems: Yes Unobtainable due to mental condition and Unobtainable due to mental status Physical Exam 2 Exam: Exam: General: A&O x3, oriented to time place person NOT to situation Cardiac: Exam refused Respiratory: Exam refused GI/ : Exam refused MSK: Exam refused Extremities: Exam refused Neurological: Exam refused Psychology: Irate, irritable, short term memory loss Vital Signs: Vital Signs: Last Vital Signs Temp 98.1 F 04/21/25 11:03 Pulse 68 04/21/25 11:03 Resp 17 04/21/25 11:03 BP 109/60 04/21/25 11:03 Pulse Ox 91 L 04/21/25 11:03 O2 Del Method Room Air 04/21/25 11:03 O2 Flow Rate 2 04/21/25 08:00 BMI result Body Mass Index 30.8 Objective Data Active Medications Acetaminophen (Acetaminophen 325 Mg Tablet) 975 mg PO Q6H PRN PRN Reason: chronic back pain 1-3,spasms Last Admin: 04/20/25 03:34 Dose: 975 mg Documented By: TIFFANY Albuterol/Ipratropium (Albuterol/Iprat 2.5/0.5mg 3 Ml Ampul.Neb) 3 ml INHALE RQ4H WHILE AWAKE PRN PRN Reason: Wheezing Baclofen (Baclofen 10 Mg Tablet) 15 mg PO TID [facility] Last Admin: 04/21/25 08:41 Dose: 15 mg Documented By: JUVENAL Enoxaparin Sodium (Enoxaparin Sodium 40 Mg/0.4 Ml Syringe) 40 mg SUBCUT Q24H [facility] Last Admin: 04/20/25 17:34 Dose: 40 mg Documented By: ERNESTO Piperacillin Sod/Tazobactam (Sod 4.5 gm/ Sodium Chloride) 100 mls @ 200 mls/hr IV Q6H [facility] Last Infusion: 04/21/25 09:10 Dose: Infused Documented By: JUVENAL Latanoprost (Latanoprost 0.005 % Ophth [place] 2.5 Ml Drops) 1 drop EYE-BOTH BEDTIME [facility] Last Admin: 04/20/25 21:12 Dose: 1 drop Documented By: HARLAN Levetiracetam (Levetiracetam 1,000 Mg Tablet) 1,000 mg PO BID [facility] Last Admin: 04/21/25 08:47 Dose: 1,000 mg Documented By: JUVENAL Melatonin (Melatonin 3 Mg Tablet) 6 mg PO BEDTIME [facility] Last Admin: 04/20/25 20:09 Dose: 6 mg Documented By: HARLAN Sodium Chloride (0.9 % Sodium Chloride Flush 3 Ml Syringe) 3 ml IVFLUSH QSHIFT [facility] Last Admin: 04/21/25 08:47 Dose: 3 ml Documented By: JUVENAL Labs 04/21/25 06:35 04/20/25 06:45 Labs: Laboratory Results - last 24 hr 04/21/25 06:35 MCV 92.8 MCH 29.4 MCHC 31.7 RDW 13.9 Plt Count 132 L MPV 9.6 Immature Gran % (Auto) 3.7 H Neut % (Auto) 62.0 Lymph % (Auto) 15.1 L [place] % (Auto) 14.5 H Eos % (Auto) 4.3 H Baso % (Auto) 0.4 Lymph # (Auto) 0.7 L [place] # (Auto) 0.7 Eos # (Auto) 0.2 Baso # (Auto) 0.0 Abs Immat Gran (auto) 0.18 H Absolute Neuts (auto) 3.0 Absolute Nucleated RBC 0.000 Nucleated RBC % (auto) 0.0 Phosphorus 2.4 L Magnesium 2.2 Microbiology Microbiology Results: Microbiology 04/15/25 14:28 Blood Culture - Final Blood - Venous No growth after 5 days. 04/15/25 14:25 Blood Culture - Final Blood - Venous No growth after 5 days. Assessment and Plan (1) Acute respiratory failure with hypoxia: Status: Acute (2) Sepsis with acute organ dysfunction and septic shock: Status: Acute (3) Dementia: Status: Acute Plan 69-year-old male with TBI, epilepsy, Hodgkin lymphoma, and dementia, admitted from [facility] with acute hypoxic respiratory failure and septic shock due to pneumonia, now stabilized and transferred from MICU to the medical floor. Pneumonia (Healthcare-associated, right lower lobe) Recent diagnosis of pneumonia at [facility], confirmed by chest X-ray (RLL infiltrate), presenting with hypoxia and increased O2 requirements. Treated empirically with broad-spectrum antibiotics (initially ceftriaxone, then zosyn; vancomycin added and discontinued after negative MRSA screen). PLAN: - Continue zosyn - Pulmonary hygiene and incentive spirometry as tolerated. Sepsis with Acute Organ Dysfunction and Septic Shock (Resolved) Presented with hypotension, hypothermia, lactic acidosis, and bandemia. Required vasopressors (norepinephrine) and aggressive IV fluids. Now off vasopressors and hemodynamically stable. PLAN: - Monitor vital signs and perfusion parameters. - Maintain euvolemia; avoid fluid overload. Acute Hypoxic Respiratory Failure Initially required 5L NC, now weaned to 1L NC with SpO2 92?95%. Diminished breath sounds, no rales/wheezing. PLAN: - Wean O2 as tolerated - Pulmonary toilet and mobilization as able. Encephalopathy (Toxic-metabolic, baseline dementia/TBI) Altered mental status on admission, likely multifactorial (sepsis, hypoxia, underlying dementia/TBI). Now more alert and oriented to person/place. PLAN: - Monitor mental status and document changes. - Avoid RECORD FILING CLERK depressants; minimize sedating medications. Thrombocytopenia and Normocytic Anemia Platelets low (jarrod ?[id number]), Hgb 10?12.7, likely multifactorial (sepsis, chronic disease, possible marrow suppression from lymphoma). PLAN: - Trend CBC daily. - Monitor for bleeding. - Transfuse if symptomatic or Hgb <7. - Hematology consult if persistent or worsening cytopenias. Acute Kidney Injury (Improved) Initial BUN/Cr elevation (BUN 35, Cr 1.05), likely pre-renal from sepsis/hypoperfusion. Now improved with fluids. PLAN: - Monitor renal function and electrolytes. - Maintain euvolemia. - Avoid nephrotoxins. Electrolyte Abnormalities Mild hypophosphatemia (2.6?2.7), mild hyperchloremia, transient lactic acidosis. PLAN: - Replete electrolytes as needed. - Monitor daily BMP/Mg/Phos. Chronic Conditions - Epilepsy - TBI - Hodgkin Lymphoma - BPH - GERD - Chronic Pain DVT: Enoxaparin 40mg OD SQ CODE: DNR/DNI Total time managing care of this patient today: 35 minutes. Quality Stroke Does the patient have a stroke diagnosis?: No VTE Prior VTE?: No VTE Risk Level:: Medical - moderate - high VTE Device Contraindication: N/A - Device Ordered VTE Drug Contraindication: N/A - Med Ordered
[2025-04-21] MEDS: Latanoprost 0.005 % Ophth Sol 2.5 ML DROPS 1 DROP EYE-BOTH (20:11)
[2025-04-22 03:40] VITALS: BP 138/50; PULSE 70; RESP 18; TEMP 36.2; O2SAT 93
[2025-04-22 06:20] LABS: MANUAL DIFF FLAG NO
[2025-04-22 06:30] LABS: Hematocrit 34.5 % (42.0-52.0); Hemoglobin 11.0 g/dl (14.0-18.0); Imm Gran Abs Auto 0.11 X10*3/uL (0.00-0.03); Imm Gran Pct Auto 2.3 % (0.0-0.4); Lymphocytes Absolute Auto 0.8 X10*3/uL (1.2-4.9); Mean Corpuscular HGB Conc 31.9 g/dl (31.0-36.0); Mean Corpuscular Hemoglobin 29.6 pg (27.0-33.0); Mean Corpuscular Volume 93.0 fL (80.0-98.0); NRBC Abs Auto 0.000 X10*3/uL (0.0-0.012); NRBC Pct Auto 0.0 /100WBC (0.0-0.2); Platelet Count 158 X10*3/uL (160-400); Red Blood Count 3.71 X10*6/uL (4.60-5.80); White Blood Count 4.8 X10*3/uL (4.8-10.8)
[2025-04-22 06:45] LABS: Magnesium 2.3 mg/dL (1.6-2.6)
[2025-04-22 07:48] VITALS: BP 129/65; PULSE 64; RESP 18; TEMP 36.3; O2SAT 92
[2025-04-22] MEDS: 0.9 % Sodium Chloride Flush 3 ML SYRINGE IVFLUSH ×3 (07:51→20:04)
[2025-04-22 12:00] VITALS: BP 119/81; PULSE 86; RESP 16; TEMP 36.1; O2SAT 93
--- NOTE | 2025-04-22 12:47 | P.PNIM_ITS ---
Subjective Subjective Date of Service: 04/22/25 Interval History: Patient still states he feels terrible. Unable to explain why. Reports his breathing has improved compared to yesterday. Transitioned to room air. Refusing examination - informs me that he needs to pass a stool - requesting nurse. Will return & attempt examination again Review of Systems Review of Systems: Yes Unobtainable due to mental status Physical Exam 2 Exam: Exam: General: A&O x3, oriented to time place person NOT to situation Cardiac: Exam refused Respiratory: Exam refused GI/ : Exam refused MSK: Exam refused Extremities: Exam refused Neurological: Exam refused Psychology: Irate, irritable, short term memory loss Vital Signs: Vital Signs: Last Vital Signs Temp 97 F 04/22/25 12:00 Pulse 86 04/22/25 12:00 Resp 16 04/22/25 12:00 BP 119/81 04/22/25 12:00 Pulse Ox 93 04/22/25 12:00 O2 Del Method Room Air 04/22/25 12:00 O2 Flow Rate 2 04/21/25 08:00 BMI result Body Mass Index 30.8 Objective Data Active Medications Acetaminophen (Acetaminophen 325 Mg Tablet) 975 mg PO Q6H PRN PRN Reason: chronic back pain 1-3,spasms Last Admin: 04/22/25 01:46 EST Dose: 975 mg Documented By: CHINEDU Albuterol/Ipratropium (Albuterol/Iprat 2.5/0.5mg 3 Ml Ampul.Neb) 3 ml INHALE RQ4H WHILE AWAKE PRN PRN Reason: Wheezing Baclofen (Baclofen 10 Mg Tablet) 15 mg PO TID [facility] Last Admin: 04/22/25 08:00 Dose: 15 mg Documented By: JUVENAL Enoxaparin Sodium (Enoxaparin Sodium 40 Mg/0.4 Ml Syringe) 40 mg SUBCUT Q24H [facility] Last Admin: 04/21/25 18:10 Dose: 40 mg Documented By: JUVENAL Piperacillin Sod/Tazobactam (Sod 4.5 gm/ Sodium Chloride) 100 mls @ 200 mls/hr IV Q6H [facility] Last Infusion: 04/22/25 08:20 Dose: Infused Documented By: JUVENAL Latanoprost (Latanoprost 0.005 % Ophth Elizabeth 2.5 Ml Drops) 1 drop EYE-BOTH BEDTIME [facility] Last Admin: 04/21/25 20:11 Dose: 1 drop Documented By: CHINEDU Levetiracetam (Levetiracetam 1,000 Mg Tablet) 1,000 mg PO BID [facility] Last Admin: 04/22/25 08:00 Dose: 1,000 mg Documented By: JUVENAL Melatonin (Melatonin 3 Mg Tablet) 6 mg PO BEDTIME [facility] Last Admin: 04/21/25 20:23 Dose: 6 mg Documented By: CHINEDU Sodium Chloride (0.9 % Sodium Chloride Flush 3 Ml Syringe) 3 ml IVFLUSH QSHIFT [facility] Last Admin: 04/22/25 07:51 Dose: 3 ml Documented By: JUVENAL Tramadol HCl (Tramadol Hcl 50 Mg Tablet) 100 mg PO Q8H PRN PRN Reason: LOWER BACK PAIN Last Admin: 04/22/25 10:42 Dose: 100 mg Documented By: JUVENAL Trazodone HCl (Trazodone Hcl 25 Mg Halftab) 25 mg PO TID PRN PRN Reason: Anxiety Labs 04/22/25 05:54 04/20/25 06:45 Labs: Laboratory Results - last 24 hr 04/22/25 05:54 MCV 93.0 MCH 29.6 MCHC 31.9 RDW 13.7 Plt Count 158 L MPV 9.5 Immature Gran % (Auto) 2.3 H Neut % (Auto) 62.1 Lymph % (Auto) 17.1 L [place] % (Auto) 12.6 H Eos % (Auto) 5.5 H Baso % (Auto) 0.4 Lymph # (Auto) 0.8 L [place] # (Auto) 0.6 Eos # (Auto) 0.3 Baso # (Auto) 0.0 Abs Immat Gran (auto) 0.11 H Absolute Neuts (auto) 3.0 Absolute Nucleated RBC 0.000 Nucleated RBC % (auto) 0.0 Phosphorus 2.3 L Magnesium 2.3 Assessment and Plan (1) Sepsis with acute organ dysfunction and septic shock: Status: Acute (2) Chronic back pain: Status: Acute (3) Dementia: Status: Acute (4) Hypoxia: Status: Acute (5) Pneumonia: Status: Acute (6) Acute respiratory failure with hypoxia: Status: Acute (7) Hypotension: Status: Acute Plan 69-year-old male with TBI, epilepsy, Hodgkin lymphoma, and dementia, admitted from SNF with acute hypoxic respiratory failure and septic shock due to pneumonia, now stabilized and transferred from MICU to the medical floor. Pneumonia (Healthcare-associated, right lower lobe) Recent diagnosis of pneumonia at [facility], confirmed by chest X-ray (RLL infiltrate), presenting with hypoxia and increased O2 requirements. Treated empirically with broad-spectrum antibiotics (initially ceftriaxone, then zosyn; vancomycin added and discontinued after negative MRSA screen). PLAN: - Continue zosyn - Pulmonary hygiene and incentive spirometry as tolerated. Sepsis with Acute Organ Dysfunction and Septic Shock (Resolved) Presented with hypotension, hypothermia, lactic acidosis, and bandemia. Required vasopressors (norepinephrine) and aggressive IV fluids. Now off vasopressors and hemodynamically stable. PLAN: - Monitor vital signs and perfusion parameters. - Maintain euvolemia; avoid fluid overload. Acute Hypoxic Respiratory Failure Initially required 5L NC, now weaned to 1L NC with SpO2 92?95%. Diminished breath sounds, no rales/wheezing. PLAN: - Wean O2 as tolerated - Pulmonary toilet and mobilization as able. Encephalopathy (Toxic-metabolic, baseline dementia/TBI) Altered mental status on admission, likely multifactorial (sepsis, hypoxia, underlying dementia/TBI). Now more alert and oriented to person/place. PLAN: - Monitor mental status and document changes. - Avoid NETWORK STRATEGIST depressants; minimize sedating medications. Thrombocytopenia and Normocytic Anemia Platelets low (jarrod ?103?111), Hgb 10?12.7, likely multifactorial (sepsis, chronic disease, possible marrow suppression from lymphoma). PLAN: - Trend CBC daily. - Monitor for bleeding. - Transfuse if symptomatic or Hgb <7. - Hematology consult if persistent or worsening cytopenias. Acute Kidney Injury (Improved) Initial BUN/Cr elevation (BUN 35, Cr 1.05), likely pre-renal from sepsis/hypoperfusion. Now improved with fluids. PLAN: - Monitor renal function and electrolytes. - Maintain euvolemia. - Avoid nephrotoxins. Electrolyte Abnormalities Mild hypophosphatemia (2.6?2.7), mild hyperchloremia, transient lactic acidosis. PLAN: - Replete electrolytes as needed. - Monitor daily BMP/Mg/Phos. Chronic Conditions - Epilepsy - TBI - Hodgkin Lymphoma - BPH - GERD - Chronic Pain DVT: Enoxaparin 40mg OD SQ CODE: DNR/DNI Total time managing care of this patient today: 35 minutes. Quality Stroke Does the patient have a stroke diagnosis?: No VTE Prior VTE?: No VTE Risk Level:: Medical - moderate - high VTE Device Contraindication: N/A - Device Ordered VTE Drug Contraindication: N/A - Med Ordered
[2025-04-22 15:41] VITALS: BP 117/63; PULSE 70; RESP 16; TEMP 36.3; O2SAT 93
[2025-04-22 19:09] VITALS: BP 135/74; PULSE 80; RESP 16; TEMP 36; O2SAT 94
[2025-04-22] MEDS: traZODone HCL 25 MG HALFTAB PO (20:05)
[2025-04-22] MEDS: Latanoprost 0.005 % Ophth Sol 2.5 ML DROPS 1 DROP EYE-BOTH (20:08)
[2025-04-23] VITALS: BP 130/87; PULSE 60; RESP 16; TEMP 36.4; O2SAT 93
[2025-04-23 04:00] VITALS: BP 133/64; PULSE 68; RESP 16; TEMP 35.7; O2SAT 90
[2025-04-23 05:30] VITALS: BMI 28.4
[2025-04-23 05:59] LABS: MANUAL DIFF FLAG NO
[2025-04-23 06:18] LABS: Anion Gap 11 (12-20); Blood Urea Nitrogen 19 mg/dL (9-16); Calcium 9.6 mg/dL (8.4-10.2); Carbon Dioxide 29 mmol/L (22-29); Chloride 102 mmol/L (96-108); Creatinine Clr Calc Pharmacy 107.4; Estimated Glomerular Filt Rate > 60; Potassium 4.2 mmol/L (3.3-5.1); Sodium 138 mmol/L (135-145)
[2025-04-23 06:22] LABS: Hematocrit 35.7 % (42.0-52.0); Hemoglobin 11.4 g/dl (14.0-18.0); Imm Gran Abs Auto 0.11 X10*3/uL (0.00-0.03); Imm Gran Pct Auto 2.5 % (0.0-0.4); Lymphocytes Absolute Auto 0.7 X10*3/uL (1.2-4.9); Mean Corpuscular HGB Conc 31.9 g/dl (31.0-36.0); Mean Corpuscular Hemoglobin 29.5 pg (27.0-33.0); Mean Corpuscular Volume 92.5 fL (80.0-98.0); NRBC Abs Auto 0.000 X10*3/uL (0.0-0.012); NRBC Pct Auto 0.0 /100WBC (0.0-0.2); Platelet Count 173 X10*3/uL (160-400); Red Blood Count 3.86 X10*6/uL (4.60-5.80); White Blood Count 4.3 X10*3/uL (4.8-10.8)
[2025-04-23 07:28] VITALS: BP 162/82; PULSE 68; RESP 17; TEMP 35.9; O2SAT 90
--- NOTE | 2025-04-23 11:54 | MHC.SL.SWA ---
Addendum entered by Majo Pool MA, CCC-PEOPLESOFT HR DEVELOPER 04/23/25 12:47: Clarification of diet: Rec CONTINUE NDD2 with NECTAR THICK Liquids; DISREGARD note in comments with incorrect diet recommendation. Upon discharge recommend continued PEOPLESOFT HR DEVELOPER dysphagia tx. Original Note: Speech Pathologist Impression: Mild oropharyngeal dysphagia Risk of Aspiration Due to: cognition, hx of PNA Dysphasia Diet Status: Recommend continue on NECTAR THICK Liquids and Ground/Mechanical (NDD2), pills crushed in puree. Continue support/1-1 supervision at meals. Liquid Consistency and Strategies for Safe Swallow: Liquid Intake Recommendation: [place] Thick Liquid Intake Strategies: Small Sips No Straws Solid Food Consistency: Dietary Recommendations: Grnd/Mech Altered (NDD2) Additional Modifications to Solid Foods: Oral Medication Intake: Crushed with Puree Please contact the pharmacy regarding appropriate crushable or liquid drug formulations that are available whenever modified delivery is recommended. Compensatory Strategies and Precautions to be Taken for Safe Swallow: Sitting Upright (90 deg) No Straw Liquids from Cup Small Bites and Sips Alternate Liquids/Solids Supervision While Eating and Drinking for Safe Swallow: Direct Supervision (1:1) Foods to Avoid: Swallowing Recommended Treatments: Compens. Strategy Educat. Recommendation for Speech: Inpatient Speech Therapy Comment: Patient seen this morning for dysphagia treatment. Patient seen in bed with family at bedside (sister and sister's ). Patient given trials of thin liquids vs NTLs this date. Oral care of minimal amount of thin mouthwash on swab provided per patient's request prior to trials. Patient with mildly noted vocal changes on both trials of thin liquids and NTLs; via cued small cup sip self-administered. Patient with no overt s/sx of penetration/aspiration. Patient with known impulsivity d/t cognitive deficits. Patient requiring moderate cueing to modify size of cup sip. Patient also given pudding with donald cracker crumbs; adequate mastication, cohesion and clearance with noted fast rate of self feeding requiring moderate cues to modify. Family reporting patient may be going home today; educated on diet recommendations and recommendations to continue speech therapy post-acute for dysphagia. D/t impulsivity and noted vocal changes, recommend CONTINUE on diet of NDD2, [place] Thick Liquids. Mild oral dysphagia and impulsivity increase pt risk for aspiration. Recc NDD2 with thins, straws ok, aspiration precautions, 1:1 feeding, meds in puree. PEOP[employer]FT HR DEVELOPER following. Frequency/Duration: M-F daily Date Range for Service Req: Timeline to reassess: Cyber Special Agent Clinican/Clinical Fellow: No Supervisory Statement: I have reviewed and agree with the student/clinical fellow's documentation: N/A Speech Language Pathologist: Majo Pool M.A., CCC-[employer]LES[employer] HR DEVELOPER
[2025-04-23 12:00] VITALS: BP 130/75; PULSE 70; RESP 16; TEMP 36.1; O2SAT 93
--- NOTE | 2025-04-23 13:10 | HO.PM.IMPN ---
Subjective Subjective Date of Service: 04/23/25 Physical Exam Vital Signs: Vital Signs: Last Vital Signs Temp 96.6 F L 04/23/25 07:28 Pulse 68 04/23/25 07:28 Resp 17 04/23/25 07:28 BP 162/82 H 04/23/25 07:28 Pulse Ox 90 L 04/23/25 07:28 O2 Del Method Room Air 04/23/25 07:28 O2 Flow Rate 2 04/21/25 08:00 BMI result Body Mass Index 28.4 Objective Data Active Medications Acetaminophen (Acetaminophen 325 Mg Tablet) 975 mg PO Q6H PRN PRN Reason: chronic back pain 1-3,spasms Last Admin: 04/22/25 14:21 Dose: 975 mg Documented By: JUVENAL Albuterol/Ipratropium (Albuterol/Iprat 2.5/0.5mg 3 Ml Ampul.Neb) 3 ml INHALE RQ4H WHILE AWAKE PRN PRN Reason: Wheezing Baclofen (Baclofen 10 Mg Tablet) 15 mg PO TID [facility] Last Admin: 04/23/25 07:58 Dose: 15 mg Documented By: KIMANI Enoxaparin Sodium (Enoxaparin Sodium 40 Mg/0.4 Ml Syringe) 40 mg SUBCUT Q24H [facility] Last Admin: 04/22/25 16:45 Dose: 40 mg Documented By: JUVENAL Latanoprost (Latanoprost 0.005 % Ophth Elizabeth 2.5 Ml Drops) 1 drop EYE-BOTH BEDTIME [facility] Last Admin: 04/22/25 20:08 Dose: 1 drop Documented By: HAM Levetiracetam (Levetiracetam 1,000 Mg Tablet) 1,000 mg PO BID [facility] Last Admin: 04/23/25 07:58 Dose: 1,000 mg Documented By: KIMANI Melatonin (Melatonin 3 Mg Tablet) 6 mg PO BEDTIME [facility] Last Admin: 04/22/25 20:07 Dose: 6 mg Documented By: HAM Sodium Chloride (0.9 % Sodium Chloride Flush 3 Ml Syringe) 3 ml IVFLUSH QSHIFT [facility] Last Admin: 04/23/25 07:58 Dose: Not Given Documented By: KIMANI Non-Admin Reason: Previously Administered Tramadol HCl (Tramadol Hcl 50 Mg Tablet) 100 mg PO Q8H PRN PRN Reason: LOWER BACK PAIN Last Admin: 04/23/25 07:58 Dose: 100 mg Documented By: KIMANI Trazodone HCl (Trazodone Hcl 25 Mg Halftab) 25 mg PO TID PRN PRN Reason: Anxiety Last Admin: 04/22/25 20:05 Dose: 25 mg Documented By: HAM Labs 04/23/25 05:48 04/23/25 05:48 Labs: Laboratory Results - last 24 hr 04/23/25 05:48 MCV 92.5 MCH 29.5 MCHC 31.9 RDW 13.8 Plt Count 173 MPV 9.2 L Immature Gran % (Auto) 2.5 H Neut % (Auto) 67.8 Lymph % (Auto) 15.2 L [place] % (Auto) 9.2 Eos % (Auto) 4.6 H Baso % (Auto) 0.7 Lymph # (Auto) 0.7 L [place] # (Auto) 0.4 Eos # (Auto) 0.2 Baso # (Auto) 0.0 Abs Immat Gran (auto) 0.11 H Absolute Neuts (auto) 2.9 Absolute Nucleated RBC 0.000 Nucleated RBC % (auto) 0.0 Anion Gap 11 L Estim Creat Clear Calc 107.4 Estimated GFR > 60 Random Glucose 95 Calcium 9.6 Phosphorus 2.1 L Quality Stroke Does the patient have a stroke diagnosis?: No VTE Prior VTE?: No VTE Risk Level:: Medical - moderate - high VTE Device Contraindication: N/A - Device Ordered VTE Drug Contraindication: N/A - Med Ordered
--- NOTE | 2025-04-23 13:56 | MHC.CM.PN ---
DP: PT HAS BEEN MEDICALLY CLEARED FOR DC BACK TO [facility] FOR RESUMPTION OF LTC. BLS TRANSPORT BOOKED FOR 5 PM. RN/PROVIDER UPDATED. CENTER NOTIFIED WELL HCP PRCIE EDWARDS. FINAL IMM ISSUED.
--- NOTE | 2025-04-23 14:04 | PM.DS ---
DS: Providers Provider Date of Service: 04/23/25 Date of admission: 04/15/25 16:35 Date of discharge: 04/23/25 Primary care physician: Cinthya Jones MD DS: Diagnosis Discharge Diagnosis (1) Sepsis with acute organ dysfunction and septic shock: Status: Acute DS: Summary Hospital Course Hospital Course: Patient is a 69-year-old male with TBI, epilepsy, Hodgkin lymphoma, and dementia, admitted from SNF with acute hypoxic respiratory failure and severe septic shock due to presumed HCP pneumonia RLL, who required ICU stay from 04/15/2025 to 04/17/2025, has been on the floors from 04/17 2025 to the date of discharge 03/23/2025. Severe septic shock due to presumed HCP pneumonia RLL, requiring pressors and IV antibiotics AHRF 2/2 pna Toxic metabolic encephalopathy secondary to sepsis-back to baseline (presumed given patient is a poor historian at baseline) Patient is a long-term care resident, who recently had pneumonia at SNF, and presented to our hospital on 04/15/2025 with acute hypoxic respiratory failure, septic shock from superimposed, bacterial RLL HCA pneumonia and required pressor support for 2 days after which she was transitioned to the floors. He was treated with 10 days of IV antibiotic symptomatic improvement. Patient is not hypoxic on room air at the time of discharge. Thrombocytopenia and Normocytic Anemia - appears chronic , stable-follow up with PCP outpatient settings Acute Kidney Injury (Improved) likely prerenal-resolved with fluids Electrolyte Abnormalities, Mild hypophosphatemia, mild hyperchloremia, transient lactic acidosis- likely secondary to acute infection was monitored daily and repleted to goal good effect. Chronic Conditions -continued home meds without any changes Epilepsy-continue home medications, asymptomatic this admission TBI baseline Hodgkin Lymphoma-monitored with labs, chronic stable BPH continued home meds GERD continued home meds Chronic Pain continued home meds DVT: Enoxaparin 40mg OD SQ This note is constructed using voice recognition software. While every effort has been made to ensure accuracy, email marketing executive errors may have been included. Patient is a long-term care patient and is going back [facility] Time spent discussing smoking cessation with patient: more than 10 minutes Status at Discharge Cognitive/behavioral status at discharge: Likely Dementia at baseline, unknown baseline as he is a poor historian and Healthcare proxy unable to state his baseline at [facility] Overall status at discharge: patient is progressing back to baseline Time Attestation Discharge Coordination Time (in mins): 45 Quality: Safe Use of Opioids Does Pt have an Active Cancer Diagnosis on the Problem List?: Yes Opioid Measure Date for [facility] Report: 03/24/25 Opioid Measure Time for [facility] Report: 15:35 Quality: Stroke Does the patient have a stroke diagnosis?: No Physical Exam Exam: Exam: General: Eating breakfast, oriented to time place person NOT to situation -likely his baseline, however unclear as he is a poor historian at baseline given dementia and medical comorbidities Cardiac, Respiratory, GI and neurological: Difficult given patient's baseline dementia, behavioral difficulties, and agitation. Attempts have been made to deescalate, thus far unsuccessful as noted on his prolonged hospitalization. Vital Signs: Vital Signs: Last Vital Signs Temp 96.6 F L 04/23/25 07:28 Pulse 68 04/23/25 07:28 Resp 17 04/23/25 07:28 BP 162/82 H 04/23/25 07:28 Pulse Ox 90 L 04/23/25 07:28 O2 Del Method Room Air 04/23/25 07:28 O2 Flow Rate 2 04/21/25 08:00 BMI result Body Mass Index 28.4 DS: Data Data Completed and Pending Completed studies during hospitalization [Text1]: Procedures Reposition Right Upper Femur with Intramedullary Internal Fixation Device, Percutaneous Approach (10/05/22) Labs on day of discharge: Laboratory Results - last 24 hr 04/23/25 05:48 WBC 4.3 L RBC 3.86 L Hgb 11.4 L Hct 35.7 L MCV 92.5 MCH 29.5 MCHC 31.9 RDW 13.8 Plt Count 173 MPV 9.2 L Immature Gran % (Auto) 2.5 H Neut % (Auto) 67.8 Lymph % (Auto) 15.2 L [place] % (Auto) 9.2 Eos % (Auto) 4.6 H Baso % (Auto) 0.7 Lymph # (Auto) 0.7 L [place] # (Auto) 0.4 Eos # (Auto) 0.2 Baso # (Auto) 0.0 Abs Immat Gran (auto) 0.11 H Absolute Neuts (auto) 2.9 Absolute Nucleated RBC 0.000 Nucleated RBC % (auto) 0.0 Sodium 138 Potassium 4.2 Chloride 102 Carbon Dioxide 29 Anion Gap 11 L BUN 19 H Creatinine 0.70 Estim Creat Clear Calc 107.4 Estimated GFR > 60 Random Glucose 95 Calcium 9.6 Phosphorus 2.1 L Discharge Plan Discharge Anticipated Discharge Date/Time: 04/23/25 13:45 Patient Disposition: er [facility] Discharge Diagnosis: Severe septic shock causing AHRF & toxic metabolic encephalopathy 2/2 possible HCP pna, Referrals: [facility] [Outside] - 1 Week Referral Note: TRANSFER FOR RESUMPTION OF [facility] [employer]INE[employer] [facility]. Cinthya Jones MD [Primary Care Provider, Internal Medicine] - 1 Week Discharge Medications: Continued latanoprost 0.005 % drops 1 drp ophthalmic (eye) BEDTIME tamsulosin 0.4 mg capsule 0.4 mg PO BEDTIME timolol maleate 0.5 % drops 1 drp ophthalmic-Left DAILY levetiracetam 1,000 mg tablet 1,000 mg PO BID Linzess 290 mcg capsule 290 mcg PO DAILY baclofen 5 mg tablet 15 mg PO TID melatonin 3 mg Tablet 6 mg PO BEDTIME acetaminophen 500 mg Tablet 1,000 mg PO TID Rx Instructions: back pain guaifenesin [Ophelia-Tussin] 100 mg/5 mL Liquid 200 mg PO Q4H PRN (Reason: Cough) magnesium hydroxide [Milk of Magnesia] 400 mg/5 mL Suspension 30 ml PO DAILY PRN (Reason: Constipation, if no BM for 3 days) bisacodyl 10 mg Suppository 10 mg ME DAILY PRN (Reason: constipation, if no BM for 8 hours after MOM) Rx Instructions: if no BM 8 hours after milk of magnesia alum-mag hydroxide-simeth [Ophelia-Lanta] 200-200-20 mg/5 mL Suspension 30 ml PO Q4H PRN (Reason: Indigestion) menthol [Icy Hot (menthol)] 5 % Adhesive Patch,Medicated 1 patch TOPICAL Q12H PRN (Reason: hip pain) Rx Instructions: Apply to right hip in AM, remove in PM tizanidine 2 mg tablet 2 mg PO BEDTIME mirtazapine 7.5 mg tablet 7.5 mg PO BEDTIME trazodone 50 mg tablet 25 mg PO TID tramadol 50 mg tablet 100 mg PO Q8H PRN (Reason: LOWER BACK PAIN) ergocalciferol (vitamin D2) [Vitamin D2] 1,250 mcg (50,000 unit) Capsule 1,250 mcg PO Q28D fluticasone furoate [Arnuity Ellipta] 100 mcg/actuation blister with device 1 inh inhalation DAILY ipratropium-albuterol 0.5 mg-3 mg(2.5 mg base)/3 mL Solution For Nebulization 3 ml INHALATION Q4H PRN (Reason: pneumonia/SOB) albuterol sulfate 2.5 mg /3 mL (0.083 %) Solution For Nebulization 2.5 mg INHALATION Q6H PRN (Reason: SOB/wheezing) Fleet Enema 19-7 gram/118 mL Enema 118 ml ME DAILY PRN (Reason: constipation, if no BM for 8 hours after bisacodyl) calcium carbonate 500 mg calcium (1,250 mg) Tablet,Chewable 500 mg PO Q8H PRN (Reason: Heartburn) docusate sodium 100 mg capsule 100 mg PO BID PRN (Reason: Constipation) Discontinued doxycycline hyclate 100 mg Tablet 100 mg PO BID amoxicillin-pot clavulanate 875-125 mg Tablet 1 tab PO BID Rx Instructions: END DATE 04/22/25 Discharge Orders: Discharge Order (Routine); Ordered 04/23/25 Ordered By: Ana Ness Diet: Advance to usual diet Activity on Discharge: As tolerated Stand Alone Forms: Patient Portal Discharge page Print Language: [place] Care Plan Goals: Follow-up with PCP Health Concerns: Follow up with PCP, aspiration precautions Plan of Treatment: Discontinued antibiotics as he completed 10 day course of IV antibiotics Assessment: See above Patient Instructions: Pneumonia (DC)
[2025-04-23] MEDS: 0.9 % Sodium Chloride Flush 3 ML SYRINGE IVFLUSH (15:50)
[2025-04-23 15:54] VITALS: BP 132/64; PULSE 73; RESP 18; TEMP 36.4; O2SAT 93
[2025-04-23 17:46] VITALS: BP 135/65; PULSE 85; RESP 16; TEMP 36.1; O2SAT 93
== END 2025-04-23 17:44 | disposition skilled nursing facility (03) | DRG 871 ==
LOC: HO.ED 15:02 → HO.EDOVER 16:40 → HO.ICU 16:45 → HO.IMC 04-17 14:15 → HO.S3 04-20 06:50
PROVIDERS: Internal Medicine Critical Care Medicine; Nurse Practitioner Family; Physician Assistant Medical; Admitting Provider Internal Medicine Critical Care Medicine; Emergency Provider Emergency Medicine; PCP Internal Medicine; Visit Provider Student in an Organized Health Care Education/Training Program
DX: A41.9 Sepsis, unspecified organism (principal); G92.8 Other toxic encephalopathy; R65.21 Severe sepsis with septic shock; J96.01 Acute respiratory failure with hypoxia; J15.9 Unspecified bacterial pneumonia; N17.9 Acute kidney failure, unspecified; C81.90 Hodgkin lymphoma, unspecified, unspecified site; S06.9XAS Unspecified intracranial injury with loss of consciousness status unknown, sequela; Z66 Do not resuscitate; N40.0 Benign prostatic hyperplasia without lower urinary tract symptoms; D63.0 Anemia in neoplastic disease; D69.59 Other secondary thrombocytopenia; E83.39 Other disorders of phosphorus metabolism; E87.8 Other disorders of electrolyte and fluid balance, not elsewhere classified; G40.909 Epilepsy, unspecified, not intractable, without status epilepticus; F03.90 Unspecified dementia, unspecified severity, without behavioral disturbance, psychotic disturbance, mood disturbance, and anxiety; Z20.822 Contact with and (suspected) exposure to COVID-19; Z79.899 Other long term (current) drug therapy
CPT/HCPCS: 36415; 70450; 71045; 80048; 80053; 80202; 81001; 82040; 82803; 83605; 83735; 83880; 84100; 84484; 85007; 85025; 85027; 85610; 87040; 87086; 87502; 87635; 87640; 87641; 92526; 92610; 93005; 97162; 99285; J0696; J1308; J1650; J1953; J2543; J3373; J3374; J7120; P9047

== ENCOUNTER → 2025-04-15 13:51 | Outpatient (BNV) | payer MEDICARE, BC, SELFPAY | PROVIDERS: Admitting Provider Internal Medicine Critical Care Medicine; Emergency Provider Emergency Medicine; PCP Internal Medicine; Visit Provider Nuclear Medicine | DX: I51.7 Cardiomegaly (principal); R09.89 Other specified symptoms and signs involving the circulatory and respiratory systems | CPT/HCPCS: 71045 ==

== ENCOUNTER → 2025-04-15 13:51 | Outpatient (BNV) | payer MEDICARE, BC, SELFPAY | PROVIDERS: Admitting Provider Internal Medicine Critical Care Medicine; Emergency Provider Emergency Medicine; PCP Internal Medicine; Visit Provider Internal Medicine | DX: I44.0 Atrioventricular block, first degree (principal); I45.4 Nonspecific intraventricular block | CPT/HCPCS: 93010 ==

== ENCOUNTER 2025-04-15 16:35 | Outpatient (BNV) | payer MEDICARE, BC, SELFPAY | END 2025-04-16 01:39 | PROVIDERS: Admitting Provider Internal Medicine Critical Care Medicine; Emergency Provider Emergency Medicine; PCP Internal Medicine; Visit Provider Radiology Diagnostic Radiology | DX: R41.82 Altered mental status, unspecified (principal) | CPT/HCPCS: 70450 ==

== ENCOUNTER → 2025-04-15 16:35 | Outpatient (BNV) | payer MEDICARE, BC, SELFPAY | PROVIDERS: Admitting Provider Internal Medicine Critical Care Medicine; Emergency Provider Emergency Medicine; PCP Internal Medicine; Visit Provider Hospitalist | DX: A41.9 Sepsis, unspecified organism (principal); R65.21 Severe sepsis with septic shock | CPT/HCPCS: 99239 ==

== ENCOUNTER → 2025-04-15 16:35 | Outpatient (BNV) | payer MEDICARE, BC, SELFPAY | PROVIDERS: Admitting Provider Internal Medicine Critical Care Medicine; Emergency Provider Emergency Medicine; PCP Internal Medicine; Visit Provider Internal Medicine Critical Care Medicine | DX: J96.01 Acute respiratory failure with hypoxia (principal); A41.9 Sepsis, unspecified organism; R65.21 Severe sepsis with septic shock; J18.9 Pneumonia, unspecified organism | CPT/HCPCS: 99291 ==